=== PATIENT | female | born 1940 | race Caucasian/White ===

== ENCOUNTER 2016-05-25 06:46 | Day surgery (SDC) | payer OTHER, MEDICARE ==
[2016-05-25 07:48] VITALS: BMI 23.3
[2016-05-25] MEDS ORDERED: LIDOCAINE HCL/PF 1% SDV 5ML VIAL ONE (07:56)
[2016-05-25] MEDS ORDERED: PROPOFOL 20 ML ONE ×2 (07:56)
[2016-05-25 08:45] VITALS: TEMP 98.2
[2016-05-25 09:56] VITALS: BP 148/66; PULSE 71
--- NOTE | 2016-05-26 13:44 | PATH ---
Surgical Pathology Report Patient Name: BRIDGET HUNTER [facility]. Rec. #: [id number] /Age/Gender: 1940 (Age: 75) / F Account: [id number] Location: U-ENDOSCOPY Taken: 05/25/2016 Received: 05/25/2016 Reported: 05/26/2016 Physicians: Alvarez Vásquez M.D. Specimen(s) Received A: BX SIGMOID B: BX RECTUM Clinical History Ulcerative colitis Ulcerative proctitis Final Diagnosis A. COLON, SIGMOID, BIOPSY: COLONIC MUCOSA WITH MILD CHRONIC COLITIS WITH FOCAL CRYPT ALTERATION. NO EVIDENCE OF GRANULOMATA OR DYSPLASIA. B. RECTUM, BIOPSY: RECTAL MUCOSA WITH ACTIVE MODERATE CHRONIC PROCTITIS WITH CRYPTITIS, FOCAL MULTINUCLEATED GIANT CELL REACTION, GRANULATION TISSUE AND MODERATE CRYPT ALTERATION. NO EVIDENCE OF DYSPLASIA. Electronically Signed Heber Hooks M.D. Gross Description A. Received in formalin, labeled "biopsy sigmoid" is a kraus, irregular portion of soft tissue measuring 0.2 cm in greatest dimension. The specimen is submitted in toto in one cassette. B. Received in formalin, labeled "biopsy rectum" is a kraus, irregular portion of soft tissue measuring 0.6 cm in greatest dimension. The specimen is submitted in toto in one cassette. 05/25/201605/25/2016
== END 2016-05-25 09:57 | disposition home or self-care (01) ==
LOC: JASU-ENDO 06:46
PROVIDERS: ATTEND Internal Medicine Gastroenterology
PROC: 0DBP8ZX Excision of Rectum, Via Natural or Artificial Opening Endoscopic, Diagnostic (ICD-10-PCS; principal; 2016-05-25 08:00)
DX: K62.6 Ulcer of anus and rectum (principal); K64.8 Other hemorrhoids
CPT/HCPCS: 88305-TC

== ENCOUNTER 2017-01-28 07:27 | Day surgery (SDC) | payer OTHER, MEDICARE ==
[2017-01-28 09:36] VITALS: TEMP 97.9
--- NOTE | 2017-01-28 09:53 | HP ---
Satellite [facility] - Chief Complaint Chief Complaint: PAtient seen and examined. Still has abdominal cramping, diarrhea. Denies any cough, shortness of breath, abdominal pain, nausea, vomiting, diarrhea/urinary symptoms History Source: Patient - Past Medical History Allergies/Adverse Reactions: Allergies Allergy/AdvReac Type Severity Reaction Status Date / Time No Known Allergies Allergy Verified 08/13/11 14:58 Cardiovascular: Yes: HTN Gastrointestinal: Yes: Ulcerative Colitis, Other - Current Medications Current Medications: Home Medications Medication Instructions Recorded Nifedipine [Procardia Xl] 60 mg PO DAILY 08/13/11 Mesalamine [Lialda] 1.2 gm PO DAILY 02/28/16 Sumatriptan Succinate [Imitrex] 50 mg PO PRN 02/28/16 Aspirin/Acetaminophen/Caffeine 1 each PO PRN PRN 03/02/16 [Excedrin Migraine Caplet] Mesalamine Enema [Rowasa Enema -] 4 gm RC HS #0 enema 03/02/16 Omeprazole 20 mg PO DAILY 03/02/16 Ipratropium/Albuterol Sulfate 4 gm IH DAILY 05/25/16 [Combivent Respimat Inhal Ponce] Satellite Physical Exam - Physical Examination Vital Signs: Vital Signs Period Temp Pulse Resp BP Sys/Small Pulse Ox Last 24 Hr 97.9 F-97.9 F 78-78 16-16 127-127/81-81 General Appearance: Well Developed, Alert & Oriented x3 Lung: Clear to auscultation, Normal air movement Heart: Regular rate & rhythm, Normal S1, Normal S2 Abdomen: Soft, No tenderness, Normal bowel sounds Extremities: No edema Neurological: Intact Satellite Impression/Plan - Impression/Plan Impression: 76 y/o patient with ulcerative colitis, iron deficiency anemia. reviewed PET-CT results with patient --stable RUL lung nodule, with minimal activity. New 0.8cm lt. adrenal uptake ---will need repeat CT a/p per adrenal protocol in 6 weeks from 01/07. will continue iv iron. Rediscussed the need to f/u with Dr. Arce. Discussed dthat adrenal finding is worrsiome and they need to f/u with CT scan adrenal protocol and f/u after. aslo need to f/u with Dr. huffman
[2017-01-28] MEDS ORDERED: IRON SUCROSE INJECTION 100 MG in SODIUM CHLORIDE 100 ML IVPB ONE (10:00)
[2017-01-28 11:19] VITALS: BP 127/68; PULSE 75
== END 2017-01-28 10:15 | disposition home or self-care (01) ==
LOC: JONCCHEMO 07:27 → J7W 08:48 → JONCCHEMO 10:15
PROVIDERS: ATTEND Internal Medicine Hematology & Oncology
PROC: 3E033GC Introduction of Other Therapeutic Substance into Peripheral Vein, Percutaneous Approach (ICD-10-PCS; principal; 2017-01-28)
DX: D50.9 Iron deficiency anemia, unspecified (principal); K51.90 Ulcerative colitis, unspecified, without complications
CPT/HCPCS: 36415; 80053; 80061; 81003; 81015; 82306; 82607; 83036; 83721; 84439; 84443; 85027; 96365; 96417; J1756

== ENCOUNTER 2017-02-11 07:35 | Day surgery (SDC) | payer OTHER, MEDICARE ==
[2017-02-11] MEDS: IRON SUCROSE INJECTION 100 MG in SODIUM CHLORIDE 100 ML IVPB ONE ×2 (08:45→11:24)
[2017-02-11 08:56] VITALS: TEMP 98.2
[2017-02-11 09:26] VITALS: BP 118/72; PULSE 79
== END 2017-02-11 09:30 | disposition home or self-care (01) ==
LOC: JONCNONCHE 07:35 → J7W 08:38 → JONCNONCHE 09:30
PROVIDERS: ATTEND Internal Medicine Hematology & Oncology
PROC: 3E033GC Introduction of Other Therapeutic Substance into Peripheral Vein, Percutaneous Approach (ICD-10-PCS; principal; 2017-02-11)
DX: E61.1 Iron deficiency (principal); K90.9 Intestinal malabsorption, unspecified
CPT/HCPCS: 96365; 96417; J1756

== ENCOUNTER 2017-04-02 07:40 | Day surgery (SDC) | payer OTHER, MEDICARE ==
[2017-04-02] MEDS ORDERED: IRON SUCROSE INJECTION 100 MG in SODIUM CHLORIDE 100 ML IVPB ONE (08:30)
[2017-04-02 09:03] VITALS: TEMP 98.2
[2017-04-02 09:50] VITALS: BP 128/76; PULSE 83
== END 2017-04-02 09:40 | disposition home or self-care (01) ==
LOC: JONCNONCHE 07:40 → J7W 08:29 → JONCNONCHE 09:40
PROVIDERS: ATTEND Internal Medicine Hematology & Oncology
PROC: 3E033GC Introduction of Other Therapeutic Substance into Peripheral Vein, Percutaneous Approach (ICD-10-PCS; principal; 2017-04-02)
DX: D50.9 Iron deficiency anemia, unspecified (principal)
CPT/HCPCS: 36415; 80053; 82728; 83540; 83550; 85025; 85651; 86140; 96365; J1756

== ENCOUNTER 2017-11-02 09:47 | Observation (INO) | payer OTHER, MEDICARE ==
[2017-11-02 10:10] VITALS: BMI 20.3
--- NOTE | 2017-11-02 10:19 | PDOC ---
History of Present Illness - General Chief Complaint: Blood Transfusion Stated Complaint: BLOOD TRANSFUSION (PCP SENT) Time Seen by Provider: 11/02/17 10:19 - History of Present Illness Initial Comments: 11/02/17 10:20 Ms. Smith is a 77 yo female w/ pmh of ulcerative colitis, COPD/emphysema, headaches, and lung nodule (followed by Dr. Aldrich) who presents for evaluation of noted low hemoglobin on office labs to 5.5. Patient reports she has felt more tired for the past week but has otherwise been at her baseline. The patient denies chest pain, shortness of breath, headache and dizziness. Denies fever, chills, nausea, vomit, diarrhea and constipation. Denies dysuria, frequency, urgency and hematuria. Allergies: NKDA Past History - Past Medical History Allergies/Adverse Reactions: Allergies Allergy/AdvReac Type Severity Reaction Status Date / Time No Known Allergies Allergy Verified 11/02/17 10:06 Home Medications: Ambulatory Orders Nifedipine [Procardia Xl] 60 mg PO DAILY 08/13/11 Omeprazole 20 mg PO DAILY 03/02/16 Ipratropium/Albuterol Sulfate [Combivent Respimat 20-100 Mcg] 4 gm IH DAILY Sumatriptan Succinate [Imitrex] 100 mg PO PRN #90 tab 02/27/17 Aspirin/Acetaminophen/Caffeine [Excedrin Migraine Caplet] 1 each PO PRN Anemia: (IRON DEFICIENCY ANEMIA) Asthma: Yes (EMPHYSEMA) Cancer: Yes (UTERINE;) Cardiac Disorders: No CVA: No COPD: Yes CHF: No Dementia: No Diabetes: No GI Disorders: Yes (ULCERATIVE COLITIS;IBD) Disorders: No HTN: Yes Hypercholesterolemia: Yes Liver Disease: No Seizures: No Thyroid Disease: No - Surgical History Abdominal Surgery: Yes (PARTIAL HYSTERECTOMY) Appendectomy: No Cardiac Surgery: No Cholecystectomy: Yes Lung Surgery: No Neurologic Surgery: No Orthopedic Surgery: No - Suicide/Smoking/Psychosocial Hx Smoking History: Former smoker Have you smoked in the past 12 months: No If you are a former smoker, when did you quit?: 1992 Information on smoking cessation initiated: No Hx Alcohol Use: Yes (SOCIALLY) Drug/Substance Use Hx: No Substance Use Type: None Review of Systems - Review of Systems Comments:: 11/02/17 10:24 GENERAL/CONSTITUTIONAL: Generalized weakness. No fever or chills. HEAD, EYES, EARS, NOSE AND THROAT: No change in vision. No ear pain or discharge. No sore throat. CARDIOVASCULAR: No chest pain or shortness of breath RESPIRATORY: No cough, wheezing, or hemoptysis. GASTROINTESTINAL: No nausea, vomiting, diarrhea or constipation. GENITOURINARY: No dysuria, frequency, or change in urination. MUSCULOSKELETAL: No joint or muscle swelling or pain. No neck or back pain. SKIN: No rash NEUROLOGIC: No headache, vertigo, loss of consciousness, or change in strength/ sensation. ENDOCRINE: No increased thirst. No abnormal weight change HEMATOLOGIC/LYMPHATIC: No anemia, easy bleeding, or history of blood clots. ALLERGIC/IMMUNOLOGIC: No hives or skin allergy. *Physical Exam - Vital Signs Last Vital Signs Temp Pulse Resp BP Pulse Ox 97.9 F 78 20 141/79 98 11/02/17 09:55 11/02/17 09:55 11/02/17 09:55 11/02/17 09:55 11/02/17 09:55 - Physical Exam Comments: 11/02/17 10:24 GENERAL: Awake, alert, and fully oriented, in no acute distress HEAD: No signs of trauma, normocephalic, atraumatic EYES: PERRLA, EOMI, sclera anicteric, conjunctiva clear ENT: Auricles normal inspection, hearing grossly normal, nares patent, oropharynx clear without exudates. Moist mucosa NECK: Normal ROM, supple, no lymphadenopathy, JVD, or masses LUNGS: No distress, speaks full sentences, clear to auscultation bilaterally HEART: Regular rate and rhythm, normal S1 and S2, no murmurs, rubs or gallops, peripheral pulses normal and equal bilaterally. ABDOMEN: Soft, nontender, normoactive bowel sounds. No guarding, no rebound. No masses EXTREMITIES: Normal inspection, Normal range of motion, no edema. No clubbing or cyanosis. NEUROLOGICAL: Cranial nerves II through XII grossly intact. Normal speech, normal gait, no focal sensorimotor deficits SKIN: Warm, Dry, normal turgor, no rashes or lesions noted. ED Treatment Course - LABORATORY CBC & Chemistry Diagram: 11/02/17 10:39 11/02/17 10:39 Medical Decision Making - Medical Decision Making 11/02/17 11:29 Ms. Smith is a 77 yo female w/ pmh as described who presents for evaluation of anemia noted on outpatient labs and generalized weakness. Labs confirmed as below. Order placed for 2 units of blood for treatment. Patient currently pending admission for transfusion. 11/02/17 11:45 Discussed patient w/ Dr. Dunham for admission and alerted oncologist Dr. Duran. Patient admitted for further evaluation. *DC/Admit/Observation/Transfer Diagnosis at time of Disposition: Anemia Qualifiers: Anemia type: unspecified type Qualified Code(s): D64.9 - Anemia, unspecified - Discharge Dispostion Decision to Admit order: Yes - Referrals Referrals: Jackeline Dunham MD [Primary Care Provider] - - Patient Instructions - Post Discharge Activity
[2017-11-02 11:00] LABS: BASO % 1.4 % (0-2.0); EOS % 1.7 % (0-4.5); HEMATOCRIT 17.5 % (32.4-45.2); LYMPH % 27.6 % (8-40); MCHC 28.7 g/dl (32.0-36.0); MEAN CELL VOLUME 62.8 fl (80-96); MEAN PLT VOLUME 6.9 fl (7.5-11.1); NEUT % 61.3 % (42.8-82.8); PLATELET COUNT 307 K/MM3 (134-434); RBC 2.79 M/mm3 (3.60-5.2); RDW 20.1 % (11.6-15.6); WHITE BLOOD COUNT 2.9 K/mm3 (4.0-10.0)
[2017-11-02 11:30] LABS: ALBUMIN 3.1 g/dl (3.4-5.0); ALK PHOS 90 U/L (45-117); ANION GAP 7 (8-16); BILIRUBIN,TOTAL 0.4 mg/dL (0.2-1.0); BLOOD UREA NITROGEN 17 mg/dL (7-18); CHLORIDE 107 mmol/L (98-107); CO2 27 mmol/L (21-32); CREATININE 0.6 mg/dL (0.55-1.02); GLUCOSE,RANDOM 86 mg/dL (74-106); POTASSIUM 3.4 mmol/L (3.5-5.1); SGOT/AST 13 U/L (15-37); SGPT/ALT 16 U/L (12-78); SODIUM 141 mmol/L (136-145)
[2017-11-02] MEDS ORDERED: SUMAtriptan SUCCINATE 50 MG TABLET ONE (11:36)
[2017-11-02] MEDS ORDERED: SUMAtriptan SUCCINATE 50 MG TABLET PO SCH (11:45)
[2017-11-02] MEDS ORDERED: SUMAtriptan SUCCINATE 50 MG TABLET PO ONE (11:45)
[2017-11-02 12:18] LABS: ANISOCYTOSIS 3+; MACROCYTOSIS 0; PLATELET ESTIMATE NORMAL; TEAR DROP CELLS 1+
[2017-11-02 12:57] LABS: URINE APPEARANCE CLEAR; URINE BILIRUBIN NEGATIVE (<2.0 mg/dL); URINE COLOR YELLOW; URINE GLUCOSE (UA) NEGATIVE (NEGATIVE); URINE KETONE NEGATIVE (NEGATIVE); URINE LEUK ESTERASE TRACE (NEGATIVE); URINE NITRITE NEGATIVE (NEGATIVE); URINE UROBILINOGEN NEGATIVE mg/dL (0.2-1.0)
[2017-11-02 13:01] LABS: URINE PROTEIN 1+ (NEGATIVE)
[2017-11-02 13:03] LABS: EPI CELLS RARE /HPF (FEW); URINE HYALINE CAST 3 /lpf; URINE MUCUS RARE
--- NOTE | 2017-11-02 13:32 | PDOC ---
Attending Attestation - HPI HPI: 11/02/17 13:37 The patient is a 77 year old female with a significant past medical history of ulcerative colitis, COPD/emphysema, lung nodule, hypertension, hyperlipidemia, and headaches who presents to the emergency department for evaluation of low hemoglobin. The patient reports a 1 week history of generalized weakness. The patient was prompted to visit the emergency department for a blood transfusion secondary to Hgb level of 5.5. The patient denies chest pain, shortness of breath, headache and dizziness. Denies fever, chills, nausea, vomit, diarrhea and constipation. Denies dysuria, frequency, urgency and hematuria. Allergies: No known drug allergies. Social History: Social alcohol consumption. Former Smoker. No reported drug use. Surgical History: Partial Hysterectomy, Cholecystectomy PCP: Dr. Jackeline Dunham Oncologist: Dr. Elinor Duran - Physicial Exam PE: Vitals: Triage Vital signs reviewed General Appearance: (+)Pale, weak, no acute distress. Head: Atraumatic, normocephalic Eyes: Pupils equal reactive round, extraocular movement intact Neck: Supple Chest Wall: Nontender Cardiac: Regular rate and rhythm, no murmurs, no rubs, no gallops, Lungs: Clear to auscultation bilateral, good air movement bilaterally, Abdomen: Soft, nondistended, nontender to palpation Extremities: Full range of motion to all extremities, no cyanosis, clubbing, or edema Skin: Warm and dry, no rashes or lesions, no petechiae Psych: normal mood, normal affect - Medical Decision Making The patient is a 77 year old female with a significant past medical history of ulcerative colitis, COPD/emphysema, lung nodule, hypertension, hyperlipidemia, and headaches who presents to the emergency department for evaluation of low hemoglobin. Plan: ECG Labs UA <Luis Burch - Last Filed: 11/02/17 14:39> - Resident Resident Name: Alex Reza - ED Attending Attestation I have performed the following: I have examined & evaluated the patient, The case was reviewed & discussed with the resident, I agree w/resident's findings & plan, Exceptions are as noted - Medical Decision Making Patient with chronic anemia sent to ED for blood transfusion. Gastroenterology aware. We'll admit to medicine for further management PRBCs ordered by ER. <Carlton Ardon - Last Filed: 11/02/17 16:53> Attestations - Attestations Documentation prepared by Luis Burch, acting as medical assistant per diem for Carlton Ardon MD. <Luis Burch - Last Filed: 11/02/17 14:39>
--- NOTE | 2017-11-02 13:45 | HP ---
Admitting History and Physical - Primary Care Physician PCP: Jackeline Dunham - Admission Chief Complaint: anemia History of Present Illness: 77 yr old female with ulcerative colitis, COPD/emphysema,lung nodule- sent from dr Aldrich's office with Hb 5 She has been feeling SOB , tired for the past 1 week. Denies dark stools No abdominal pain Has been taking excedrin frequently for headaches History Source: Patient, Family Member (daughter) Limitations to Obtaining History: No Limitations - Past Medical History Cardiovascular: Yes: HTN Pulmonary: Yes: COPD, Other (lung nodule) Gastrointestinal: Yes: Ulcerative Colitis, Other - Smoking History Smoking history: Former smoker Have you smoked in the past 12 months: No If you are a former smoker, when did you quit?: 1992 - Alcohol/Substance Use Hx Alcohol Use: Yes (SOCIALLY) Home Medications - Allergies Allergies/Adverse Reactions: Allergies Allergy/AdvReac Type Severity Reaction Status Date / Time No Known Allergies Allergy Verified 11/02/17 10:06 - Home Medications Home Medications: Ambulatory Orders Nifedipine [Procardia Xl] 60 mg PO DAILY 08/13/11 Omeprazole 20 mg PO DAILY 03/02/16 Ipratropium/Albuterol Sulfate [Combivent Respimat 20-100 Mcg] 4 gm IH DAILY Sumatriptan Succinate [Imitrex] 100 mg PO PRN #90 tab 02/27/17 Aspirin/Acetaminophen/Caffeine [Excedrin Migraine Caplet] 1 each PO PRN Review of Systems - Review of Systems Constitutional: reports: Weakness. denies: Chills, Fever, Loss of Appetite Physical Examination Vital Signs: Vital Signs Temperature 97.9 F 11/02/17 09:55 Pulse Rate 78 11/02/17 09:55 Respiratory Rate 20 11/02/17 09:55 Blood Pressure 141/79 11/02/17 09:55 O2 Sat by Pulse Oximetry (%) 96 11/02/17 12:00 Constitutional: Yes: No Distress, Calm, Pallor Cardiovascular: Yes: Regular Rate and Rhythm Respiratory: Yes: CTA Bilaterally Gastrointestinal: Yes: Normal Bowel Sounds, Soft. No: Tenderness Edema: No Neurological: Yes: Alert, Oriented Labs: CBC, BMP 11/02/17 10:39 11/02/17 10:39 Imaging - Results EKG: Image Reviewed (NSR) Problem List - Problems (1) Anemia Code(s): D64.9 - ANEMIA, UNSPECIFIED Qualifiers: Anemia type: iron deficiency Iron deficiency anemia type: chronic blood loss Qualified Code(s): D50.0 - Iron deficiency anemia secondary to blood loss (chronic) (2) Ulcerative colitis Code(s): K51.90 - ULCERATIVE COLITIS, UNSPECIFIED, WITHOUT COMPLICATIONS (3) Weakness Code(s): R53.1 - WEAKNESS Assessment/Plan PLAN transfuse PRBC- will need Lasix in between GI and Hematology eval headaches due to severe anemia- explained to the pt and daughter Pt is anxious to leave She wants to get PRBC and go home GI - Protonix
[2017-11-02] MEDS ORDERED: FUROSEMIDE 40 MG/4 ML INJECTABLE VIAL IVPUSH ONE (13:57)
[2017-11-02] MEDS: PANTOPRAZOLE SODIUM 40 MG VIAL IVPUSH SCH (18:32)
--- NOTE | 2017-11-02 18:59 | CON.GI ---
Consult Consult Specialty:: Gastroenterology Referred by:: Jackeline Dunham MD Reason for Consultation:: Anemia - History of Present Illness Chief Complaint: Fatigue. History of Present Illness: 77F is admitted after being found to have a Hb [address] Duran. Lisa denies any hematochezia, melena or hematemesis. Her bowel movements have been unchanged. For over a year she has been having urgency with diarrhea and was cared for by Dr Vásquez. 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 A colonoscopy scheduled for 2013 was canceled. Her last colonoscopy on 03/02/16 was incomplete due to a sigmoid stricture. Colitis was found in the rectum and sigmoid and rectal polyps were removed which proved to be granulation tissue. EGD on revealed a small gastric ulcer and gastritis. He repeated a sigmoidoscopy on 05/25/16 and reported normal sigmoid mucosa and persistent proctitis but no comment on the previously noted stricture. She has not had a solid bowel movement in over a year. She claims that her weight is steady. Dr. Vásquez alludes to Lisa having CLL in the last colonoscopy report which precluded a trial of a biologic agent. He has treated her with pulses of steroids. A CT in 03/12 reveals an ahaustral thickened left colon with fat stranding extending to the rectum but no obstruction. A 2.8cm right hepatic lobe cyst was reported as normal. Lisa has intermittent lower abdominal cramps with fecal urgency but tells me that has been her pattern for over a year. She did have C diff colitis in the past and has a right colon lipoma. I advised a colonoscopy when I found blood in her stool during her consultation on 09/30/17 but she did not schedule it. 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: Yes: Migraine Cardio/Vascular: Yes: HTN Pulmonary: Yes: COPD Gastrointestinal: Yes: Gastritis, Peptic Ulcer Disease (small gastric antrum ulcer 03/12), Ulcerative Colitis (since 2011), Other (sigmoid stricture, h/o C diff colitis, ascending colon lipoma) Hepatobiliary: Yes: Other (hepatic cyst) Reproductive: Yes: Other (TAHBSO for cervical cancer) Heme/Onc: Yes: Anemia (chronic iron deficiency anemia), Cancer (CLL) Musculoskeletal: Yes: Chronic low back pain (lumbar disc disease), Osteoarthritis - Past Surgical History Past Surgical History: Yes: Cholecystectomy (open), Colonoscopy, Hysterectomy ( TAHBSO for cervical cancer), Oopherectomy (for cysts), Tonsillectomy, Upper Endoscopy - Alcohol/Substance Use Hx Alcohol Use: Yes (SOCIALLY) History of Substance Use: reports: None - Smoking History Smoking history: Former smoker Have you smoked in the past 12 months: No If you are a former smoker, when did you quit?: 1992 - Social History Usual Living Arrangement: With Child ADL: Independent 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 Place of : [facility] History of Recent Travel: No Home Medications - Allergies Allergies/Adverse Reactions: Allergies Allergy/AdvReac Type Severity Reaction Status Date / Time No Known Allergies Allergy Verified 11/02/17 10:06 - Home Medications Home Medications: Ambulatory Orders Nifedipine [Procardia Xl] 60 mg PO DAILY 08/13/11 Omeprazole 20 mg PO DAILY 03/02/16 Ipratropium/Albuterol Sulfate [Combivent Respimat 20-100 Mcg] 4 gm IH DAILY Sumatriptan Succinate [Imitrex] 100 mg PO PRN #90 tab 02/27/17 Aspirin/Acetaminophen/Caffeine [Excedrin Migraine Caplet] 1 each PO PRN Family Disease History - Family Disease History Family Disease History: Heart Disease: Mother ( 87 of [place]), CA: Brother ( prostate cancer), Other: Father ( 90 CVA) Review of Systems - Review of Systems Constitutional: reports: Weakness Eyes: reports: No Symptoms HENT: reports: No Symptoms Neck: reports: No Symptoms Cardiovascular: reports: No Symptoms Respiratory: reports: Exercise Intolerance, SOB on Exertion Gastrointestinal: reports: Abdominal Pain, Diarrhea Genitourinary: reports: No Symptoms Musculoskeletal: reports: Back Pain, Muscle Weakness Neurological: reports: No Symptoms Physical Exam-GI Vital Signs: Vital Signs Temperature 98.2 F 11/02/17 13:57 Pulse Rate 88 11/02/17 13:57 Respiratory Rate 16 11/02/17 17:00 Blood Pressure 157/82 11/02/17 13:57 O2 Sat by Pulse Oximetry (%) 100 11/02/17 17:00 CBC,CMP WBC 2.9 K/mm3 (4.0-10.0) L 11/02/17 10:39 RBC 2.79 M/mm3 (3.60-5.2) L 11/02/17 10:39 Hgb 5.0 GM/dL (10.7-15.3) L* 11/02/17 10:39 Hct 17.5 % (32.4-45.2) L D 11/02/17 10:39 MCV 62.8 fl (80-96) L 11/02/17 10:39 MCH 18.0 pg (25.7-33.7) L D 11/02/17 10:39 MCHC 28.7 g/dl (32.0-36.0) L 11/02/17 10:39 RDW 20.1 % (11.6-15.6) H 11/02/17 10:39 Plt Count 307 K/MM3 (134-434) D 11/02/17 10:39 MPV 6.9 fl (7.5-11.1) L 11/02/17 10:39 Absolute Neuts (auto) 1.8 # 11/02/17 10:39 Neutrophils % 61.3 % (42.8-82.8) 11/02/17 10:39 Lymphocytes % 27.6 % (8-40) D 11/02/17 10:39 Monocytes % 8.0 % (3.8-10.2) 11/02/17 10:39 Eosinophils % 1.7 % (0-4.5) 11/02/17 10:39 Basophils % 1.4 % (0-2.0) 11/02/17 10:39 Nucleated RBC % 1 % (0-0) H 11/02/17 10:39 Hypochromia 3+ 11/02/17 10:39 Platelet Estimate Normal 11/02/17 10:39 Polychromasia 3+ 11/02/17 10:39 Poikilocytosis 2+ 11/02/17 10:39 Anisocytosis 3+ 11/02/17 10:39 Microcytosis 3+ 11/02/17 10:39 Macrocytosis 0 11/02/17 10:39 Tear Drop Cells 1+ 11/02/17 10:39 Fragmented RBCs 1+ 11/02/17 10:39 Schistocytes 1+ 11/02/17 10:39 Sodium 141 mmol/L (136-145) 11/02/17 10:39 Potassium 3.4 mmol/L (3.5-5.1) L 11/02/17 10:39 Chloride 107 mmol/L (98-107) 11/02/17 10:39 Carbon Dioxide 27 mmol/L (21-32) 11/02/17 10:39 Anion Gap 7 (8-16) L 11/02/17 10:39 BUN 17 mg/dL (7-18) 11/02/17 10:39 Creatinine 0.6 mg/dL (0.55-1.02) 11/02/17 10:39 Creat Clearance w eGFR > 60 (>60) 11/02/17 10:39 Random Glucose 86 mg/dL (74-106) 11/02/17 10:39 Calcium 8.0 mg/dL (8.5-10.1) L 11/02/17 10:39 Total Bilirubin 0.4 mg/dL (0.2-1.0) 11/02/17 10:39 AST 13 U/L (15-37) L 11/02/17 10:39 ALT 16 U/L (12-78) 11/02/17 10:39 Alkaline Phosphatase 90 U/L (45-117) 11/02/17 10:39 Total Protein 7.0 g/dl (6.4-8.2) 11/02/17 10:39 Albumin 3.1 g/dl (3.4-5.0) L 11/02/17 10:39 Current Medications Generic Name Dose Route Start Last Admin Trade Name Elidia PRN Reason Stop Dose Admin Pantoprazole Sodium 40 mg 11/02/17 14:00 11/02/17 18:32 Protonix Iv IVPUSH 40 mg DAILY ALEXANDRA Administration Sumatriptan Succinate 100 mg 11/02/17 11:45 11/02/17 11:38 Imitrex - PO 100 mg ONCE ALEXANDRA Administration Constitutional: Yes: Calm, Pallor, Thin Eyes: Yes: Conjunctiva Clear HENT: Yes: Atraumatic Neck: Yes: Supple Cardiovascular: Yes: Regular Rate and Rhythm Respiratory: Yes: CTA Bilaterally Gastrointestinal Inspection: Yes: Scars (oblique RUQ and Pfannensteil incisions) ...Auscultate: Yes: Normoactive Bowel Sounds ...Palpate: Yes: Soft, Other (nontender) ...Percussion: Yes: Tympanitic ...Rectal Exam: Yes: Deferred (as not private enough in ER) Edema: No Neurological: Yes: Alert, Oriented Labs: CBC, BMP 11/02/17 10:39 11/02/17 10:39 Problem List - Problems (1) Ulcerative colitis Assessment/Plan: I am concerned that Lisa's sigmoid stricture represents a cancer in the setting of ulcerative colitis and underlies her anemia and occult bleeding. It may alternatively reflect a partially obstructing stricture which is causing paradoxical diarrhea. I have discussed these issues with her and the likely need for surgery. I have proposed that she undergo a colonoscopy to assess this stricture and given her ulcer history and EGD as well. I have informed her of the potential risks of perforation and hemorrhage. She is reluctant to consent until she can discuss it with her daughter Yuan. I have also advised her to have a CT scan to which she is agreeable. Mesalamine and a PPI will be continued in the interim. Code(s): K51.90 - ULCERATIVE COLITIS, UNSPECIFIED, WITHOUT COMPLICATIONS (2) Stricture of intestine or colon Code(s): K56.699 - OTHER INTESTNL OBST UNSP TO PARTIAL VERSUS COMPLETE OBST (3) Anemia Assessment/Plan: Agree with need to transfuse. Will need iron infusion as well. Code(s): D64.9 - ANEMIA, UNSPECIFIED Qualifiers: Anemia type: iron deficiency Iron deficiency anemia type: chronic blood loss Qualified Code(s): D50.0 - Iron deficiency anemia secondary to blood loss (chronic) (4) Diarrhea Assessment/Plan: due to active colitis or paradoxical and due to the stricture Code(s): R19.7 - DIARRHEA, UNSPECIFIED Qualifiers: Diarrhea type: unspecified type Qualified Code(s): R19.7 - Diarrhea, unspecified
[2017-11-02] MEDS: MESALAMINE 800 MG TABLET.DR PO SCH (21:38)
[2017-11-02 22:00] LABS: HEMATOCRIT 22.9 % (32.4-45.2); MCHC 29.7 g/dl (32.0-36.0); MEAN CELL VOLUME 67.2 fl (80-96); MEAN PLT VOLUME 8.1 fl (7.5-11.1); PLATELET COUNT 373 K/MM3 (134-434); RBC 3.41 M/mm3 (3.60-5.2); RDW 24.8 % (11.6-15.6); WHITE BLOOD COUNT 3.8 K/mm3 (4.0-10.0)
[2017-11-02 22:11] LABS: MCH 19.9 pg (25.7-33.7)
[2017-11-02 22:14] LABS: HEMOGLOBIN 6.8 GM/dL (10.7-15.3)
[2017-11-03] MEDS ORDERED: SUMAtriptan SUCCINATE 50 MG TABLET PO ONE (02:45)
[2017-11-03] MEDS: MESALAMINE 800 MG TABLET.DR PO SCH (06:41)
--- NOTE | 2017-11-03 08:23 | PN ---
Progress Note (short form) - Note Progress Note: Consult dictated Problems: 1- CHRONIC FE++ DEFICIENCY- PRESEENTED WITH HB-5.0 RECIEVED 3 UNITS PACKED CELLS TO DATE 2- COLITIS- FOR COLONOSCOPY; CONCERN RE: STRICTURE 3- RUL STABLE PULMONARY NODULE (PET NEGATIVE) BUT INCREASE LLL GROUND GLASS APPEARANCE ON CT IN 04/11 PLAN; IRON INFUSION-ORDERED FOLLOW UP WITH GI RE: UPPER AND LOWER ENDOSCOPY TRANSFUSE TO QTL32-37% FOLLOW UP WITH PULMONARY
[2017-11-03 08:26] LABS: BASO % 1.3 % (0-2.0); EOS % 2.4 % (0-4.5); HEMATOCRIT 30.3 % (32.4-45.2); HEMOGLOBIN 9.4 GM/dL (10.7-15.3); LYMPH % 18.6 % (8-40); MCH 21.8 pg (25.7-33.7); MCHC 31.1 g/dl (32.0-36.0); MEAN CELL VOLUME 70.2 fl (80-96); MEAN PLT VOLUME 8.5 fl (7.5-11.1); MONO % 11.8 % (3.8-10.2); NEUT % 65.9 % (42.8-82.8); PLATELET COUNT 313 K/MM3 (134-434); RBC 4.32 M/mm3 (3.60-5.2); RDW 25.3 % (11.6-15.6); WHITE BLOOD COUNT 4.3 K/mm3 (4.0-10.0)
[2017-11-03 08:58] LABS: ALBUMIN 3.2 g/dl (3.4-5.0); ANION GAP 8 (8-16); BLOOD UREA NITROGEN 13 mg/dL (7-18); CALCIUM 8.6 mg/dL (8.5-10.1); CHLORIDE 105 mmol/L (98-107); CO2 27 mmol/L (21-32); CREATININE 0.5 mg/dL (0.55-1.02); GLUCOSE,RANDOM 92 mg/dL (74-106); LDH 206 U/L (84-246); POTASSIUM 3.7 mmol/L (3.5-5.1); SGOT/AST 16 U/L (15-37); SGPT/ALT 18 U/L (12-78); SODIUM 140 mmol/L (136-145); TOT PROT 7.4 g/dl (6.4-8.2)
[2017-11-03 08:59] LABS: ALK PHOS 93 U/L (45-117)
--- NOTE | 2017-11-03 09:00 | CONS ---
DATE OF CONSULTATION: 11/03/2017 HISTORY OF PRESENT ILLNESS: This is 77-year-old female who presented with a hemoglobin of 5. The patient has a history of colitis, followed by GI. She has had a sigmoid stricture as well. She has had colonoscopies in the past with incomplete evaluation because of the stricture. She has been treated with steroids in the past for the colitis. She has intermittent abdominal cramps and fecal urgency. The patient has been receiving iron therapy as an outpatient. The patient currently with a low white count, which previously was not present. PAST MEDICAL HISTORY: Includes migraines, hypertension, COPD, gastritis, peptic ulcer disease with a gastric ulcer, ulcerative colitis, sigmoid stricture and ascending colon lipoma. There is a past history of C. difficile colitis. She has a history of hepatic cysts. There is a history of uterine cancer. There is a history of chronic iron deficiency, on iron therapy. There is a history of lumbar disk disease. PAST SURGICAL HISTORY: Includes JOSE-BSO for cervical cancer, cholecystectomy, tonsillectomy. SOCIAL HISTORY: She is a former smoker and social drinker. ALLERGIES: No known allergies. MEDICATIONS: Include Procardia 60 mg daily, Prilosec 20 mg daily, Combivent, Imitrex, and Excedrin (aspirin, acetaminophen and caffeine). FAMILY HISTORY: Positive for mother with heart disease. REVIEW OF SYSTEMS: The patient denies headaches, diplopia, epistaxis, dysphagia. She has shortness of breath, minimal cough. No chest pain, no reflux. Denies nausea, vomiting, melena, hematochezia. Denies dysuria, hematuria. She has low back pain. Denies lower extremity edema. PHYSICAL EXAMINATION: General: The patient is lying in bed in no acute distress. Vital Signs: BP 154/80, pulse 104, respiratory rate 20, afebrile. HEENT: Eyes: GER[place]IA, EOM intact. The patient has upper The tongue is papillated. Neck: There is no cervical or supraclavicular lymphadenopathy. Lungs: Decreased breath sounds. Cardiac: Regular rhythm. Breasts: Somewhat atrophic, without dominant masses. Abdomen: Soft. No masses, no organomegaly. Normal bowel sounds. Extremities: No significant edema. LABORATORY DATA: WBC on admission 2900 (currently 3800), hemoglobin 5 (currently 6.8 after transfusion), MCV 62, platelets There are 61 polys, 28 lymphs, 8 monos, 2 eos. There are normal blasts described. Chemistry: Sodium 141, potassium 3.4, chloride 107, CO2 of 27, BUN 17, creatinine 0.6, calcium 8, bilirubin 0.4, AST 13, ALT 16, alkaline phosphatase 90, protein 7, albumin 3.1. IMAGING: CT from March 2017 on review reveals a stable right upper lobe lesion which was PET negative, a ground-glass appearance which is perhaps dense in the left lower lobe. ASSESSMENT AND PLAN: The patient is scheduled for iron infusions, which has been ongoing as an outpatient. She will receive iron infusion while in the hospital. She will have an outpatient colonoscopy and upper endoscopy. She will have followup with Pulmonary as well. OSMANI DELEON M.D. SUZETTE/[id number]
[2017-11-03] MEDS: PANTOPRAZOLE SODIUM 40 MG VIAL IVPUSH SCH (09:48)
[2017-11-03] MEDS ORDERED: IRON SUCROSE INJECTION 200 MG in SODIUM CHLORIDE 100 ML IVPB ONE (10:00)
--- NOTE | 2017-11-03 10:58 | DS ---
Physical Examination Vital Signs: Vital Signs Temperature 98.9 F 11/03/17 06:33 Pulse Rate 98 H 11/03/17 06:33 Respiratory Rate 20 11/03/17 06:33 Blood Pressure 154/80 11/03/17 06:33 O2 Sat by Pulse Oximetry (%) 99 11/03/17 05:00 Constitutional: Yes: No Distress, Calm Cardiovascular: Yes: Regular Rate and Rhythm Respiratory: Yes: CTA Bilaterally Gastrointestinal: Yes: Normal Bowel Sounds, Soft. No: Tenderness Edema: No Labs: CBC, BMP 11/03/17 06:30 11/03/17 06:30 Discharge Summary Reason For Visit: ANEMIA Current Active Problems Anemia (Acute) Stricture of intestine or colon (Acute) Ulcerative colitis (Acute) Hospital Course: Pt admitted for sever anemia Pt received 3 units PRBC and lasix Iron infusion done today Seen by GI and Hematology Advised to get CT abd/pelvis done -- but pt wants to get it done Wednesday where she will get CT chest done Contacted DR Flor-- she should get EGD and colonoscopy-- she has it scheduled in November Stable for me home She will be seeing Dr Aldrich this Wednesday - will get labs done Condition: Good - Instructions Referrals: Jackeline Dunham MD [Primary Care Provider] - Shyanne Flor MD [Staff Physician] - Elinor Duran MD [Staff Physician] - Disposition: HOME - Home Medications Comprehensive Discharge Medication List: Ambulatory Orders Nifedipine [Procardia Xl] 60 mg PO DAILY 08/13/11 Omeprazole 20 mg PO DAILY 03/02/16 Ipratropium/Albuterol Sulfate [Combivent Respimat 20-100 Mcg] 4 gm IH DAILY Sumatriptan Succinate [Imitrex] 100 mg PO PRN #90 tab 02/27/17 Aspirin/Acetaminophen/Caffeine [Excedrin Migraine Caplet] 1 each PO PRN
[2017-11-03 11:22] VITALS: BP 148/80; PULSE 88; TEMP 98.3
--- NOTE | 2017-11-03 11:41 | EKG ---
Test Reason : Blood Pressure : / mmHG Vent. Rate : 084 BPM Atrial Rate : 084 BPM P-R Int : 126 ms QRS Dur : 086 ms QT Int : 424 ms P-R-T Axes : 072 033 043 degrees QTc Int : 501 ms NORMAL SINUS RHYTHM POSSIBLE LEFT ATRIAL ENLARGEMENT PROLONGED QT ABNORMAL ECG WHEN COMPARED WITH ECG OF 25-FEB-2017 15:02, NO SIGNIFICANT CHANGE WAS FOUND Confirmed by DILMA MARTINEZ, RACHLE ([id number]) on 11/03/2017 11:40:58 AM Referred By: Confirmed By:RACHEL PERERA MD
[2017-11-04 06:14] LABS: SERUM IRON SATURATION 8 % (15-55); TOTAL IRON BINDING CAPACITY 405 ug/dL (250-450); UIBC 372 ug/dL (118-369)
[2017-11-04 08:16] LABS: CARCINOEMBRYONIC ANTIGEN 4.6 ng/mL (0.0-4.7)
[2017-11-04] MEDS ORDERED: PEG3350/SOD SULF,BICARB,CL/KCL 4,000 ML SOLN.RECON PO ONE (09:00)
[2017-11-08 05:03] LABS: PROTEINASE-3 ANTIBODY <3.5
== END 2017-11-03 13:18 | disposition home or self-care (01) ==
LOC: JER 09:47 → JERBED 11:33 → J8W 19:00
PROVIDERS: ADMIT Internal Medicine; ATTEND Internal Medicine
PROC: 30233N1 Transfusion of Nonautologous Red Blood Cells into Peripheral Vein, Percutaneous Approach (ICD-10-PCS; principal; 2017-11-02)
PROC: 3E033GC Introduction of Other Therapeutic Substance into Peripheral Vein, Percutaneous Approach (ICD-10-PCS; 2017-11-02)
DX: D50.0 Iron deficiency anemia secondary to blood loss (chronic) (principal); K51.90 Ulcerative colitis, unspecified, without complications; R53.1 Weakness; J43.9 Emphysema, unspecified; R91.1 Solitary pulmonary nodule; I10 Essential (primary) hypertension; E78.5 Hyperlipidemia, unspecified; K56.699 Other intestinal obstruction unspecified as to partial versus complete obstruction; K58.9 Irritable bowel syndrome, unspecified; R19.7 Diarrhea, unspecified; Z85.42 Personal history of malignant neoplasm of other parts of uterus; Z90.710 Acquired absence of both cervix and uterus; Z87.891 Personal history of nicotine dependence; Z86.19 Personal history of other infectious and parasitic diseases
CPT/HCPCS: 36415; 36430; 80053; 81003; 81015; 82378; 82728; 83010; 83520; 83540; 83550; 83615; 85025; 85027; 85044; 86140; 86256; 86671; 86850; 86900; 86901; 86922; 87086; 93005; 93010; 96365; 96375; 99285-25; G0378; J1756; P9038; P9058

== ENCOUNTER 2017-11-26 07:25 | Day surgery (SDC) | payer OTHER, MEDICARE ==
[2017-11-26] MEDS ORDERED: IRON SUCROSE INJECTION 200 MG in SODIUM CHLORIDE 100 ML IVPB ONE (08:30)
[2017-11-26 17:08] VITALS: TEMP 97.9
[2017-11-26 17:09] VITALS: BP 125/66; PULSE 82
== END 2017-11-26 17:00 | disposition home or self-care (01) ==
LOC: JONCNONCHE 07:25 → J7W 15:45 → JONCNONCHE 17:00
PROVIDERS: ATTEND Internal Medicine Hematology & Oncology
PROC: 3E033GC Introduction of Other Therapeutic Substance into Peripheral Vein, Percutaneous Approach (ICD-10-PCS; principal; 2017-11-26)
DX: D50.9 Iron deficiency anemia, unspecified (principal)
CPT/HCPCS: 96365; J1756

== ENCOUNTER 2017-12-15 07:27 | Day surgery (SDC) | payer OTHER, MEDICARE ==
[~2017-12-15 07:27] MED LIST: IRON SUCROSE INJECTION 200 MG in SODIUM CHLORIDE 100 ML IVPB ONE
[2017-12-15 09:25] VITALS: TEMP 97.5
[2017-12-15 09:29] VITALS: BP 153/81; PULSE 66
[2017-12-15] MEDS ORDERED: IRON SUCROSE INJECTION 200 MG in SODIUM CHLORIDE 100 ML IVPB ONE (10:00)
== END 2017-12-15 09:30 | disposition home or self-care (01) ==
LOC: JONCCHEMO 07:27 → JONCNONCHE 07:27 → J7W 08:33 → JONCNONCHE 09:30
PROVIDERS: ATTEND Internal Medicine Hematology & Oncology
PROC: 3E033GC Introduction of Other Therapeutic Substance into Peripheral Vein, Percutaneous Approach (ICD-10-PCS; principal; 2017-12-15)
DX: D50.9 Iron deficiency anemia, unspecified (principal)
CPT/HCPCS: 96365; J1756

== ENCOUNTER 2018-01-14 07:33 | Day surgery (SDC) | payer OTHER, MEDICARE ==
[2018-01-14] MEDS ORDERED: IRON SUCROSE INJECTION 200 MG in SODIUM CHLORIDE 100 ML IVPB ONE (13:00)
[2018-01-14 19:18] VITALS: BP 170/70; PULSE 72; TEMP 97.7
== END 2018-01-14 16:52 | disposition home or self-care (01) ==
LOC: JONCNONCHE 07:33 → J7W 15:52 → JONCNONCHE 16:52
PROVIDERS: ATTEND Internal Medicine Hematology & Oncology
PROC: 3E033GC Introduction of Other Therapeutic Substance into Peripheral Vein, Percutaneous Approach (ICD-10-PCS; principal; 2018-01-14)
DX: D50.9 Iron deficiency anemia, unspecified (principal)
CPT/HCPCS: 96365; J1756

== ENCOUNTER 2018-01-21 07:39 | Day surgery (SDC) | payer OTHER, MEDICARE ==
[2018-01-21] MEDS ORDERED: IRON SUCROSE INJECTION 200 MG in SODIUM CHLORIDE 100 ML IVPB ONE (12:00)
[2018-01-21 17:14] VITALS: PULSE 84; TEMP 97.8
[2018-01-21 17:17] VITALS: BP 143/72
== END 2018-01-21 12:30 | disposition home or self-care (01) ==
LOC: JONCNONCHE 07:39 → JONCCHEMO 07:39 → J7W 11:02 → JONCNONCHE 12:30
PROVIDERS: ATTEND Internal Medicine Hematology & Oncology
PROC: 3E033GC Introduction of Other Therapeutic Substance into Peripheral Vein, Percutaneous Approach (ICD-10-PCS; principal; 2018-01-21)
DX: D50.9 Iron deficiency anemia, unspecified (principal)
CPT/HCPCS: 96365; J1756

== ENCOUNTER 2018-02-04 07:46 | Day surgery (SDC) | payer OTHER, MEDICARE ==
[2018-02-04] MEDS ORDERED: IRON SUCROSE INJECTION 200 MG in SODIUM CHLORIDE 100 ML IVPB ONE (10:00)
[2018-02-04 11:11] VITALS: BP 131/64; PULSE 86
[2018-02-04 11:17] VITALS: TEMP 97.7
== END 2018-02-04 10:20 | disposition home or self-care (01) ==
LOC: JONCNONCHE 07:46 → J7W 09:18 → JONCNONCHE 10:20
PROVIDERS: ATTEND Internal Medicine Hematology & Oncology
PROC: 3E033GC Introduction of Other Therapeutic Substance into Peripheral Vein, Percutaneous Approach (ICD-10-PCS; principal; 2018-02-04)
DX: D50.9 Iron deficiency anemia, unspecified (principal)
CPT/HCPCS: 96365; J1756

== ENCOUNTER 2018-02-11 09:03 | Day surgery (SDC) | payer OTHER, MEDICARE ==
[2018-02-11 10:37] LABS: BASO % 0.7 % (0-2.0); EOS % 0.9 % (0-4.5); HEMATOCRIT 25.4 % (32.4-45.2); HEMOGLOBIN 7.1 GM/dL (10.7-15.3); LYMPH % 23.1 % (8-40); MCH 20.5 pg (25.7-33.7); MEAN CELL VOLUME 73.1 fl (80-96); MEAN PLT VOLUME 7.3 fl (7.5-11.1); MONO % 7.1 % (3.8-10.2); NEUT % 68.2 % (42.8-82.8); PLATELET COUNT 402 K/MM3 (134-434); RBC 3.47 M/mm3 (3.60-5.2)
[2018-02-11 14:52] LABS: ANISOCYTOSIS 3+; MACROCYTOSIS 0; OVALOCYTE 2+; PLATELET ESTIMATE NORMAL; TEAR DROP CELLS 1+
[2018-02-11 17:00] VITALS: BP 159/81; PULSE 101; TEMP 98.3
--- NOTE | 2018-02-11 17:59 | HP ---
[facility] - Chief Complaint Chief Complaint: PAtient seen and examined. Herre for elective blood transfusion. 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 Cardiovascular: Yes: HTN Pulmonary: Yes: COPD, Other Gastrointestinal: Yes: Ulcerative Colitis, Other Hepatobiliary: Yes: Other Heme/Onc: Yes: Anemia, Cancer Musculoskeletal: Yes: Chronic low back pain, Osteoarthritis - Current Medications Current Medications: Home Medications Medication Instructions Recorded Nifedipine [Procardia Xl] 60 mg PO DAILY 08/13/11 Cholecalciferol (Vitamin D3) 1,000 unit PO DAILY 12/09/17 [Vitamin D3] Iron Sucrose Complex [Venofer] 100 mg IV WEEKLY 12/09/17 Omeprazole 20 mg PO DAILY 12/09/17 Sumatriptan Succinate [Imitrex] 100 mg PO PRN 12/09/17 Mesalamine [Lialda] 1.2 gm PO DAILY #180 tablet. 12/10/17 Prednisone 10 mg PO DAILY #120 tablet 12/10/17 predniSONE [Deltasone -] 40 mg PO DAILY #30 tablet 12/10/17 Satellite Physical Exam - Physical Examination Vital Signs: Vital Signs Period Temp Pulse Resp BP Sys/Small Pulse Ox Last 24 Hr 97.6 F-98.3 F 98-101 17-20 115-159/50-81 General Appearance: Alert & Oriented x3 Lung: Clear to auscultation Heart: Regular rate & rhythm, Normal S1, Normal S2 Abdomen: Soft, No tenderness Extremities: No edema Neurological: Intact Satellite Impression/Plan - Impression/Plan Impression: 77 y/o patient with COPD, RLU lung nodule/mass, Monoclonal B lymphocytosis, ulcerative colitis, iron deficiency anemia. For blood transfusion today for Hgb 7
== END 2018-02-11 19:51 | disposition home or self-care (01) ==
LOC: JONCBLOOD 09:03 → J8W 09:03 → JONCBLOOD 19:51
PROVIDERS: ATTEND Internal Medicine Hematology & Oncology
PROC: 30233N1 Transfusion of Nonautologous Red Blood Cells into Peripheral Vein, Percutaneous Approach (ICD-10-PCS; principal; 2018-02-11)
DX: D50.9 Iron deficiency anemia, unspecified (principal)
CPT/HCPCS: 36415; 36430; 85025; 86850; 86900; 86901; 86922; P9038; P9058

== ENCOUNTER 2018-02-16 07:52 | Day surgery (SDC) | payer OTHER, MEDICARE ==
[2018-02-16] MEDS ORDERED: IRON SUCROSE INJECTION 200 MG in SODIUM CHLORIDE 100 ML IVPB ONE (10:00)
[2018-02-16 17:06] VITALS: BP 156/82; PULSE 86
[2018-02-16 17:07] VITALS: TEMP 97.6
== END 2018-02-16 17:08 | disposition home or self-care (01) ==
LOC: JONCNONCHE 07:52 → J7W 16:05 → JONCNONCHE 17:08
PROVIDERS: ATTEND Internal Medicine Hematology & Oncology
PROC: 3E033GC Introduction of Other Therapeutic Substance into Peripheral Vein, Percutaneous Approach (ICD-10-PCS; principal; 2018-02-16)
DX: D50.9 Iron deficiency anemia, unspecified (principal)
CPT/HCPCS: 96365; J1756

== ENCOUNTER 2018-02-23 07:27 | Day surgery (SDC) | payer OTHER, MEDICARE ==
[2018-02-23] MEDS ORDERED: IRON SUCROSE INJECTION 200 MG in SODIUM CHLORIDE 100 ML IVPB ONE (08:00)
[2018-02-23 09:58] VITALS: TEMP 97.5
[2018-02-23 10:46] VITALS: BP 148/74; PULSE 80
== END 2018-02-23 10:46 | disposition home or self-care (01) ==
LOC: JONCCHEMO 07:27 → J7W 10:15 → JONCCHEMO 10:46
PROVIDERS: ATTEND Internal Medicine Hematology & Oncology
PROC: 3E033GC Introduction of Other Therapeutic Substance into Peripheral Vein, Percutaneous Approach (ICD-10-PCS; principal; 2018-02-23)
DX: D50.9 Iron deficiency anemia, unspecified (principal)
CPT/HCPCS: 96365; J1756

== ENCOUNTER 2018-03-02 07:23 | Day surgery (SDC) | payer OTHER, MEDICARE ==
[2018-03-02] MEDS: IRON SUCROSE INJECTION 200 MG in SODIUM CHLORIDE 100 ML IVPB ONE ×2 (09:57→14:11)
[2018-03-02 14:34] VITALS: TEMP 97.8
[2018-03-02 14:36] VITALS: BP 161/63; PULSE 74
== END 2018-03-02 10:45 | disposition home or self-care (01) ==
LOC: JONCCHEMO 07:23 → J7W 09:55 → JONCCHEMO 10:45
PROVIDERS: ATTEND Internal Medicine Hematology & Oncology
PROC: 3E033GC Introduction of Other Therapeutic Substance into Peripheral Vein, Percutaneous Approach (ICD-10-PCS; principal; 2018-03-02)
DX: D50.9 Iron deficiency anemia, unspecified (principal)
CPT/HCPCS: 96365; J1756

== ENCOUNTER 2018-03-09 07:18 | Day surgery (SDC) | payer OTHER, MEDICARE ==
[2018-03-09] MEDS ORDERED: IRON SUCROSE INJECTION 200 MG in SODIUM CHLORIDE 100 ML IVPB ONE (08:00)
[2018-03-09 10:21] LABS: BASO % 0.8 % (0-2.0); EOS % 0.1 % (0-4.5); HEMATOCRIT 30.8 % (32.4-45.2); HEMOGLOBIN 9.3 GM/dL (10.7-15.3); MCH 23.1 pg (25.7-33.7); MCHC 30.1 g/dl (32.0-36.0); MEAN CELL VOLUME 76.8 fl (80-96); MEAN PLT VOLUME 7.3 fl (7.5-11.1); NEUT % 93.1 % (42.8-82.8); PLATELET COUNT 426 K/MM3 (134-434); RBC 4.01 M/mm3 (3.60-5.2); RDW 27.7 % (11.6-15.6); WHITE BLOOD COUNT 10.4 K/mm3 (4.0-10.0)
[2018-03-09 10:43] LABS: ALBUMIN 3.7 g/dl (3.4-5.0); BILIRUBIN,DIRECT 0.2 mg/dL (0.0-0.2); BILIRUBIN,TOTAL 0.6 mg/dL (0.2-1); TOT PROT 6.6 g/dl (6.4-8.2)
[2018-03-09 10:46] LABS: ALBUMIN 3.7 g/dl (3.4-5.0); ALK PHOS 59 U/L (45-117); ANION GAP 8 MMOL/L (8-16); BILIRUBIN,TOTAL 0.6 mg/dL (0.2-1); BLOOD UREA NITROGEN 27 mg/dL (7-18); CALCIUM 8.5 mg/dL (8.5-10.1); CHLORIDE 108 mmol/L (98-107); CO2 26 mmol/L (21-32); CREATININE 0.6 mg/dL (0.55-1.3); GLUCOSE,RANDOM 110 mg/dL (74-106); POTASSIUM 4.1 mmol/L (3.5-5.1); SGOT/AST 11 U/L (15-37); SGPT/ALT 19 U/L (13-61); SODIUM 141 mmol/L (136-145); TOT PROT 6.8 g/dl (6.4-8.2)
[2018-03-09 13:42] LABS: ANISOCYTOSIS 1+; MACROCYTOSIS 0; PLATELET ESTIMATE NORMAL
[2018-03-09 15:00] VITALS: BP 150/78; PULSE 20; TEMP 97.7
== END 2018-03-09 10:35 | disposition home or self-care (01) ==
LOC: JONCCHEMO 07:18 → J7W 10:08 → JONCCHEMO 10:35
PROVIDERS: ATTEND Internal Medicine Hematology & Oncology
PROC: 3E033GC Introduction of Other Therapeutic Substance into Peripheral Vein, Percutaneous Approach (ICD-10-PCS; principal; 2018-03-09)
DX: D50.9 Iron deficiency anemia, unspecified (principal)
CPT/HCPCS: 36415; 80053; 80076; 82607; 82728; 85025; 85651; 86140; 96365; J1756

== ENCOUNTER 2018-04-12 05:41 | Day surgery (SDC) | payer OTHER, MEDICARE ==
[2018-04-12] MEDS ORDERED: IRON SUCROSE INJECTION 200 MG in SODIUM CHLORIDE 100 ML IVPB ONE (10:00)
[2018-04-12 14:53] VITALS: TEMP 98.1
[2018-04-12 14:54] VITALS: BP 126/47; PULSE 49
== END 2018-04-12 11:10 | disposition home or self-care (01) ==
LOC: JONCNONCHE 05:41 → J7W 09:58 → JONCNONCHE 11:10
PROVIDERS: ATTEND Internal Medicine Hematology & Oncology
PROC: 3E033GC Introduction of Other Therapeutic Substance into Peripheral Vein, Percutaneous Approach (ICD-10-PCS; principal; 2018-04-12)
DX: E61.1 Iron deficiency (principal); K90.9 Intestinal malabsorption, unspecified
CPT/HCPCS: 96365; J1756

== ENCOUNTER 2018-05-30 10:01 | Day surgery (SDC) | payer OTHER, MEDICARE | END 2018-05-30 22:15 | disposition home or self-care (01) | LOC: JONCBLOOD 22:15 → JONCNONCHE 10:01 → J7W 10:16 ==

== ENCOUNTER 2018-06-08 07:16 | Day surgery (SDC) | payer OTHER, MEDICARE ==
[2018-06-08] MEDS ORDERED: IRON SUCROSE INJECTION 200 MG in SODIUM CHLORIDE 100 ML IVPB ONE (10:00)
[2018-06-08 14:38] VITALS: TEMP 98.3
[2018-06-08 14:41] VITALS: BP 124/67; PULSE 89
== END 2018-06-08 10:45 | disposition home or self-care (01) ==
LOC: JONCCHEMO 07:16 → JONCNONCHE 07:16 → J7W 09:32 → JONCNONCHE 10:45
PROVIDERS: ATTEND Internal Medicine Hematology & Oncology
DX: D50.9 Iron deficiency anemia, unspecified (principal)
CPT/HCPCS: 96365; J1756

== ENCOUNTER → 2018-06-15 | Day surgery (SDC) | payer OTHER, MEDICARE | LOC: JONCNONCHE 09:09 ==

== ENCOUNTER 2018-06-22 07:10 | Day surgery (SDC) | payer OTHER, MEDICARE ==
[2018-06-22] MEDS ORDERED: IRON SUCROSE INJECTION 200 MG in SODIUM CHLORIDE 100 ML IVPB ONE (09:00)
[2018-06-22 12:49] VITALS: BP 157/77; PULSE 77; TEMP 98
== END 2018-06-22 10:10 | disposition home or self-care (01) ==
LOC: JONCNONCHE 07:10 → J7W 09:23 → JONCNONCHE 10:10
PROVIDERS: ATTEND Internal Medicine Hematology & Oncology
PROC: 3E033GC Introduction of Other Therapeutic Substance into Peripheral Vein, Percutaneous Approach (ICD-10-PCS; principal; 2018-06-22)
DX: D50.9 Iron deficiency anemia, unspecified (principal)
CPT/HCPCS: 96365; J1756

== ENCOUNTER 2018-06-29 09:44 | Day surgery (SDC) | payer OTHER, MEDICARE ==
[2018-06-29] MEDS ORDERED: IRON SUCROSE INJECTION 200 MG in SODIUM CHLORIDE 100 ML IVPB ONE (11:00)
[2018-06-29 15:59] VITALS: BP 137/63; PULSE 78; TEMP 97.6
== END 2018-06-29 12:00 | disposition home or self-care (01) ==
LOC: JONCNONCHE 09:44 → J7W 09:51 → JONCNONCHE 12:00
PROVIDERS: ATTEND Internal Medicine Hematology & Oncology
PROC: 3E033GC Introduction of Other Therapeutic Substance into Peripheral Vein, Percutaneous Approach (ICD-10-PCS; principal; 2018-06-29)
DX: D50.9 Iron deficiency anemia, unspecified (principal)
CPT/HCPCS: 96365; J1756

== ENCOUNTER 2018-08-11 07:28 | Day surgery (SDC) | payer OTHER, MEDICARE ==
[2018-08-11 09:35] LABS: BASO % 1.1 % (0-2.0); EOS % 0.9 % (0-4.5); LYMPH % 18.3 % (8-40); MCHC 28.2 g/dl (32.0-36.0); MEAN CELL VOLUME 62.5 fl (80-96); MEAN PLT VOLUME 8.6 fl (7.5-11.1); MONO % 3.4 % (3.8-10.2); NEUT % 76.3 % (42.8-82.8); PLATELET COUNT 346 K/MM3 (134-434); RBC 2.73 M/mm3 (3.60-5.2); RDW 25.7 % (11.6-15.6)
[2018-08-11 09:40] LABS: MCH 17.6 pg (25.7-33.7)
[2018-08-11 09:50] LABS: HEMOGLOBIN 4.8 GM/dL (10.7-15.3)
[2018-08-11 10:04] LABS: ALBUMIN 3.5 g/dl (3.4-5.0); ALK PHOS 53 U/L (45-117); ANION GAP 3 MMOL/L (8-16); BILIRUBIN,TOTAL 0.3 mg/dL (0.2-1); BLOOD UREA NITROGEN 23 mg/dL (7-18); CALCIUM 8.7 mg/dL (8.5-10.1); CHLORIDE 114 mmol/L (98-107); CO2 28 mmol/L (21-32); CREATININE 0.6 mg/dL (0.55-1.3); GLUCOSE,RANDOM 111 mg/dL (74-106); POTASSIUM 4.4 mmol/L (3.5-5.1); SGOT/AST 6 U/L (15-37); SGPT/ALT 14 U/L (13-61); SODIUM 144 mmol/L (136-145); TOT PROT 5.9 g/dl (6.4-8.2)
[2018-08-11 10:33] LABS: ERYTHROCYTE SEDIMENTATION RATE 69 mm/hr (0-30)
[2018-08-11 11:57] LABS: ANISOCYTOSIS 3+; OVALOCYTE 1+; PLATELET ESTIMATE NORMAL; TEAR DROP CELLS 1+
[2018-08-11 13:08] VITALS: BP 117/70; PULSE 85; TEMP 98
[2018-08-11] MEDS ORDERED: SUMAtriptan SUCCINATE 25 MG TABLET PO ONE ×2 (13:24→14:00)
[2018-08-11] MEDS ORDERED: FUROSEMIDE 40 MG/4 ML INJECTABLE VIAL IVPUSH ONE (20:00)
--- NOTE | 2018-08-11 22:22 | HP ---
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 Cardiovascular: Yes: HTN Pulmonary: Yes: COPD, Other Gastrointestinal: Yes: Ulcerative Colitis, Other Hepatobiliary: Yes: Other Heme/Onc: Yes: Anemia, Cancer Musculoskeletal: Yes: Chronic low back pain, Osteoarthritis - Current Medications Current Medications: Home Medications Medication Instructions Recorded Nifedipine [Procardia Xl] 60 mg PO DAILY 08/13/11 Cholecalciferol (Vitamin D3) 1,000 unit PO DAILY 12/09/17 [Vitamin D3] Iron Sucrose Complex [Venofer] 100 mg IV WEEKLY 12/09/17 Omeprazole 20 mg PO DAILY 12/09/17 Sumatriptan Succinate [Imitrex] 100 mg PO PRN 12/09/17 Mesalamine [Lialda] 1.2 gm PO DAILY #180 tablet. 12/10/17 Prednisone 10 mg PO DAILY #120 tablet 12/10/17 predniSONE [Deltasone -] 40 mg PO DAILY #30 tablet 12/10/17 Satellite Physical Exam - Physical Examination Vital Signs: Vital Signs Period Temp Pulse Resp BP Sys/Small Pulse Ox Last 24 Hr 97.8 F-98 F 76-85 18-20 117-130/70-70
== END 2018-08-11 21:02 | disposition home or self-care (01) ==
LOC: JONCBLOOD 07:28 → J7W 08:35 → JONCBLOOD 21:02
PROVIDERS: ATTEND Internal Medicine Hematology & Oncology
PROC: 30233N1 Transfusion of Nonautologous Red Blood Cells into Peripheral Vein, Percutaneous Approach (ICD-10-PCS; principal; 2018-08-11)
DX: D64.9 Anemia, unspecified (principal); I10 Essential (primary) hypertension; J44.9 Chronic obstructive pulmonary disease, unspecified; K51.90 Ulcerative colitis, unspecified, without complications; M19.90 Unspecified osteoarthritis, unspecified site
CPT/HCPCS: 36415; 36430; 36511; 80053; 85025; 85651; 86140; 86850; 86900; 86901; 86922; P9038; P9058

== ENCOUNTER 2018-08-15 15:10 | Day surgery (SDC) | payer OTHER, MEDICARE ==
[2018-08-15] MEDS ORDERED: methylPREDNISolone NA SUCC 125 MG/2 ML VIAL IVPUSH ONE (16:30)
[2018-08-15] MEDS ORDERED: FERRIC CARBOXYMALTOSE 750 MG in SODIUM CHLORIDE 250 ML IVPB ONE (16:30)
[2018-08-15 17:10] VITALS: TEMP 97.7
[2018-08-15 17:57] VITALS: BP 157/86; PULSE 87
== END 2018-08-15 17:57 | disposition home or self-care (01) ==
LOC: JONCNONCHE 15:10 → J7W 15:26 → JONCNONCHE 17:57
PROVIDERS: ATTEND Internal Medicine Hematology & Oncology
PROC: 3E033GC Introduction of Other Therapeutic Substance into Peripheral Vein, Percutaneous Approach (ICD-10-PCS; principal; 2018-08-15)
DX: D50.9 Iron deficiency anemia, unspecified (principal)
CPT/HCPCS: 36415; 82607; 82728; 83540; 83550; 85025; 86850; 86900; 86901; 96365; J1439

== ENCOUNTER 2018-08-22 10:07 | Day surgery (SDC) | payer OTHER, MEDICARE ==
[2018-08-22] MEDS ORDERED: FERRIC CARBOXYMALTOSE 750 MG in SODIUM CHLORIDE 250 ML IVPB ONE (11:00)
[2018-08-22] MEDS ORDERED: methylPREDNISolone NA SUCC 125 MG/2 ML VIAL IVPB ONE (12:30)
[2018-08-22 15:43] VITALS: TEMP 98.5
[2018-08-22 15:45] VITALS: BP 151/77; PULSE 72
== END 2018-08-22 13:30 | disposition home or self-care (01) ==
LOC: JONCNONCHE 10:07 → J7W 10:41 → JONCNONCHE 13:30
PROVIDERS: ATTEND Internal Medicine Hematology & Oncology
PROC: 3E033GC Introduction of Other Therapeutic Substance into Peripheral Vein, Percutaneous Approach (ICD-10-PCS; principal; 2018-08-22)
DX: D50.9 Iron deficiency anemia, unspecified (principal)
CPT/HCPCS: 96365; J1439

== ENCOUNTER 2018-12-21 08:26 | Day surgery (SDC) | payer OTHER, MEDICARE ==
[2018-12-21 09:03] LABS: HEMATOCRIT 18.9 % (32.4-45.2); MCHC 26.9 g/dl (32.0-36.0); MEAN CELL VOLUME 57.9 fl (80-96); MEAN PLT VOLUME 8.4 fl (7.5-11.1); PLATELET COUNT 413 K/MM3 (134-434); RBC 3.27 M/mm3 (3.60-5.2); RDW 24.3 % (11.6-15.6); WHITE BLOOD COUNT 3.1 K/mm3 (4.0-10.0)
[2018-12-21 09:10] LABS: HEMOGLOBIN 5.1 GM/dL (10.7-15.3); MCH 15.6 pg (25.7-33.7)
[2018-12-21 19:03] VITALS: BP 131/67; PULSE 90; TEMP 98.5
[2018-12-21 20:00] LABS: HEMOGLOBIN 7.2 GM/dL (10.7-15.3); MCHC 28.7 g/dl (32.0-36.0); MEAN CELL VOLUME 65.8 fl (80-96); MEAN PLT VOLUME 8.9 fl (7.5-11.1); PLATELET COUNT 370 K/MM3 (134-434); RDW 32.6 % (11.6-15.6)
[2018-12-21 20:03] LABS: MCH 18.9 pg (25.7-33.7)
== END 2018-12-21 20:03 | disposition home or self-care (01) ==
LOC: JONCBLOOD 08:26 → J7W 08:28 → JONCBLOOD 20:03
PROVIDERS: ATTEND Internal Medicine Hematology & Oncology
PROC: 30233N1 Transfusion of Nonautologous Red Blood Cells into Peripheral Vein, Percutaneous Approach (ICD-10-PCS; principal; 2018-12-21)
DX: D64.9 Anemia, unspecified (principal)
CPT/HCPCS: 36415; 36430; 36511; 85027; 86850; 86900; 86901; 86922; P9038; P9058

== ENCOUNTER 2018-12-28 08:30 | Day surgery (SDC) | payer OTHER, MEDICARE ==
[2018-12-28] MEDS ORDERED: DEXAMETHASONE SODIUM PHOSPHATE 8 MG in SODIUM CHLORIDE 50 ML IVPB ONE (10:00)
[2018-12-28] MEDS ORDERED: FERRIC CARBOXYMALTOSE 750 MG in SODIUM CHLORIDE 250 ML IVPB ONE (10:30)
[2018-12-28 15:27] VITALS: BP 157/82; PULSE 86; TEMP 97.4
== END 2018-12-28 12:00 | disposition home or self-care (01) ==
LOC: JONCNONCHE 08:30 → J7W 09:39 → JONCNONCHE 12:00
PROVIDERS: ATTEND Internal Medicine Hematology & Oncology
PROC: 3E033GC Introduction of Other Therapeutic Substance into Peripheral Vein, Percutaneous Approach (ICD-10-PCS; principal; 2018-12-28)
DX: D50.9 Iron deficiency anemia, unspecified (principal)
CPT/HCPCS: 96365; J1439

== ENCOUNTER 2019-01-04 05:43 | Day surgery (SDC) | payer OTHER, MEDICARE ==
[2019-01-04] MEDS ORDERED: DEXAMETHASONE SODIUM PHOSPHATE 8 MG in SODIUM CHLORIDE 50 ML IVPB ONE (10:00)
[2019-01-04] MEDS ORDERED: FERRIC CARBOXYMALTOSE 750 MG in SODIUM CHLORIDE 250 ML IVPB ONE (10:30)
[2019-01-04 17:33] VITALS: PULSE 88; TEMP 98
[2019-01-04 17:34] VITALS: BP 148/82
== END 2019-01-04 12:35 | disposition home or self-care (01) ==
LOC: JONCCHEMO 05:43 → J7W 09:38 → JONCCHEMO 12:35
PROVIDERS: ATTEND Internal Medicine Hematology & Oncology
PROC: 3E033GC Introduction of Other Therapeutic Substance into Peripheral Vein, Percutaneous Approach (ICD-10-PCS; principal; 2019-01-04)
DX: D50.9 Iron deficiency anemia, unspecified (principal)
CPT/HCPCS: 96365; J1439

== ENCOUNTER 2019-04-12 10:04 | Day surgery (SDC) | payer OTHER, MEDICARE ==
[2019-04-12 11:54] LABS: HEMATOCRIT 23.5 % (32.4-45.2); MCHC 28.4 g/dl (32.0-36.0); MEAN CELL VOLUME 61.2 fl (80-96); MEAN PLT VOLUME 8.8 fl (7.5-11.1); PLATELET COUNT 587 K/MM3 (134-434); RBC 3.83 M/mm3 (3.60-5.2); RDW 24.6 % (11.6-15.6); WHITE BLOOD COUNT 7.9 K/mm3 (4.0-10.0)
[2019-04-12 12:02] LABS: MCH 17.4 pg (25.7-33.7)
[2019-04-12 12:03] LABS: HEMOGLOBIN 6.7 GM/dL (10.7-15.3)
[2019-04-12 12:53] LABS: ALBUMIN 3.6 g/dl (3.4-5.0); BILIRUBIN,TOTAL 0.7 mg/dL (0.2-1); BLOOD UREA NITROGEN 23.7 mg/dL (7-18); CALCIUM 8.6 mg/dL (8.5-10.1); CREATININE 0.8 mg/dL (0.55-1.3); POTASSIUM 3.7 mmol/L (3.5-5.1); TOT PROT 6.3 g/dl (6.4-8.2)
[2019-04-12 12:56] LABS: MACROCYTOSIS 0
[2019-04-12 13:50] LABS: ANISOCYTOSIS 1+; PLATELET ESTIMATE INCREASED
[2019-04-12 18:32] VITALS: BP 145/61; PULSE 95; TEMP 98.4
== END 2019-04-12 17:30 | disposition home or self-care (01) ==
LOC: JONCBLOOD 10:04 → J7W 10:05 → JONCBLOOD 17:30
PROVIDERS: ATTEND Internal Medicine Hematology & Oncology
PROC: 30233N1 Transfusion of Nonautologous Red Blood Cells into Peripheral Vein, Percutaneous Approach (ICD-10-PCS; principal; 2019-04-12)
DX: D50.9 Iron deficiency anemia, unspecified (principal)
CPT/HCPCS: 36415; 36430; 80053; 83735; 85025; 86850; 86900; 86901; 86922; P9058

== ENCOUNTER 2019-05-22 07:15 | Day surgery (SDC) | payer OTHER, MEDICARE ==
[2019-05-22 10:23] LABS: BASO % 1.4 % (0-2.0); EOS % 1.5 % (0-4.5); HEMATOCRIT 22.3 % (32.4-45.2); LYMPH % 29.4 % (8-40); MCHC 27.6 g/dl (32.0-36.0); MEAN CELL VOLUME 59.6 fl (80-96); MEAN PLT VOLUME 8.7 fl (7.5-11.1); MONO % 6.4 % (3.8-10.2); NEUT % 61.3 % (42.8-82.8); PLATELET COUNT 435 K/MM3 (134-434); RBC 3.75 M/mm3 (3.60-5.2); RDW 23.5 % (11.6-15.6); WHITE BLOOD COUNT 6.1 K/mm3 (4.0-10.0)
[2019-05-22 10:51] LABS: MCH 16.4 pg (25.7-33.7)
[2019-05-22 10:52] LABS: HEMOGLOBIN 6.2 GM/dL (10.7-15.3)
[2019-05-22] MEDS ORDERED: FERRIC CARBOXYMALTOSE 750 MG in SODIUM CHLORIDE 250 ML IVPB ONE (11:30)
--- NOTE | 2019-05-22 14:28 | PN ---
Progress Note (short form) - Note Progress Note: Discussed with patient and daughter -- life threatening complications of severe anemia. Recommended that she get blood transfusion today. They declined. They understand the potential for devastating complications but are adamant about leaving home without getting transfused today They would like to come back on 05/23 for blood transfusion Dosed injectafer today
[2019-05-22 15:42] VITALS: TEMP 97.9
[2019-05-22 15:43] VITALS: BP 129/67; PULSE 79
== END 2019-05-22 12:25 | disposition home or self-care (01) ==
LOC: JONCNONCHE 07:15 → J7W 08:45 → JONCNONCHE 12:25
PROVIDERS: ATTEND Internal Medicine Hematology & Oncology
PROC: 3E033GC Introduction of Other Therapeutic Substance into Peripheral Vein, Percutaneous Approach (ICD-10-PCS; principal; 2019-05-22)
DX: D64.9 Anemia, unspecified (principal)
CPT/HCPCS: 36415; 36430; 36511; 85025; 86850; 86900; 86901; 86922; 96365; J1439; P9038; P9058

== ENCOUNTER 2019-05-23 09:00 | Day surgery (SDC) | payer OTHER, MEDICARE ==
[2019-05-23 15:40] VITALS: BP 124/48; PULSE 79; TEMP 97.3
== END 2019-05-23 13:15 | disposition home or self-care (01) ==
LOC: JONCBLOOD 09:00 → J7W 09:01 → JONCBLOOD 13:15
PROVIDERS: ATTEND Internal Medicine Hematology & Oncology
PROC: 30233N1 Transfusion of Nonautologous Red Blood Cells into Peripheral Vein, Percutaneous Approach (ICD-10-PCS; principal; 2019-05-23)
DX: D64.9 Anemia, unspecified (principal)

== ENCOUNTER 2019-05-29 06:28 | Day surgery (SDC) | payer OTHER, MEDICARE ==
[2019-05-29] MEDS ORDERED: FERRIC CARBOXYMALTOSE 750 MG in SODIUM CHLORIDE 250 ML IVPB ONE (09:30)
[2019-05-29 14:32] VITALS: BP 148/60; PULSE 89; TEMP 97.7
== END 2019-05-29 11:30 | disposition home or self-care (01) ==
LOC: JONCNONCHE 06:28 → J7W 08:49 → JONCNONCHE 11:30
PROVIDERS: ATTEND Internal Medicine Hematology & Oncology
PROC: 3E033GC Introduction of Other Therapeutic Substance into Peripheral Vein, Percutaneous Approach (ICD-10-PCS; principal; 2019-05-29)
DX: D50.9 Iron deficiency anemia, unspecified (principal)
CPT/HCPCS: 96365; J1439

== ENCOUNTER 2020-04-03 06:13 | Day surgery (SDC) | payer OTHER, MEDICARE ==
[2020-04-03] MEDS ORDERED: FERRIC CARBOXYMALTOSE 750 MG in SODIUM CHLORIDE 250 ML IVPB ONE (10:00)
[2020-04-03 13:41] VITALS: TEMP 97.8
[2020-04-03 13:43] VITALS: BP 146/67; PULSE 96
== END 2020-04-03 10:45 | disposition home or self-care (01) ==
LOC: JONCNONCHE 06:13
PROVIDERS: ATTEND Internal Medicine Hematology & Oncology
PROC: 3E033GC Introduction of Other Therapeutic Substance into Peripheral Vein, Percutaneous Approach (ICD-10-PCS; principal; 2020-04-03)
DX: D50.9 Iron deficiency anemia, unspecified (principal)
CPT/HCPCS: 87045; 87046; 96365; J1439

== ENCOUNTER 2020-04-25 08:14 | Day surgery (SDC) | payer OTHER, MEDICARE ==
[2020-04-25] MEDS ORDERED: FERRIC CARBOXYMALTOSE 750 MG in SODIUM CHLORIDE 250 ML IVPB ONE (10:00)
[2020-04-25 11:35] VITALS: TEMP 97.5
[2020-04-25 11:46] VITALS: BP 156/66; PULSE 74
== END 2020-04-25 10:50 | disposition home or self-care (01) ==
LOC: JONCNONCHE 08:14
PROVIDERS: ATTEND Internal Medicine Hematology & Oncology
PROC: 3E033GC Introduction of Other Therapeutic Substance into Peripheral Vein, Percutaneous Approach (ICD-10-PCS; principal; 2020-04-25)
DX: D50.9 Iron deficiency anemia, unspecified (principal)
CPT/HCPCS: 96365; J1439

== ENCOUNTER 2020-10-02 06:54 | Day surgery (SDC) | payer OTHER, MEDICARE ==
[2020-10-02 10:39] LABS: BASO % 1.2 % (0-2.0); EOS % 2.6 % (0-4.5); HEMATOCRIT 37.3 % (32.4-45.2); HEMOGLOBIN 12.1 GM/dL (10.7-15.3); LYMPH % 18.4 % (8-40); MCH 27.8 pg (25.7-33.7); MCHC 32.5 g/dl (32.0-36.0); MEAN CELL VOLUME 85.4 fl (80-96); MEAN PLT VOLUME 7.9 fl (7.5-11.1); MONO % 9.1 % (3.8-10.2); NEUT % 68.7 % (42.8-82.8); PLATELET COUNT 372 K/MM3 (134-434); RBC 4.36 M/mm3 (3.60-5.2); RDW 15.3 % (11.6-15.6); WHITE BLOOD COUNT 4.6 K/mm3 (4.0-10.0)
[2020-10-02] MEDS ORDERED: FERRIC CARBOXYMALTOSE 750 MG in SODIUM CHLORIDE 250 ML IVPB ONE (10:45)
[2020-10-02 10:58] LABS: ALBUMIN 3.4 g/dl (3.4-5.0); CALCIUM 9.3 mg/dL (8.5-10.1)
[2020-10-02 10:59] LABS: BLOOD UREA NITROGEN 16.3 mg/dL (7-18)
[2020-10-02 11:01] LABS: CREATININE 0.4 mg/dL (0.55-1.3)
[2020-10-02 11:02] LABS: BILIRUBIN,TOTAL 0.6 mg/dL (0.2-1); TOT PROT 7.1 g/dl (6.4-8.2)
[2020-10-02 17:45] VITALS: BP 169/85; PULSE 71; TEMP 97.8
== END 2020-10-02 12:25 | disposition home or self-care (01) ==
LOC: JONCNONCHE 06:54
PROVIDERS: ATTEND Internal Medicine Hematology & Oncology
PROC: 3E033GC Introduction of Other Therapeutic Substance into Peripheral Vein, Percutaneous Approach (ICD-10-PCS; principal; 2020-10-02)
DX: D50.9 Iron deficiency anemia, unspecified (principal)
CPT/HCPCS: 36415; 80053; 82728; 83540; 83550; 85025; 96365; J1439

== ENCOUNTER 2020-10-09 07:50 | Day surgery (SDC) | payer OTHER, MEDICARE ==
[2020-10-09] MEDS ORDERED: FERRIC CARBOXYMALTOSE 750 MG in SODIUM CHLORIDE 250 ML IVPB ONE (10:30)
[2020-10-09 16:44] VITALS: BP 167/75; PULSE 80; TEMP 97.7
== END 2020-10-09 11:40 | disposition home or self-care (01) ==
LOC: JONCNONCHE 07:50
PROVIDERS: ATTEND Internal Medicine Hematology & Oncology
PROC: 3E033GC Introduction of Other Therapeutic Substance into Peripheral Vein, Percutaneous Approach (ICD-10-PCS; principal; 2020-10-09)
DX: D50.9 Iron deficiency anemia, unspecified (principal)
CPT/HCPCS: 96365; J1439

== ENCOUNTER 2021-05-10 04:01 | Inpatient (IN) | payer OTHER, MEDICARE ==
[2021-05-10] MEDS ORDERED: DEXAMETHASONE SOD PHOSPHATE 4 MG/1 ML VIAL IVPUSH ONE (04:10)
[2021-05-10 04:28] VITALS: BMI 20.3
[2021-05-10] MEDS ORDERED: DEXAMETHASONE SOD PHOSPHATE 10 MG/1 ML VIAL ONE (04:35)
[2021-05-10 04:43] LABS: HEMATOCRIT 40.5 % (32.4-45.2); HEMOGLOBIN 12.9 GM/dL (10.7-15.3); MCH 27.1 pg (25.7-33.7); MCHC 31.9 g/dl (32.0-36.0); MEAN CELL VOLUME 84.9 fl (80-96); MEAN PLT VOLUME 6.8 fl (7.5-11.1); PLATELET COUNT 361 10^3/uL (134-434); RBC 4.77 M/mm3 (3.60-5.2); RDW 18.2 % (11.6-15.6); WHITE BLOOD COUNT 3.8 K/mm3 (4.0-10.0)
[2021-05-10] MEDS ORDERED: ACETAMINOPHEN 1000 MG/100 ML BAG IVPB ONE (04:43)
[2021-05-10] MEDS ORDERED: SODIUM CHLORIDE 0.9% 500 ML INFUS.BAG IV ONE (04:43)
[2021-05-10] MEDS ORDERED: ACETAMINOPHEN INJECTION 100 ML IVPB ONE (04:44)
[2021-05-10 05:08] LABS: EPI CELLS 9 /uL (0-25.1); HYALINE CASTS 1 /uL (0-3.1); PH,URINE 5.5 (5.0-8.0); URINE APPEARANCE CLOUDY; URINE BACTERIA >9,000 /uL (0-1359); URINE BILIRUBIN NEGATIVE (NEGATIVE); URINE COLOR YELLOW; URINE GLUCOSE (UA) NEGATIVE (NEGATIVE); URINE KETONE TRACE (NEGATIVE); URINE LEUK ESTERASE 2+ (NEGATIVE); URINE NITRITE NEGATIVE (NEGATIVE); URINE PROTEIN 2+ (NEGATIVE); URINE RBC 30 /uL (0-23.9); URINE UROBILINOGEN 0.2 mg/dL (0.2-1.0); URINE WBC 1047 /uL (0-25.8)
[2021-05-10 05:42] LABS: ARTERIAL BLD GAS O2 SATURATION 98.3 % (95-98); ARTERIAL BLOOD GAS BASE EXCESS -8.2 mmol/L (-2-2); ARTERIAL BLOOD GAS PO2 128.2 mmHg (80-100); ARTERIAL BLOOD GAS pH 7.308 (7.350-7.450)
[2021-05-10] MEDS ORDERED: CEFTRIAXONE 1 GM in DEXTROSE 5%-WATER - 100 ML IVPB ONE (05:52)
[2021-05-10 05:55] LABS: CHLORIDE 109 mmol/L (98-107); SODIUM 137 mmol/L (136-145)
[2021-05-10 05:57] LABS: ANION GAP 9 MMOL/L (8-16); CALCIUM 8.9 mg/dL (8.5-10.1); CO2 19 mmol/L (21-32); GLUCOSE,RANDOM 103 mg/dL (74-106)
[2021-05-10 05:58] LABS: ALBUMIN 2.8 g/dl (3.4-5.0)
[2021-05-10] MEDS ORDERED: CEFTRIAXONE 1 GM/50 ML BAG ONE (05:59)
[2021-05-10 06:00] LABS: BILIRUBIN,DIRECT 0.1 mg/dL (0.0-0.2); CREATININE 1.5 mg/dL (0.55-1.3); SGPT/ALT 13 U/L (13-61)
[2021-05-10 06:01] LABS: SGOT/AST 13 U/L (15-37)
[2021-05-10 06:02] LABS: BILIRUBIN,TOTAL 0.2 mg/dL (0.2-1); TOT PROT 6.7 g/dl (6.4-8.2)
[2021-05-10 06:03] LABS: ALK PHOS 86 U/L (45-117)
[2021-05-10 06:07] LABS: INR 1.03 (0.83-1.09); LDH 154 U/L (84-246); PROTHROMBIN TIME (PATIENT) 11.9 SEC (9.7-13.0)
[2021-05-10 06:09] LABS: ACTIVATED PTT 36.8 SECONDS (25.2-36.5)
[2021-05-10] MEDS ORDERED: LACTATED RINGERS SOLUTION 1000 ML INFUS.BAG IV ONE (06:27)
[2021-05-10 10:49] LABS: ANISOCYTOSIS 2+; MACROCYTOSIS 0; OVALOCYTE 1+; PLATELET ESTIMATE NORMAL; TEAR DROP CELLS 1+; TOXIC GRANULATION 2+
[2021-05-10] MEDS ORDERED: PIPERACILLIN/TAZOB 2.25 GM 2.25 GM in DEXTROSE 5%-WATER - 50 ML IVPB SCH ×2 (11:45→18:00)
[2021-05-10] MEDS ORDERED: PIPERACILLIN/TAZOB 2.25 GM 2.25 GM/50 ML BAG IVPB ONE (14:11)
[2021-05-10] MEDS ORDERED: REMDESIVIR 200 MG in SODIUM CHLORIDE 250 ML IVPB ONE ×2 (15:30→16:00)
[2021-05-10] MEDS ORDERED: ACETAMINOPHEN 325 MG TABLET (FP) PO PRN (18:23)
[2021-05-10] MEDS ORDERED: DEXTROSE 5%-WATER - 50 ML IVPB ONE (22:22)
[2021-05-10] MEDS ORDERED: PIPERACILLIN/TAZOBACTAM 2.25 GM VIAL IVPB ONE (22:23)
[2021-05-10] MEDS: PIPERACILLIN/TAZOB 2.25 GM 2.25 GM in DEXTROSE 5%-WATER - 50 ML IVPB SCH (22:26)
[2021-05-10] MEDS: HEPARIN NA (PORCINE) 5,000 UNITS/ML 1ML VIAL SQ SCH (22:26)
[2021-05-11] MEDS ORDERED: DEXTROSE 5%-WATER - 50 ML IVPB ONE ×4 (04:24→22:05)
[2021-05-11] MEDS ORDERED: PIPERACILLIN/TAZOBACTAM 2.25 GM VIAL IVPB ONE ×4 (04:24→22:05)
[2021-05-11] MEDS: PIPERACILLIN/TAZOB 2.25 GM 2.25 GM in DEXTROSE 5%-WATER - 50 ML IVPB SCH ×4 (04:29→22:10)
[2021-05-11] MEDS: PANTOPRAZOLE 20 MG TABLET PO SCH (10:12)
[2021-05-11] MEDS: DEXAMETHASONE SOD PHOSPHATE 10 MG/1 ML VIAL IVPUSH SCH (10:12)
[2021-05-11] MEDS: HEPARIN NA (PORCINE) 5,000 UNITS/ML 1ML VIAL SQ SCH ×2 (10:12→22:10)
[2021-05-11 11:32] LABS: BASO % 0.1 % (0-2.0); HEMOGLOBIN 12.5 GM/dL (10.7-15.3); LYMPH % 6.5 % (8-40); MCH 26.8 pg (25.7-33.7); MCHC 32.1 g/dl (32.0-36.0); MEAN CELL VOLUME 83.4 fl (80-96); MONO % 8.2 % (3.8-10.2); NEUT % 85.2 % (42.8-82.8); PLATELET COUNT 456 10^3/uL (134-434); RBC 4.68 M/mm3 (3.60-5.2); RDW 18.4 % (11.6-15.6); WHITE BLOOD COUNT 7.9 K/mm3 (4.0-10.0)
[2021-05-11 12:13] LABS: CALCIUM 8.8 mg/dL (8.5-10.1)
[2021-05-11 12:14] LABS: ALBUMIN 2.5 g/dl (3.4-5.0); BLOOD UREA NITROGEN 48.2 mg/dL (7-18)
[2021-05-11 12:16] LABS: CREATININE 0.7 mg/dL (0.55-1.3)
[2021-05-11 12:18] LABS: BILIRUBIN,TOTAL 0.2 mg/dL (0.2-1); TOT PROT 6.4 g/dl (6.4-8.2)
[2021-05-11 14:58] LABS: ALLENS TEST POSITIVE; ARTERIAL BLD GAS O2 SATURATION 95.6 % (95-98); ARTERIAL BLOOD GAS BASE EXCESS -5.9 mmol/L (-2-2); ARTERIAL BLOOD GAS pH 7.331 (7.350-7.450)
[2021-05-11 14:59] LABS: VENT MODE 40 L
[2021-05-11] MEDS: REMDESIVIR 100 MG in SODIUM CHLORIDE 250 ML IVPB SCH (16:07)
[2021-05-12] MEDS: PIPERACILLIN/TAZOB 2.25 GM 2.25 GM in DEXTROSE 5%-WATER - 50 ML IVPB SCH ×2 (03:13→10:04)
[2021-05-12] MEDS ORDERED: DEXTROSE 5%-WATER - 50 ML IVPB ONE ×2 (09:34→13:42)
[2021-05-12] MEDS ORDERED: PIPERACILLIN/TAZOBACTAM 2.25 GM VIAL IVPB ONE (09:34)
[2021-05-12] MEDS: PANTOPRAZOLE 20 MG TABLET PO SCH (10:04)
[2021-05-12] MEDS: HEPARIN NA (PORCINE) 5,000 UNITS/ML 1ML VIAL SQ SCH ×2 (10:04→22:09)
[2021-05-12] MEDS: DEXAMETHASONE SOD PHOSPHATE 10 MG/1 ML VIAL IVPUSH SCH (10:04)
[2021-05-12] MEDS ORDERED: ALPRAZolam 0.25 MG TABLET PO PRN (12:46)
[2021-05-12] MEDS ORDERED: cefTRIAXone SODIUM 1 GM VIAL ONE (13:42)
[2021-05-12] MEDS: CEFTRIAXONE 1 GM in DEXTROSE 5%-WATER - 50 ML IVPB SCH (13:58)
[2021-05-12] MEDS: REMDESIVIR 100 MG in SODIUM CHLORIDE 250 ML IVPB SCH (15:44)
[2021-05-13] MEDS ORDERED: DEXTROSE 5%-WATER - 50 ML IVPB ONE (09:41)
[2021-05-13] MEDS ORDERED: cefTRIAXone SODIUM 1 GM VIAL ONE (09:41)
[2021-05-13] MEDS: HEPARIN NA (PORCINE) 5,000 UNITS/ML 1ML VIAL SQ SCH ×2 (09:54→22:25)
[2021-05-13] MEDS: PANTOPRAZOLE 20 MG TABLET PO SCH (09:54)
[2021-05-13] MEDS: DEXAMETHASONE SOD PHOSPHATE 10 MG/1 ML VIAL IVPUSH SCH (09:54)
[2021-05-13] MEDS: CEFTRIAXONE 1 GM in DEXTROSE 5%-WATER - 50 ML IVPB SCH (09:54)
[2021-05-13] MEDS: REMDESIVIR 100 MG in SODIUM CHLORIDE 250 ML IVPB SCH (15:24)
[2021-05-14] MEDS ORDERED: cefTRIAXone SODIUM 1 GM VIAL ONE (09:00)
[2021-05-14] MEDS ORDERED: DEXTROSE 5%-WATER - 50 ML IVPB ONE (09:00)
[2021-05-14] MEDS: DEXAMETHASONE SOD PHOSPHATE 10 MG/1 ML VIAL IVPUSH SCH (09:10)
[2021-05-14] MEDS: HEPARIN NA (PORCINE) 5,000 UNITS/ML 1ML VIAL SQ SCH (09:10)
[2021-05-14] MEDS: PANTOPRAZOLE 20 MG TABLET PO SCH (09:10)
[2021-05-14] MEDS: CEFTRIAXONE 1 GM in DEXTROSE 5%-WATER - 50 ML IVPB SCH (09:10)
[2021-05-14 11:54] LABS: HEMATOCRIT 41.1 % (32.4-45.2); HEMOGLOBIN 12.8 GM/dL (10.7-15.3); MCH 26.2 pg (25.7-33.7); MCHC 31.2 g/dl (32.0-36.0); MEAN CELL VOLUME 84.1 fl (80-96); MEAN PLT VOLUME 7.5 fl (7.5-11.1); PLATELET COUNT 520 10^3/uL (134-434); RBC 4.88 M/mm3 (3.60-5.2); RDW 18.6 % (11.6-15.6); WHITE BLOOD COUNT 14.5 K/mm3 (4.0-10.0)
[2021-05-14 12:22] LABS: CALCIUM 8.9 mg/dL (8.5-10.1)
[2021-05-14 12:23] LABS: ALBUMIN 2.6 g/dl (3.4-5.0); BLOOD UREA NITROGEN 34.4 mg/dL (7-18)
[2021-05-14 12:26] LABS: CREATININE 0.5 mg/dL (0.55-1.3)
[2021-05-14 12:28] LABS: BILIRUBIN,TOTAL 0.3 mg/dL (0.2-1); TOT PROT 6.7 g/dl (6.4-8.2)
[2021-05-14 12:51] LABS: ERYTHROCYTE SEDIMENTATION RATE 8 mm/hr (0-30)
[2021-05-14 13:23] LABS: ANISOCYTOSIS 0; HELMET CELLS 0; HOWELL-JOLLY BODIES 0; MACROCYTOSIS 0; OVALOCYTE 0; PLATELET ESTIMATE INCREASED; ROULEAU 0; SICKELED CELLS 0; TARGET CELLS 0; TEAR DROP CELLS 0; TOXIC GRANULATION 0
[2021-05-14 13:26] VITALS: TEMP 97
[2021-05-14 14:06] VITALS: PULSE 103
[2021-05-14 14:46] VITALS: BP 143/87
== END 2021-05-14 16:51 | disposition home or self-care (01) | DRG 177 ==
LOC: JER 04:01 → JERBED 05:42 → J6WEST-2 21:09
PROVIDERS: ADMIT Internal Medicine; ATTEND Internal Medicine
PROC: XW033E5 Introduction of Remdesivir Anti-infective into Peripheral Vein, Percutaneous Approach, New Technology Group 5 (ICD-10-PCS; principal; 2021-05-10)
DX: U07.1 COVID-19 (principal); J96.01 Acute respiratory failure with hypoxia; J12.82 Pneumonia due to coronavirus disease 2019; K51.90 Ulcerative colitis, unspecified, without complications; N39.0 Urinary tract infection, site not specified; N17.9 Acute kidney failure, unspecified; R64 Cachexia; I10 Essential (primary) hypertension; J44.9 Chronic obstructive pulmonary disease, unspecified; F03.90 Unspecified dementia, unspecified severity, without behavioral disturbance, psychotic disturbance, mood disturbance, and anxiety; D50.9 Iron deficiency anemia, unspecified; B96.20 Unspecified Escherichia coli [E. coli] as the cause of diseases classified elsewhere; Z68.20 Body mass index [BMI] 20.0-20.9, adult; E86.0 Dehydration
CPT/HCPCS: 36415; 36600; 71045-TC-FY; 80053; 81003; 82248; 82550; 82728; 82803; 83605; 83615; 84484; 85025; 85610; 85651; 85730; 86140; 87040; 87086; 87186; 87804; 93005; 93010; 94761; 97116-GP; 97162-GP; 99285-25; C9399; C9803; J0131; J1100; J1644; U0003; U0005

== ENCOUNTER 2021-06-23 00:37 | Inpatient (IN) | payer OTHER, MEDICARE ==
[2021-06-23] MEDS ORDERED: LORazepam 2 MG TABLET PO ONE (01:09)
[2021-06-23] MEDS ORDERED: LORazepam 1 MG TABLET ONE (01:11)
[2021-06-23 01:14] LABS: HEMATOCRIT 38.7 % (32.4-45.2); HEMOGLOBIN 12.1 GM/dL (10.7-15.3); MCH 28.3 pg (25.7-33.7); MCHC 31.4 g/dl (32.0-36.0); MEAN CELL VOLUME 90.1 fl (80-96); MEAN PLT VOLUME 7.2 fl (7.5-11.1); PLATELET COUNT 476 10^3/uL (134-434); RDW 21.7 % (11.6-15.6); WHITE BLOOD COUNT 8.2 K/mm3 (4.0-10.0)
[2021-06-23] MEDS ORDERED: methylPREDNISolone NA SUCC 125 MG/2 ML VIAL IVPUSH ONE (01:18)
[2021-06-23] MEDS ORDERED: methylPREDNISolone NA SUCC 125 MG/2 ML VIAL ONE ×2 (01:22→05:27)
[2021-06-23 01:32] LABS: CHLORIDE 105 mmol/L (98-107); SODIUM 139 mmol/L (136-145)
[2021-06-23 01:34] LABS: CALCIUM 8.5 mg/dL (8.5-10.1)
[2021-06-23 01:35] LABS: ALBUMIN 3.4 g/dl (3.4-5.0); ANION GAP 4 MMOL/L (8-16); BLOOD UREA NITROGEN 20.6 mg/dL (7-18); CO2 30 mmol/L (21-32); GLUCOSE,RANDOM 311 mg/dL (74-106)
[2021-06-23 01:37] LABS: CREATININE 0.7 mg/dL (0.55-1.3)
[2021-06-23 01:38] LABS: SGOT/AST 176 U/L (15-37)
[2021-06-23 01:39] LABS: SGPT/ALT 99 U/L (13-61); TOT PROT 7.1 g/dl (6.4-8.2)
[2021-06-23 01:40] LABS: ALK PHOS 168 U/L (45-117); BILIRUBIN,TOTAL 0.3 mg/dL (0.2-1)
[2021-06-23 01:41] LABS: INR 1.03 (0.83-1.09); PROTHROMBIN TIME (PATIENT) 11.8 SEC (9.7-13.0)
[2021-06-23 01:44] LABS: ACTIVATED PTT 31.4 SECONDS (25.2-36.5)
[2021-06-23] MEDS ORDERED: VANCOMYCIN 1 GM PREMIX - 1 GM/200 ML BAG IVPB ONE (02:27)
[2021-06-23] MEDS ORDERED: PIPERACILLIN/TAZOB 4.5 GM 4.5 GM in DEXTROSE 5%-WATER 100 ML IVPB ONE (02:27)
[2021-06-23 02:50] LABS: ARTERIAL BLD GAS O2 SATURATION 93.7 % (95-98); ARTERIAL BLOOD GAS BASE EXCESS -6.1 mmol/L (-2-2); ARTERIAL BLOOD GAS PO2 89.4 mmHg (80-100)
[2021-06-23 02:54] LABS: ALLENS TEST POSITIVE
[2021-06-23 02:55] LABS: VENT MODE S/T; VENT RATE 16
[2021-06-23 02:56] LABS: ARTERIAL BLOOD GAS pH 7.138 (7.350-7.450)
[2021-06-23] MEDS ORDERED: PIPERACILLIN/TAZOB 4.5 GM 4.5 GM/100 ML BAG IVPB ONE (03:01)
[2021-06-23 03:08] LABS: ANISOCYTOSIS 3+; MACROCYTOSIS 1+; ROULEAU 2+
[2021-06-23] MEDS ORDERED: DEXTROSE 5% IVPB ONE (03:49)
[2021-06-23] MEDS ORDERED: VANCOMYCIN IVPB ONE (03:49)
[2021-06-23] MEDS ORDERED: WATER IVPB ONE (03:49)
[2021-06-23] MEDS ORDERED: LORazepam 0.5 MG TABLET ONE (04:18)
[2021-06-23] MEDS ORDERED: LORazepam 1 MG TABLET PO ONE (04:31)
[2021-06-23] MEDS ORDERED: LORazepam 0.5 MG TABLET PO STA (05:24)
[2021-06-23] MEDS ORDERED: IPRATROPIUM BR 0.02% 0.5 MG/2.5 ML VIAL.NEB. NEB ONE ×2 (05:32→09:33)
[2021-06-23] MEDS ORDERED: ALBUTEROL SO4 0.083% IH SOL 2.5 MG/3 ML VIAL.NEB. NEB ONE ×2 (05:32→09:33)
[2021-06-23] MEDS: ALBUTEROL SO4 2.5/IPRATROPIUM 0.5 INH SOL 3 ML VIAL.NEB. NEB SCH ×2 (05:48→06:37)
[2021-06-23] MEDS: methylPREDNISolone NA SUCC 40 MG/1 ML VIAL IVPB SCH ×3 (05:48→18:54)
[2021-06-23 06:06] LABS: BILIRUBIN,DIRECT 0.2 mg/dL (0.0-0.2)
[2021-06-23] MEDS ORDERED: ALBUTEROL SO4 0.083% IH SOL 2.5 MG/3 ML VIAL.NEB. NEB SCH (08:00)
[2021-06-23] MEDS: IPRATROPIUM BR 0.02% 0.5 MG/2.5 ML VIAL.NEB. NEB SCH ×4 (08:25→20:10)
[2021-06-23] MEDS ORDERED: LORazepam 2 MG/ML SDV VIAL IM ONE (09:37)
[2021-06-23] MEDS ORDERED: LEVALBUTEROL HCL 0.31 MG/3 ML VIAL.NEB IH PRN ×2 (09:38→23:03)
[2021-06-23] MEDS ORDERED: ENOXAPARIN NA (PORCINE) 40 MG/0.4 ML DISP.SYRIN SQ ONE (09:44)
[2021-06-23] MEDS ORDERED: methylPREDNISolone NA SUCC 40 MG/1 ML VIAL ONE (09:44)
[2021-06-23] MEDS ORDERED: PIPERACILLIN/TAZOB 3.375 GM 3.375 GM/50 ML BAG IVPB ONE (09:45)
[2021-06-23] MEDS ORDERED: VANCOMYCIN 1 GM in D5W (PRE-DOCKED) 1,000 MG/250 ML IVPB SCH (10:00)
[2021-06-23] MEDS ORDERED: ENOXAPARIN NA (PORCINE) 30 MG/0.3 ML DISP.SYRIN SQ SCH (10:00)
[2021-06-23] MEDS ORDERED: ENOXAPARIN NA (PORCINE) 40 MG/0.4 ML DISP.SYRIN SQ SCH (10:00)
[2021-06-23] MEDS ORDERED: PIPERACILLIN/TAZOB 3.375 GM 3.375 GM in DEXTROSE 5%-WATER - 50 ML IVPB SCH (10:00)
[2021-06-23] MEDS ORDERED: NIFEdipine E.R 60 MG TABLET PO SCH (10:00)
[2021-06-23 10:25] LABS: ARTERIAL BLD GAS O2 SATURATION 92.6 % (95-98); ARTERIAL BLOOD GAS BASE EXCESS -5.5 mmol/L (-2-2); ARTERIAL BLOOD GAS PO2 75.5 mmHg (80-100); ARTERIAL BLOOD GAS pH 7.241 (7.350-7.450)
[2021-06-23 10:26] LABS: ALLENS TEST POSITIVE; VENT MODE IPAP12
[2021-06-23] MEDS ORDERED: FUROSEMIDE 40 MG/4 ML INJECTABLE VIAL IVPUSH ONE (15:57)
[2021-06-23] MEDS ORDERED: RAPID SEQUENCE INTUBATION KIT NR ONE (16:11)
[2021-06-23 18:19] LABS: ARTERIAL BLD GAS O2 SATURATION 92.6 % (95-98); ARTERIAL BLOOD GAS PO2 79.1 mmHg (80-100)
[2021-06-23 18:21] LABS: ALLENS TEST POSITIVE
[2021-06-23 18:23] LABS: VENT MODE S/T; VENT RATE 22
[2021-06-23] MEDS: DEXMEDETOMIDINE IN 0.9 % NACL 400 MCG/100 ML VIAL IVPB SCH (18:47)
[2021-06-23] MEDS ORDERED: PIPERACILLIN/TAZOBACTAM 3.375 GM VIAL IVPB ONE (18:52)
[2021-06-23] MEDS ORDERED: DEXTROSE 5%-WATER - 50 ML IVPB ONE (18:52)
[2021-06-23] MEDS: PIPERACILLIN/TAZOB 3.375 GM 3.375 GM in DEXTROSE 5%-WATER - 50 ML IVPB SCH (18:54)
[2021-06-23] MEDS: CHLORHEXIDINE GLUCONATE 4% CLEANSER FOR DECOLONIZATION TP SCH (21:20)
[2021-06-23] MEDS: MUPIROCIN 2% TOPICAL OINTMENT FOR DECOLONIZATION NS SCH (21:20)
[2021-06-24] MEDS ORDERED: PIPERACILLIN/TAZOBACTAM 3.375 GM VIAL IVPB ONE ×3 (01:59→17:09)
[2021-06-24] MEDS ORDERED: DEXTROSE 5%-WATER - 50 ML IVPB ONE ×3 (01:59→17:09)
[2021-06-24] MEDS: PIPERACILLIN/TAZOB 3.375 GM 3.375 GM in DEXTROSE 5%-WATER - 50 ML IVPB SCH ×3 (02:24→17:20)
[2021-06-24] MEDS: methylPREDNISolone NA SUCC 40 MG/1 ML VIAL IVPB SCH ×3 (02:24→17:21)
[2021-06-24] MEDS ORDERED: VANCOMYCIN 1,000 MG in DEXTROSE 5%-WATER - 250 ML IVPB ONE (04:00)
[2021-06-24] MEDS: DEXMEDETOMIDINE IN 0.9 % NACL 400 MCG/100 ML VIAL IVPB SCH ×2 (05:11→18:30)
[2021-06-24 06:30] LABS: ARTERIAL BLD GAS O2 SATURATION 86.5 % (95-98); ARTERIAL BLOOD GAS BASE EXCESS -3.9 mmol/L (-2-2); ARTERIAL BLOOD GAS PO2 55.5 mmHg (80-100)
[2021-06-24 06:39] LABS: VENT MODE S/T; VENT RATE 22
[2021-06-24 07:21] LABS: HEMATOCRIT 37.6 % (32.4-45.2); HEMOGLOBIN 12.1 GM/dL (10.7-15.3); MCH 28.6 pg (25.7-33.7); MCHC 32.3 g/dl (32.0-36.0); MEAN CELL VOLUME 88.7 fl (80-96); MEAN PLT VOLUME 7.8 fl (7.5-11.1); PLATELET COUNT 293 10^3/uL (134-434); RBC 4.24 M/mm3 (3.60-5.2); RDW 20.4 % (11.6-15.6); WHITE BLOOD COUNT 5.1 K/mm3 (4.0-10.0)
[2021-06-24 07:43] LABS: ALBUMIN 2.9 g/dl (3.4-5.0); BLOOD UREA NITROGEN 29.8 mg/dL (7-18); CALCIUM 8.8 mg/dL (8.5-10.1); MAGNESIUM 2.1 mg/dL (1.8-2.4)
[2021-06-24 07:46] LABS: CREATININE 0.7 mg/dL (0.55-1.3); PHOSPHOROUS 3.9 mg/dL (2.5-4.9)
[2021-06-24 07:48] LABS: BILIRUBIN,TOTAL 0.4 mg/dL (0.2-1)
[2021-06-24] MEDS ORDERED: IPRATROPIUM BR 0.02% 0.5 MG/2.5 ML VIAL.NEB. NEB SCH (08:00)
[2021-06-24] MEDS: MUPIROCIN 2% TOPICAL OINTMENT FOR DECOLONIZATION NS SCH ×2 (09:30→22:13)
[2021-06-24] MEDS ORDERED: LEVALBUTEROL HCL 0.31 MG/3 ML VIAL.NEB IH PRN ×3 (09:47→09:52)
[2021-06-24] MEDS: ENOXAPARIN NA (PORCINE) 40 MG/0.4 ML DISP.SYRIN SQ SCH (10:07)
[2021-06-24 10:11] LABS: ANISOCYTOSIS 3+; MACROCYTOSIS 0
[2021-06-24] MEDS: NIFEdipine E.R 60 MG TABLET PO SCH (10:16)
[2021-06-24] MEDS: PANTOPRAZOLE SODIUM 40 MG VIAL IVPUSH SCH (10:17)
[2021-06-24 10:24] LABS: PLATELET ESTIMATE ADEQUATE
[2021-06-24 10:30] LABS: NEUT % 4.6 % (42.8-82.8)
[2021-06-24] MEDS ORDERED: ALPRAZolam 0.25 MG TABLET PO PRN (11:06)
[2021-06-24] MEDS: ALBUTEROL SO4 2.5/IPRATROPIUM 0.5 INH SOL 3 ML VIAL.NEB. NEB SCH ×3 (11:50→19:42)
[2021-06-24 16:09] VITALS: BMI 21.7
[2021-06-24] MEDS: CHLORHEXIDINE GLUCONATE 4% CLEANSER FOR DECOLONIZATION TP SCH (22:13)
[2021-06-25] MEDS ORDERED: PIPERACILLIN/TAZOBACTAM 3.375 GM VIAL IVPB ONE ×4 (01:07→16:59)
[2021-06-25] MEDS ORDERED: DEXTROSE 5%-WATER - 50 ML IVPB ONE ×4 (01:08→16:59)
[2021-06-25] MEDS: PIPERACILLIN/TAZOB 3.375 GM 3.375 GM in DEXTROSE 5%-WATER - 50 ML IVPB SCH ×3 (01:13→17:07)
[2021-06-25] MEDS: methylPREDNISolone NA SUCC 40 MG/1 ML VIAL IVPB SCH ×3 (01:15→17:07)
[2021-06-25 07:31] LABS: BASO % 0.2 % (0-2.0); HEMATOCRIT 35.7 % (32.4-45.2); HEMOGLOBIN 11.8 GM/dL (10.7-15.3); LYMPH % 4.1 % (8-40); MCH 28.7 pg (25.7-33.7); MEAN CELL VOLUME 87.1 fl (80-96); MEAN PLT VOLUME 7.5 fl (7.5-11.1); MONO % 7.4 % (3.8-10.2); NEUT % 88.3 % (42.8-82.8); PLATELET COUNT 349 10^3/uL (134-434); RDW 21.1 % (11.6-15.6); WHITE BLOOD COUNT 9.8 K/mm3 (4.0-10.0)
[2021-06-25] MEDS: ALBUTEROL SO4 2.5/IPRATROPIUM 0.5 INH SOL 3 ML VIAL.NEB. NEB SCH ×4 (07:35→19:30)
[2021-06-25 07:58] LABS: BLOOD UREA NITROGEN 34.1 mg/dL (7-18); CALCIUM 8.6 mg/dL (8.5-10.1)
[2021-06-25 08:01] LABS: CREATININE 0.7 mg/dL (0.55-1.3)
[2021-06-25 08:03] LABS: BILIRUBIN,TOTAL 0.5 mg/dL (0.2-1); TOT PROT 5.8 g/dl (6.4-8.2)
[2021-06-25] MEDS: ENOXAPARIN NA (PORCINE) 40 MG/0.4 ML DISP.SYRIN SQ SCH (10:44)
[2021-06-25] MEDS: PANTOPRAZOLE SODIUM 40 MG VIAL IVPUSH SCH (10:44)
[2021-06-25] MEDS: NIFEdipine E.R 60 MG TABLET PO SCH (10:45)
[2021-06-25] MEDS: MUPIROCIN 2% TOPICAL OINTMENT FOR DECOLONIZATION NS SCH ×2 (10:45→21:17)
[2021-06-25] MEDS ORDERED: ALPRAZolam 0.25 MG TABLET PO PRN (20:26)
[2021-06-25] MEDS: CHLORHEXIDINE GLUCONATE 4% CLEANSER FOR DECOLONIZATION TP SCH (21:17)
[2021-06-25] MEDS: DEXMEDETOMIDINE IN 0.9 % NACL 400 MCG/100 ML VIAL IVPB SCH (21:17)
[2021-06-26] MEDS ORDERED: PIPERACILLIN/TAZOBACTAM 3.375 GM VIAL IVPB ONE ×4 (01:36→22:02)
[2021-06-26] MEDS ORDERED: DEXTROSE 5%-WATER - 50 ML IVPB ONE ×4 (01:36→22:02)
[2021-06-26] MEDS: methylPREDNISolone NA SUCC 40 MG/1 ML VIAL IVPB SCH ×3 (01:37→18:33)
[2021-06-26] MEDS: PIPERACILLIN/TAZOB 3.375 GM 3.375 GM in DEXTROSE 5%-WATER - 50 ML IVPB SCH ×3 (01:37→18:33)
[2021-06-26] MEDS: ALBUTEROL SO4 2.5/IPRATROPIUM 0.5 INH SOL 3 ML VIAL.NEB. NEB SCH ×4 (08:00→20:31)
[2021-06-26] MEDS: ENOXAPARIN NA (PORCINE) 40 MG/0.4 ML DISP.SYRIN SQ SCH (09:57)
[2021-06-26] MEDS: NIFEdipine E.R 60 MG TABLET PO SCH (09:57)
[2021-06-26] MEDS: PANTOPRAZOLE SODIUM 40 MG VIAL IVPUSH SCH (09:57)
[2021-06-26] MEDS: MUPIROCIN 2% TOPICAL OINTMENT FOR DECOLONIZATION NS SCH ×2 (09:57→21:00)
[2021-06-26] MEDS ORDERED: LOPERAMIDE HCL 2 MG CAPSULE PO ONE (10:45)
[2021-06-26] MEDS: LACTOBACILLUS ACIDOPHILUS 1 TABLET PO SCH (12:59)
[2021-06-26] MEDS: ALPRAZolam 0.25 MG TABLET PO PRN ×2 (12:59→22:18)
[2021-06-26] MEDS: DEXMEDETOMIDINE IN 0.9 % NACL 400 MCG/100 ML VIAL IVPB SCH (20:59)
[2021-06-26] MEDS: CHLORHEXIDINE GLUCONATE 4% CLEANSER FOR DECOLONIZATION TP SCH (21:00)
[2021-06-27] MEDS: PIPERACILLIN/TAZOB 3.375 GM 3.375 GM in DEXTROSE 5%-WATER - 50 ML IVPB SCH ×2 (01:30→10:39)
[2021-06-27] MEDS: methylPREDNISolone NA SUCC 40 MG/1 ML VIAL IVPB SCH ×3 (01:30→18:06)
[2021-06-27 07:32] LABS: CALCIUM 8.8 mg/dL (8.5-10.1)
[2021-06-27 07:33] LABS: ALBUMIN 3.1 g/dl (3.4-5.0); BLOOD UREA NITROGEN 30.1 mg/dL (7-18)
[2021-06-27 07:36] LABS: CREATININE 0.7 mg/dL (0.55-1.3)
[2021-06-27 07:37] LABS: TOT PROT 6.3 g/dl (6.4-8.2)
[2021-06-27 07:38] LABS: BILIRUBIN,TOTAL 0.6 mg/dL (0.2-1)
[2021-06-27 07:58] LABS: HEMATOCRIT 43.5 % (32.4-45.2); HEMOGLOBIN 13.7 GM/dL (10.7-15.3); MCH 27.6 pg (25.7-33.7); MCHC 31.4 g/dl (32.0-36.0); MEAN CELL VOLUME 87.7 fl (80-96); MEAN PLT VOLUME 8.1 fl (7.5-11.1); PLATELET COUNT 400 10^3/uL (134-434); RBC 4.96 M/mm3 (3.60-5.2); RDW 20.3 % (11.6-15.6); WHITE BLOOD COUNT 9.4 K/mm3 (4.0-10.0)
[2021-06-27] MEDS: ALBUTEROL SO4 2.5/IPRATROPIUM 0.5 INH SOL 3 ML VIAL.NEB. NEB SCH ×4 (08:10→19:55)
[2021-06-27 09:20] LABS: ANISOCYTOSIS 0; MACROCYTOSIS 0
[2021-06-27] MEDS ORDERED: PIPERACILLIN/TAZOBACTAM 3.375 GM VIAL IVPB ONE (10:28)
[2021-06-27] MEDS ORDERED: DEXTROSE 5%-WATER - 50 ML IVPB ONE (10:29)
[2021-06-27] MEDS: ENOXAPARIN NA (PORCINE) 40 MG/0.4 ML DISP.SYRIN SQ SCH (10:38)
[2021-06-27] MEDS: LACTOBACILLUS ACIDOPHILUS 1 TABLET PO SCH (10:39)
[2021-06-27] MEDS: NIFEdipine E.R 60 MG TABLET PO SCH (10:39)
[2021-06-27] MEDS: PANTOPRAZOLE SODIUM 40 MG VIAL IVPUSH SCH (10:39)
[2021-06-27] MEDS: ALPRAZolam 0.25 MG TABLET PO PRN ×2 (10:39→22:56)
[2021-06-27] MEDS: MUPIROCIN 2% TOPICAL OINTMENT FOR DECOLONIZATION NS SCH ×2 (10:40→22:51)
[2021-06-27] MEDS ORDERED: MELATONIN 5 MG TABLETS PO PRN (12:33)
[2021-06-27] MEDS: NYSTATIN POWDER 100,000 UNITS/GM - 15 GM TOPICAL POWDER TP SCH ×2 (13:15→22:52)
[2021-06-27] MEDS: ASPIRIN 81 MG CHEWABLE TABLETS PO SCH (18:14)
[2021-06-27] MEDS: DEXMEDETOMIDINE IN 0.9 % NACL 400 MCG/100 ML VIAL IVPB SCH (19:15)
[2021-06-27] MEDS: CHLORHEXIDINE GLUCONATE 4% CLEANSER FOR DECOLONIZATION TP SCH (22:52)
[2021-06-28] MEDS: methylPREDNISolone NA SUCC 40 MG/1 ML VIAL IVPB SCH ×2 (02:24→09:31)
[2021-06-28 06:52] LABS: BASO % 0.3 % (0-2.0); HEMATOCRIT 40.6 % (32.4-45.2); HEMOGLOBIN 13.1 GM/dL (10.7-15.3); LYMPH % 5.2 % (8-40); MCH 28.3 pg (25.7-33.7); MCHC 32.4 g/dl (32.0-36.0); MEAN CELL VOLUME 87.4 fl (80-96); MEAN PLT VOLUME 7.6 fl (7.5-11.1); MONO % 7.2 % (3.8-10.2); NEUT % 87.3 % (42.8-82.8); PLATELET COUNT 332 10^3/uL (134-434); RBC 4.64 M/mm3 (3.60-5.2); RDW 19.9 % (11.6-15.6); WHITE BLOOD COUNT 10.1 K/mm3 (4.0-10.0)
[2021-06-28 07:12] LABS: ALBUMIN 2.9 g/dl (3.4-5.0); BLOOD UREA NITROGEN 33.4 mg/dL (7-18)
[2021-06-28 07:15] LABS: CREATININE 0.6 mg/dL (0.55-1.3)
[2021-06-28 07:17] LABS: BILIRUBIN,TOTAL 0.5 mg/dL (0.2-1); TOT PROT 5.8 g/dl (6.4-8.2)
[2021-06-28] MEDS: ALBUTEROL SO4 2.5/IPRATROPIUM 0.5 INH SOL 3 ML VIAL.NEB. NEB SCH ×4 (09:00→20:36)
[2021-06-28] MEDS: ASPIRIN 81 MG CHEWABLE TABLETS PO SCH (09:30)
[2021-06-28] MEDS: MUPIROCIN 2% TOPICAL OINTMENT FOR DECOLONIZATION NS SCH (09:30)
[2021-06-28] MEDS: LACTOBACILLUS ACIDOPHILUS 1 TABLET PO SCH (09:30)
[2021-06-28] MEDS: PANTOPRAZOLE SODIUM 40 MG VIAL IVPUSH SCH (09:31)
[2021-06-28] MEDS: NYSTATIN POWDER 100,000 UNITS/GM - 15 GM TOPICAL POWDER TP SCH ×2 (09:31→22:27)
[2021-06-28] MEDS: ENOXAPARIN NA (PORCINE) 40 MG/0.4 ML DISP.SYRIN SQ SCH (09:31)
[2021-06-28] MEDS ORDERED: LOSARTAN POTASSIUM 25 MG TABLET PO SCH (10:00)
[2021-06-28] MEDS ORDERED: LEVALBUTEROL HCL 0.31 MG/3 ML VIAL.NEB IH PRN (14:27)
[2021-06-28] MEDS ORDERED: ALPRAZolam 0.25 MG TABLET PO PRN (14:27)
[2021-06-28] MEDS ORDERED: MELATONIN 5 MG TABLETS PO PRN (14:27)
[2021-06-28] MEDS: methylPREDNISolone NA SUCC 40 MG/1 ML VIAL IVPUSH SCH (17:54)
[2021-06-28] MEDS ORDERED: methylPREDNISolone NA SUCC 40 MG/1 ML VIAL IVPB SCH (18:00)
[2021-06-28] MEDS ORDERED: CHLORHEXIDINE GLUCONATE 4% CLEANSER FOR DECOLONIZATION TP SCH (22:00)
[2021-06-28] MEDS ORDERED: MUPIROCIN 2% TOPICAL OINTMENT FOR DECOLONIZATION NS SCH (22:00)
[2021-06-29] MEDS: methylPREDNISolone NA SUCC 40 MG/1 ML VIAL IVPUSH SCH ×2 (03:51→10:52)
[2021-06-29] MEDS: ALBUTEROL SO4 2.5/IPRATROPIUM 0.5 INH SOL 3 ML VIAL.NEB. NEB SCH ×2 (08:00→12:45)
[2021-06-29] MEDS ORDERED: PANTOPRAZOLE SODIUM 40 MG VIAL IVPUSH SCH (10:00)
[2021-06-29] MEDS: NYSTATIN POWDER 100,000 UNITS/GM - 15 GM TOPICAL POWDER TP SCH (10:00)
[2021-06-29] MEDS ORDERED: ASPIRIN 81 MG CHEWABLE TABLETS PO SCH (10:00)
[2021-06-29] MEDS ORDERED: LOSARTAN POTASSIUM 25 MG TABLET PO SCH (10:00)
[2021-06-29] MEDS ORDERED: LACTOBACILLUS ACIDOPHILUS 1 TABLET PO SCH (10:00)
[2021-06-29] MEDS ORDERED: ENOXAPARIN NA (PORCINE) 40 MG/0.4 ML DISP.SYRIN SQ SCH (10:00)
[2021-06-29] MEDS ORDERED: predniSONE 20 MG TABLET (UD) PO SCH (10:30)
[2021-06-29] MEDS ORDERED: PANTOPRAZOLE 40 MG TABLET PO SCH (10:30)
[2021-06-29 11:40] VITALS: BP 125/72; PULSE 101; TEMP 97.7
== END 2021-06-29 13:51 | disposition home or self-care (01) | DRG 189 ==
LOC: JER 00:37 → JERBED 03:42 → JICU 15:37 → J5S 06-28 13:54
PROVIDERS: ADMIT Internal Medicine; ATTEND Internal Medicine
DX: J96.01 Acute respiratory failure with hypoxia (principal); J18.9 Pneumonia, unspecified organism; G92.9 Unspecified toxic encephalopathy; I24.8 Other forms of acute ischemic heart disease; N39.0 Urinary tract infection, site not specified; J44.1 Chronic obstructive pulmonary disease with (acute) exacerbation; K51.90 Ulcerative colitis, unspecified, without complications; I50.22 Chronic systolic (congestive) heart failure; R00.0 Tachycardia, unspecified; J96.02 Acute respiratory failure with hypercapnia; M06.9 Rheumatoid arthritis, unspecified; D50.9 Iron deficiency anemia, unspecified; F41.9 Anxiety disorder, unspecified; R74.01 Elevation of levels of liver transaminase levels; F03.90 Unspecified dementia, unspecified severity, without behavioral disturbance, psychotic disturbance, mood disturbance, and anxiety; R91.1 Solitary pulmonary nodule; D72.820 Lymphocytosis (symptomatic); G43.909 Migraine, unspecified, not intractable, without status migrainosus; M54.50 Low back pain, unspecified; R79.89 Other specified abnormal findings of blood chemistry; R21 Rash and other nonspecific skin eruption; G47.00 Insomnia, unspecified; I11.0 Hypertensive heart disease with heart failure; I35.1 Nonrheumatic aortic (valve) insufficiency
CPT/HCPCS: 36415; 36600; 71045-TC-FY; 76705-TC; 80053; 80076; 82550; 82803; 83605; 83735; 84100; 84443; 84484; 85025; 85610; 85730; 86705; 86708; 86850; 86900; 86901; 87324; 87449; 87517; 87522; 93005; 93010; 93306-TC; 94640; 94660; 94761; 97116-GP; 97162-GP; 99285-25; C9803; U0003; U0005

== ENCOUNTER 2021-07-30 03:23 | Inpatient (IN) | payer OTHER, MEDICARE ==
[2021-07-30] MEDS ORDERED: MAGNESIUM SULFATE IN WATER 2 GM/50 ML IVPB IVPB ONE (03:36)
[2021-07-30] MEDS ORDERED: ALBUTEROL SO4 2.5/IPRATROPIUM 0.5 INH SOL 3 ML VIAL.NEB. NEB ONE (03:36)
[2021-07-30] MEDS ORDERED: FUROSEMIDE 40 MG/4 ML INJECTABLE VIAL IVPUSH ONE (04:27)
[2021-07-30 04:45] LABS: ARTERIAL BLD GAS O2 SATURATION 86.3 % (95-98); ARTERIAL BLOOD GAS BASE EXCESS -7.7 mmol/L (-2-2); ARTERIAL BLOOD GAS PO2 74.5 mmHg (80-100)
[2021-07-30 04:47] LABS: ALLENS TEST POSITIVE
[2021-07-30 04:50] LABS: ARTERIAL BLOOD GAS pH 7.038 (7.350-7.450)
[2021-07-30 05:03] LABS: INR 1.04 (0.83-1.09)
[2021-07-30 05:05] LABS: ACTIVATED PTT 31.2 SECONDS (25.2-36.5)
[2021-07-30 05:18] LABS: CALCIUM 9.2 mg/dL (8.5-10.1)
[2021-07-30 05:19] LABS: ALBUMIN 3.2 g/dl (3.4-5.0); BLOOD UREA NITROGEN 21.6 mg/dL (7-18); MAGNESIUM 2.1 mg/dL (1.8-2.4)
[2021-07-30 05:22] LABS: CREATININE 0.8 mg/dL (0.55-1.3); PHOSPHOROUS 6.8 mg/dL (2.5-4.9)
[2021-07-30 05:24] LABS: BILIRUBIN,TOTAL 0.3 mg/dL (0.2-1); TOT PROT 6.4 g/dl (6.4-8.2)
[2021-07-30 05:27] LABS: N-TERMINAL BNP 10327.2 pg/ml (5-450)
[2021-07-30] MEDS ORDERED: MAGNESIUM SULF 50% (8.12 MEQ/2 ML-1 GM VIAL) IVPB ONE (05:45)
[2021-07-30] MEDS ORDERED: FUROSEMIDE 40 MG/4 ML INJECTABLE VIAL ONE (05:45)
[2021-07-30] MEDS ORDERED: PIPERACILLIN/TAZOB 4.5 GM 4.5 GM in DEXTROSE 5%-WATER 100 ML IVPB ONE (06:01)
[2021-07-30] MEDS ORDERED: VANCOMYCIN 1 GM in D5W (PRE-DOCKED) 1,000 MG/250 ML IVPB ONE (06:01)
[2021-07-30] MEDS: ALBUTEROL SO4 2.5/IPRATROPIUM 0.5 INH SOL 3 ML VIAL.NEB. NEB SCH ×7 (06:04→23:18)
[2021-07-30] MEDS ORDERED: PIPERACILLIN/TAZOB 4.5 GM 4.5 GM/100 ML BAG IVPB ONE (06:14)
[2021-07-30 06:27] LABS: EPI CELLS 2 /uL (0-25.1); HYALINE CASTS 1 /uL (0-3.1); URINE APPEARANCE CLOUDY; URINE BACTERIA 1547 /uL (0-1359); URINE BILIRUBIN NEGATIVE (NEGATIVE); URINE COLOR YELLOW; URINE GLUCOSE (UA) TRACE (NEGATIVE); URINE KETONE NEGATIVE (NEGATIVE); URINE LEUK ESTERASE 2+ (NEGATIVE); URINE NITRITE NEGATIVE (NEGATIVE); URINE PROTEIN 2+ (NEGATIVE); URINE RBC 17 /uL (0-23.9); URINE UROBILINOGEN 0.2 mg/dL (0.2-1.0); URINE WBC 1253 /uL (0-25.8)
[2021-07-30 06:30] LABS: BASO % 1.4 % (0-2.0); EOS % 2.6 % (0-4.5); HEMOGLOBIN 11.7 GM/dL (10.7-15.3); LYMPH % 22.1 % (8-40); MCH 28.1 pg (25.7-33.7); MCHC 31.6 g/dl (32.0-36.0); MEAN CELL VOLUME 88.9 fl (80-96); MONO % 7.1 % (3.8-10.2); NEUT % 66.8 % (42.8-82.8); PLATELET COUNT 660 10^3/uL (134-434); RBC 4.16 M/mm3 (3.60-5.2); RDW 20.2 % (11.6-15.6); WHITE BLOOD COUNT 10.9 K/mm3 (4.0-10.0)
[2021-07-30] MEDS ORDERED: VANCOMYCIN 1 GRAM (PRE-DOCKED) 1,000 MG/250 ML BAG IVPB ONE (06:44)
[2021-07-30] MEDS ORDERED: ASPIRIN 81 MG CHEWABLE TABLETS PO ONE (06:52)
[2021-07-30 06:54] LABS: ARTERIAL BLD GAS O2 SATURATION 89.9 % (95-98); ARTERIAL BLOOD GAS BASE EXCESS -3.8 mmol/L (-2-2); ARTERIAL BLOOD GAS PO2 65.2 mmHg (80-100); ARTERIAL BLOOD GAS pH 7.275 (7.350-7.450)
[2021-07-30 06:57] LABS: ALLENS TEST POSITIVE; VENT RATE 20
[2021-07-30] MEDS ORDERED: HEPARIN NA (PORCINE) 5,000 UNITS/ML 1ML VIAL IVPUSH PRN ×5 (08:05→08:38)
[2021-07-30] MEDS ORDERED: HEPARIN - 25,000 UNIT in SODIUM CHLORIDE 495 ML IV SCH (08:15)
[2021-07-30] MEDS ORDERED: HEPARIN INFUSION - 25,000 UNITS/500 ML INFUS.BAG IVPB ONE (08:21)
[2021-07-30] MEDS ORDERED: HEPARIN NA (PORCINE) 5,000 UNITS/ML 1ML VIAL ONE (08:33)
[2021-07-30] MEDS ORDERED: HEPARIN INFUSION - 25,000 UNITS/500 ML INFUS.BAG IVPB SCH (08:45)
[2021-07-30] MEDS ORDERED: ALBUTEROL SO4 0.083% IH SOL 2.5 MG/3 ML VIAL.NEB. NEB PRN (10:58)
[2021-07-30] MEDS ORDERED: ALPRAZolam 0.25 MG TABLET PO PRN (11:43)
[2021-07-30] MEDS: INSULIN SLIDING SCALE (NOVOLOG) 1 VIAL SQ SCH ×3 (11:50→22:04)
[2021-07-30] MEDS ORDERED: ACETAMINOPHEN 325 MG TABLET (FP) PO PRN (12:07)
[2021-07-30] MEDS: HEPARIN NA (PORCINE) 5,000 UNITS/ML 1ML VIAL SQ SCH ×2 (13:30→21:53)
[2021-07-30] MEDS: FUROSEMIDE 40 MG/4 ML INJECTABLE VIAL IVPUSH SCH (13:30)
[2021-07-30] MEDS ORDERED: VANCOMYCIN 1,000 MG in DEXTROSE 5%-WATER - 250 ML IVPB SCH (13:45)
[2021-07-30] MEDS ORDERED: VANCOMYCIN 1 GM in D5W (PRE-DOCKED) 1,000 MG/250 ML IVPB SCH (14:00)
[2021-07-30] MEDS ORDERED: ACETAMINOPHEN/CAFFEINE/BUTALBITAL 1 TAB PO ONE (14:45)
[2021-07-30] MEDS ORDERED: DEXTROSE 5%-WATER 100 ML IVPB ONE ×3 (14:57→21:49)
[2021-07-30] MEDS ORDERED: PIPERACILLIN/TAZOBACTAM 4.5 GM VIAL IVPB ONE ×2 (14:57→21:49)
[2021-07-30] MEDS ORDERED: PIPERACILLIN/TAZOB 4.5 GM 4.5 GM in DEXTROSE 5%-WATER 100 ML IVPB SCH (15:00)
[2021-07-30] MEDS: methylPREDNISolone NA SUCC 40 MG/1 ML VIAL IVPUSH SCH (17:06)
[2021-07-30] MEDS: MELATONIN 5 MG TABLETS PO PRN (20:09)
[2021-07-30] MEDS ORDERED: DOXYCYCLINE HYCLATE 100 MG VIAL ONE (21:49)
[2021-07-30] MEDS: DOXYCYCLINE INJECTION 100 MG in DEXTROSE 5%-WATER 100 ML IVPB SCH (21:51)
[2021-07-30] MEDS ORDERED: BUDESONIDE/FORMETEROL FUMARATE 160/4.5 mcg INHALER IH SCH (22:00)
[2021-07-30] MEDS: BUDESONIDE/FORMETEROL FUMARATE 160/4.5 mcg INHALER IH SCH (22:09)
[2021-07-30] MEDS: PIPERACILLIN/TAZOB 4.5 GM 4.5 GM in DEXTROSE 5%-WATER 100 ML IVPB SCH (23:23)
[2021-07-31] MEDS: methylPREDNISolone NA SUCC 40 MG/1 ML VIAL IVPUSH SCH ×4 (02:10→21:18)
[2021-07-31] MEDS ORDERED: DEXTROSE 5%-WATER 100 ML IVPB ONE ×3 (04:47→21:15)
[2021-07-31] MEDS ORDERED: PIPERACILLIN/TAZOBACTAM 4.5 GM VIAL IVPB ONE ×2 (04:47→21:14)
[2021-07-31] MEDS: HEPARIN NA (PORCINE) 5,000 UNITS/ML 1ML VIAL SQ SCH ×3 (05:13→21:18)
[2021-07-31] MEDS: FUROSEMIDE 40 MG/4 ML INJECTABLE VIAL IVPUSH SCH ×2 (05:13→14:46)
[2021-07-31] MEDS ORDERED: VANCOMYCIN 1 GM in D5W (PRE-DOCKED) 1,000 MG/250 ML IVPB SCH (06:00)
[2021-07-31] MEDS: PIPERACILLIN/TAZOB 4.5 GM 4.5 GM in DEXTROSE 5%-WATER 100 ML IVPB SCH ×3 (06:20→22:03)
[2021-07-31] MEDS: INSULIN SLIDING SCALE (NOVOLOG) 1 VIAL SQ SCH ×4 (06:59→21:40)
[2021-07-31] MEDS ORDERED: DOXYCYCLINE INJECTION 100 MG in DEXTROSE 5%-WATER 100 ML IVPB SCH (10:00)
[2021-07-31] MEDS ORDERED: DOXYCYCLINE HYCLATE 100 MG VIAL ONE (10:23)
[2021-07-31] MEDS: ASPIRIN 81 MG CHEWABLE TABLETS PO SCH (10:25)
[2021-07-31] MEDS: BUDESONIDE/FORMETEROL FUMARATE 160/4.5 mcg INHALER IH SCH ×2 (10:25→21:18)
[2021-07-31] MEDS: PANTOPRAZOLE SODIUM 40 MG VIAL IVPUSH SCH (10:25)
[2021-07-31] MEDS: DOXYCYCLINE INJECTION 100 MG in DEXTROSE 5%-WATER 100 ML IVPB SCH (10:25)
[2021-07-31 12:04] LABS: HEMATOCRIT 36.2 % (32.4-45.2); HEMOGLOBIN 11.3 GM/dL (10.7-15.3); MCH 26.7 pg (25.7-33.7); MCHC 31.4 g/dl (32.0-36.0); MEAN CELL VOLUME 85.1 fl (80-96); MEAN PLT VOLUME 7.7 fl (7.5-11.1); PLATELET COUNT 539 10^3/uL (134-434); RBC 4.25 M/mm3 (3.60-5.2); RDW 19.9 % (11.6-15.6); WHITE BLOOD COUNT 11.7 K/mm3 (4.0-10.0)
[2021-07-31 12:31] LABS: ALBUMIN 3.3 g/dl (3.4-5.0); BLOOD UREA NITROGEN 24.9 mg/dL (7-18); MAGNESIUM 2.1 mg/dL (1.8-2.4)
[2021-07-31 12:34] LABS: CREATININE 0.9 mg/dL (0.55-1.3)
[2021-07-31 12:36] LABS: BILIRUBIN,TOTAL 0.6 mg/dL (0.2-1); TOT PROT 6.5 g/dl (6.4-8.2)
[2021-07-31 12:47] LABS: ANISOCYTOSIS 1+; MACROCYTOSIS 0
[2021-07-31] MEDS: ALPRAZolam 0.25 MG TABLET PO PRN ×2 (14:46→22:26)
[2021-07-31] MEDS: MELATONIN 5 MG TABLETS PO PRN (20:16)
[2021-08-01] MEDS ORDERED: DEXTROSE 5%-WATER 100 ML IVPB ONE ×4 (04:25→23:26)
[2021-08-01] MEDS ORDERED: PIPERACILLIN/TAZOBACTAM 4.5 GM VIAL IVPB ONE ×4 (04:25→23:26)
[2021-08-01] MEDS: FUROSEMIDE 40 MG/4 ML INJECTABLE VIAL IVPUSH SCH (05:29)
[2021-08-01] MEDS: HEPARIN NA (PORCINE) 5,000 UNITS/ML 1ML VIAL SQ SCH ×3 (05:29→22:15)
[2021-08-01] MEDS: VANCOMYCIN/WATER FOR INJ (PEG) 1,000 MG/200 ML BAG IVPB SCH (05:37)
[2021-08-01] MEDS: PIPERACILLIN/TAZOB 4.5 GM 4.5 GM in DEXTROSE 5%-WATER 100 ML IVPB SCH ×2 (06:40→14:20)
[2021-08-01] MEDS: INSULIN SLIDING SCALE (NOVOLOG) 1 VIAL SQ SCH ×4 (06:42→22:15)
[2021-08-01] MEDS: BUDESONIDE/FORMETEROL FUMARATE 160/4.5 mcg INHALER IH SCH ×2 (09:25→22:15)
[2021-08-01] MEDS: ASPIRIN 81 MG CHEWABLE TABLETS PO SCH (09:25)
[2021-08-01] MEDS: methylPREDNISolone NA SUCC 40 MG/1 ML VIAL IVPUSH SCH ×2 (09:25→22:15)
[2021-08-01] MEDS: PANTOPRAZOLE SODIUM 40 MG VIAL IVPUSH SCH (09:25)
[2021-08-01] MEDS: LISINOPRIL 5 MG TABLET PO SCH (11:07)
[2021-08-01] MEDS: ALPRAZolam 0.25 MG TABLET PO PRN (12:46)
[2021-08-01] MEDS: FUROSEMIDE 40 MG TABLET (FP) PO SCH (14:20)
[2021-08-01 15:50] VITALS: BMI 21.7
[2021-08-02] MEDS: NYSTATIN POWDER 100,000 UNITS/GM - 15 GM TOPICAL POWDER TP SCH ×2 (00:33→10:04)
[2021-08-02] MEDS: PIPERACILLIN/TAZOB 4.5 GM 4.5 GM in DEXTROSE 5%-WATER 100 ML IVPB SCH (00:34)
[2021-08-02] MEDS ORDERED: ALBUTEROL SO4 0.083% IH SOL 2.5 MG/3 ML VIAL.NEB. NEB PRN (03:47)
[2021-08-02] MEDS ORDERED: MELATONIN 5 MG TABLETS PO PRN (03:47)
[2021-08-02] MEDS ORDERED: ACETAMINOPHEN 325 MG TABLET (FP) PO PRN (03:47)
[2021-08-02] MEDS: VANCOMYCIN/WATER FOR INJ (PEG) 1,000 MG/200 ML BAG IVPB SCH (06:49)
[2021-08-02] MEDS: INSULIN SLIDING SCALE (NOVOLOG) 1 VIAL SQ SCH ×3 (06:49→16:57)
[2021-08-02] MEDS: FUROSEMIDE 40 MG TABLET (FP) PO SCH ×2 (06:49→14:00)
[2021-08-02] MEDS: HEPARIN NA (PORCINE) 5,000 UNITS/ML 1ML VIAL SQ SCH ×2 (06:49→14:00)
[2021-08-02] MEDS ORDERED: PIPERACILLIN/TAZOBACTAM 4.5 GM VIAL IVPB ONE (09:41)
[2021-08-02] MEDS ORDERED: DEXTROSE 5%-WATER 100 ML IVPB ONE (09:43)
[2021-08-02] MEDS: methylPREDNISolone NA SUCC 40 MG/1 ML VIAL IVPUSH SCH (09:54)
[2021-08-02] MEDS: LISINOPRIL 5 MG TABLET PO SCH ×2 (09:55→10:28)
[2021-08-02] MEDS ORDERED: PIPERACILLIN/TAZOB 4.5 GM 4.5 GM in DEXTROSE 5%-WATER 100 ML IVPB SCH (10:00)
[2021-08-02] MEDS ORDERED: ASPIRIN 81 MG CHEWABLE TABLETS PO SCH (10:00)
[2021-08-02] MEDS ORDERED: MULTIVIT-MINERALS ORAL LIQUID PO SCH (10:00)
[2021-08-02] MEDS ORDERED: BUDESONIDE/FORMETEROL FUMARATE 160/4.5 mcg INHALER IH SCH (10:00)
[2021-08-02] MEDS ORDERED: metoPROLOL SUCCINATE 25 MG TAB.SR.24H (FP) PO SCH (10:00)
[2021-08-02] MEDS ORDERED: PANTOPRAZOLE SODIUM 40 MG VIAL IVPUSH SCH (10:00)
[2021-08-02 15:48] VITALS: BP 96/50; PULSE 91; TEMP 97.8
== END 2021-08-02 18:01 | disposition home or self-care (01) | DRG 189 ==
LOC: JER 03:23 → JERBED 07:11 → JICU 10:15 → J4W 08-01 22:10
PROVIDERS: ADMIT Internal Medicine; ATTEND Internal Medicine
DX: J96.01 Acute respiratory failure with hypoxia (principal); I50.23 Acute on chronic systolic (congestive) heart failure; J69.0 Pneumonitis due to inhalation of food and vomit; J44.1 Chronic obstructive pulmonary disease with (acute) exacerbation; N39.0 Urinary tract infection, site not specified; K51.90 Ulcerative colitis, unspecified, without complications; E87.2 Acidosis; I24.8 Other forms of acute ischemic heart disease; J96.02 Acute respiratory failure with hypercapnia; R91.1 Solitary pulmonary nodule; M06.9 Rheumatoid arthritis, unspecified; D50.9 Iron deficiency anemia, unspecified
CPT/HCPCS: 36415; 36600; 71045-TC-FY; 74230-TC-FY; 80053; 81003; 82272; 82803; 82962; 83605; 83735; 83880; 84100; 84484; 85025; 85610; 85730; 87040; 87070; 87081; 87086; 87186; 87205; 87804; 87899; 92611-GN; 93005; 93010; 94640; 94660; 97116-GP; 97161-GP; 99291; 99292; C9803-CS; J1644; U0003; U0005

== ENCOUNTER 2021-10-02 08:35 | Day surgery (SDC) | payer OTHER, MEDICARE ==
[2021-10-02] MEDS ORDERED: FERRIC CARBOXYMALTOSE 750 MG in SODIUM CHLORIDE 250 ML IVPB ONE (10:00)
[2021-10-02 18:19] VITALS: TEMP 98.1
[2021-10-02 18:22] VITALS: BP 111/57; PULSE 79
== END 2021-10-02 13:00 | disposition home or self-care (01) ==
LOC: JONCNONCHE 08:35
PROVIDERS: ATTEND Internal Medicine Hematology & Oncology
PROC: 3E033GC Introduction of Other Therapeutic Substance into Peripheral Vein, Percutaneous Approach (ICD-10-PCS; principal; 2021-10-02)
DX: D50.9 Iron deficiency anemia, unspecified (principal)
CPT/HCPCS: 96365; J1439

== ENCOUNTER 2021-10-10 10:16 | Day surgery (SDC) | payer OTHER, MEDICARE ==
[2021-10-10 10:45] VITALS: TEMP 97.9
[2021-10-10] MEDS ORDERED: FERRIC CARBOXYMALTOSE 750 MG in SODIUM CHLORIDE 250 ML IVPB ONE (12:00)
[2021-10-10 14:13] VITALS: BP 144/70; PULSE 76
== END 2021-10-10 12:45 | disposition home or self-care (01) ==
LOC: JONCNONCHE 10:16
PROVIDERS: ATTEND Internal Medicine Hematology & Oncology
PROC: 3E033GC Introduction of Other Therapeutic Substance into Peripheral Vein, Percutaneous Approach (ICD-10-PCS; principal; 2021-10-10)
DX: E61.1 Iron deficiency (principal)
CPT/HCPCS: 96365; J1439

== ENCOUNTER 2021-12-24 17:19 | Inpatient (IN) | payer OTHER, MEDICARE ==
[2021-12-24] MEDS ORDERED: MIDAZOLAM HCL 2 MG/2 ML SINGLE DOSE VIAL IVPUSH ONE ×2 (17:44→19:07)
[2021-12-24] MEDS ORDERED: MIDAZOLAM IN 0.9 % SOD.CHLORID 100 MG/100 ML PLAST..BAG IVPB SCH (17:45)
[2021-12-24 18:07] LABS: VENOUS BASE EXCESS -20.5 mmol/L (-2-2); VENOUS O2 SATURATION 64.2 % (70-80)
[2021-12-24 18:09] LABS: BASO % 0.5 % (0-2.0); EOS % 1.2 % (0-4.5); HEMATOCRIT 13.3 % (32.4-45.2); MCH 30.3 pg (25.7-33.7); MCHC 31.4 g/dl (32.0-36.0); MEAN CELL VOLUME 96.6 fl (80-96); MEAN PLT VOLUME 7.8 fl (7.5-11.1); MONO % 8.8 % (3.8-10.2); NEUT % 71.5 % (42.8-82.8); PLATELET COUNT 104 10^3/uL (134-434); RBC 1.37 M/mm3 (3.60-5.2); RDW 17.2 % (11.6-15.6)
[2021-12-24] MEDS ORDERED: ALBUTEROL SO4 2.5/IPRATROPIUM 0.5 INH SOL 3 ML VIAL.NEB. NEB ONE ×2 (18:10→18:11)
[2021-12-24] MEDS ORDERED: ACETAMINOPHEN 1000 MG/100 ML BAG IVPB ONE (18:11)
[2021-12-24] MEDS ORDERED: ACETAMINOPHEN INJECTION 100 ML IVPB ONE (18:11)
[2021-12-24 18:13] LABS: HEMOGLOBIN 4.2 GM/dL (10.7-15.3)
[2021-12-24 18:18] LABS: VENOUS PH 7.085 (7.310-7.410)
[2021-12-24 18:27] LABS: CHLORIDE 115 mmol/L (98-107); SODIUM 145 mmol/L (136-145)
[2021-12-24 18:29] LABS: ALBUMIN 2.4 g/dl (3.4-5.0); ANION GAP 10 MMOL/L (8-16); BLOOD UREA NITROGEN 15.1 mg/dL (7-18); CO2 19 mmol/L (21-32); GLUCOSE,RANDOM 259 mg/dL (74-106)
[2021-12-24 18:32] LABS: CREATININE 0.6 mg/dL (0.55-1.3)
[2021-12-24 18:33] LABS: SGOT/AST 122 U/L (15-37); SGPT/ALT 65 U/L (13-61)
[2021-12-24] MEDS ORDERED: VANCOMYCIN 1 GM in D5W (PRE-DOCKED) 1,000 MG/250 ML IVPB ONE (18:33)
[2021-12-24 18:34] LABS: BILIRUBIN,TOTAL 0.2 mg/dL (0.2-1)
[2021-12-24 18:35] LABS: ALK PHOS 167 U/L (45-117); N-TERMINAL BNP 4247.7 pg/ml (5-450)
[2021-12-24 18:39] VITALS: BMI 20.7
[2021-12-24 18:46] LABS: CALCIUM 6.4 mg/dL (8.5-10.1)
[2021-12-24] MEDS ORDERED: POTASSIUM CHLORIDE ORAL LIQUID 20 MEQ/15 ML PO ONE (18:46)
[2021-12-24] MEDS ORDERED: CALCIUM CHLORIDE 10% 1 GM/10 ML *VIAL IVPB ONE (18:55)
[2021-12-24 19:00] LABS: ARTERIAL BLD GAS O2 SATURATION 98.8 % (95-98); ARTERIAL BLOOD GAS BASE EXCESS -5.8 mmol/L (-2-2); ARTERIAL BLOOD GAS PO2 182.6 mmHg (80-100)
[2021-12-24 19:01] LABS: VENT RATE 12
[2021-12-24 19:02] LABS: ARTERIAL BLOOD GAS pH 7.163 (7.350-7.450)
[2021-12-24] MEDS ORDERED: PIPERACILLIN/TAZOB 4.5 GM 4.5 GM in DEXTROSE 5%-WATER 100 ML IVPB ONE (19:05)
[2021-12-24] MEDS ORDERED: POTASSIUM CHLORIDE ORAL LIQUID 20 MEQ/15 ML ONE (19:18)
[2021-12-24] MEDS ORDERED: VANCOMYCIN/WATER FOR INJ (PEG) 1,000 MG/200 ML BAG IVPB ONE (19:19)
[2021-12-24 19:34] LABS: EPI CELLS 10 /uL (0-25.1); HYALINE CASTS 4 /uL (0-3.1); PH,URINE 5.5 (5.0-8.0); URINE APPEARANCE CLOUDY; URINE BACTERIA >9,000 /uL (0-1359); URINE BILIRUBIN NEGATIVE (NEGATIVE); URINE COLOR YELLOW; URINE GLUCOSE (UA) 1+ (NEGATIVE); URINE KETONE NEGATIVE (NEGATIVE); URINE LEUK ESTERASE 1+ (NEGATIVE); URINE NITRITE POSITIVE (NEGATIVE); URINE PROTEIN 3+ (NEGATIVE); URINE RBC 56 /uL (0-23.9); URINE UROBILINOGEN 0.2 mg/dL (0.2-1.0); URINE WBC 776 /uL (0-25.8)
[2021-12-24] MEDS ORDERED: FENTANYL IVPB 500 MCG/100 ML BAG IVPB SCH (21:15)
[2021-12-24] MEDS ORDERED: ACETAMINOPHEN 1000 MG/100 ML BAG IVPB PRN (21:17)
[2021-12-24 21:55] LABS: ARTERIAL BLD GAS O2 SATURATION 88.9 % (95-98); ARTERIAL BLOOD GAS BASE EXCESS -3.6 mmol/L (-2-2); ARTERIAL BLOOD GAS PO2 62.5 mmHg (80-100); ARTERIAL BLOOD GAS pH 7.281 (7.350-7.450)
[2021-12-24 21:57] LABS: ALLENS TEST POSITIVE; VENT MODE A/C; VENT RATE 22
[2021-12-24] MEDS ORDERED: FENTANYL NS IVPB 500 MCG/100 ML BAG IVPB SCH (22:15)
[2021-12-25 00:55] LABS: CHLORIDE 132 mmol/L (98-107); SODIUM 150 mmol/L (136-145)
[2021-12-25 00:58] LABS: ALBUMIN 0.9 g/dl (3.4-5.0); BLOOD UREA NITROGEN 8.8 mg/dL (7-18); CO2 11 mmol/L (21-32); GLUCOSE,RANDOM 149 mg/dL (74-106)
[2021-12-25 01:01] LABS: CREATININE < 0.2 mg/dL (0.55-1.3); SGOT/AST 53 U/L (15-37); SGPT/ALT 27 U/L (13-61)
[2021-12-25 01:03] LABS: BILIRUBIN,TOTAL 0.4 mg/dL (0.2-1)
[2021-12-25 01:05] LABS: ALK PHOS 66 U/L (45-117)
[2021-12-25 01:16] LABS: ANION GAP 7 MMOL/L (8-16)
[2021-12-25 01:18] LABS: CALCIUM < 5.0 mg/dL (8.5-10.1)
[2021-12-25] MEDS ORDERED: CALCIUM GLUCONATE 10% - 1,000 MG/10 ML VIAL IVPUSH ONE (01:29)
[2021-12-25] MEDS: CHLORHEXIDINE GLUCONATE 4% CLEANSER FOR DECOLONIZATION TP SCH ×2 (01:41→22:15)
[2021-12-25] MEDS: KCL 10 MEQ IVPB 10 MEQ/100 ML INFUS.BAG IVPB SCH ×6 (01:41→08:15)
[2021-12-25] MEDS: MUPIROCIN 2% TOPICAL OINTMENT FOR DECOLONIZATION NS SCH ×3 (01:41→22:15)
[2021-12-25 02:28] LABS: MAGNESIUM 0.6 mg/dL (1.8-2.4)
[2021-12-25] MEDS ORDERED: NAPH,MB-DB/K PH,MBDB POWDER PACKET PO ONE (02:40)
[2021-12-25] MEDS ORDERED: MAGNESIUM 2GM/50ML STERILE WATER IVPB IVPB ONE ×2 (02:45→04:30)
[2021-12-25] MEDS ORDERED: POTASSIUM CHLORIDE ORAL LIQUID 20 MEQ/15 ML PO ONE ×2 (04:30→07:30)
[2021-12-25] MEDS ORDERED: MAGNESIUM SULF 50% (8.12 MEQ/2 ML-1 GM VIAL) IVPB ONE (05:30)
[2021-12-25 06:35] LABS: ALLENS TEST POSITIVE; ARTERIAL BLD GAS O2 SATURATION 95.6 % (95-98); ARTERIAL BLOOD GAS BASE EXCESS -3.8 mmol/L (-2-2); ARTERIAL BLOOD GAS PO2 86.4 mmHg (80-100); ARTERIAL BLOOD GAS pH 7.301 (7.350-7.450)
[2021-12-25 06:36] LABS: VENT MODE A/C; VENT RATE 22
[2021-12-25 08:12] LABS: CHLORIDE 106 mmol/L (98-107); SODIUM 139 mmol/L (136-145)
[2021-12-25 08:14] LABS: BLOOD UREA NITROGEN 19.2 mg/dL (7-18); CO2 25 mmol/L (21-32); GLUCOSE,RANDOM 110 mg/dL (74-106); MAGNESIUM 3.2 mg/dL (1.8-2.4)
[2021-12-25 08:18] LABS: CREATININE 0.6 mg/dL (0.55-1.3); PHOSPHOROUS 4.7 mg/dL (2.5-4.9); SGOT/AST 71 U/L (15-37); SGPT/ALT 86 U/L (13-61)
[2021-12-25 08:23] LABS: ALBUMIN 3.4 g/dl (3.4-5.0); ALK PHOS 210 U/L (45-117); ANION GAP 8 MMOL/L (8-16)
[2021-12-25] MEDS ORDERED: VANCOMYCIN 1 GM in D5W (PRE-DOCKED) 1,000 MG/250 ML IVPB ONE (09:10)
[2021-12-25] MEDS ORDERED: PIPERACILLIN/TAZOB 4.5 GM 4.5 GM in DEXTROSE 5%-WATER 100 ML IVPB ONE (09:12)
[2021-12-25] MEDS: methylPREDNISolone NA SUCC 40 MG/1 ML VIAL IVPUSH SCH ×2 (10:44→18:25)
[2021-12-25] MEDS: PANTOPRAZOLE SODIUM 40 MG VIAL IVPUSH SCH (10:45)
[2021-12-25] MEDS: SODIUM CHLORIDE 1,000 ML IV SCH (10:45)
[2021-12-25] MEDS: ALBUTEROL SO4 2.5/IPRATROPIUM 0.5 INH SOL 3 ML VIAL.NEB. NEB SCH ×4 (11:00→20:16)
[2021-12-25 11:56] LABS: HEMATOCRIT 54.5 % (32.4-45.2); HEMOGLOBIN 18.2 GM/dL (10.7-15.3); MCH 30.2 pg (25.7-33.7); MCHC 33.4 g/dl (32.0-36.0); MEAN CELL VOLUME 90.6 fl (80-96); PLATELET COUNT 210 10^3/uL (134-434); RBC 6.02 M/mm3 (3.60-5.2); RDW 16.9 % (11.6-15.6); WHITE BLOOD COUNT 7.8 K/mm3 (4.0-10.0)
[2021-12-25 12:01] LABS: BASO % 0.3 % (0-2.0); EOS % 0.1 % (0-4.5); HEMATOCRIT 50.5 % (32.4-45.2); HEMOGLOBIN 16.6 GM/dL (10.7-15.3); MCH 29.5 pg (25.7-33.7); MCHC 32.8 g/dl (32.0-36.0); MEAN PLT VOLUME 8.4 fl (7.5-11.1); MONO % 12.9 % (3.8-10.2); NEUT % 78.7 % (42.8-82.8); PLATELET COUNT 228 10^3/uL (134-434); RBC 5.61 M/mm3 (3.60-5.2); RDW 16.2 % (11.6-15.6); WHITE BLOOD COUNT 6.7 K/mm3 (4.0-10.0)
[2021-12-25 12:15] LABS: CHLORIDE 109 mmol/L (98-107); SODIUM 135 mmol/L (136-145)
[2021-12-25 12:16] LABS: CALCIUM 8.5 mg/dL (8.5-10.1)
[2021-12-25 12:17] LABS: BLOOD UREA NITROGEN 19.4 mg/dL (7-18); CO2 23 mmol/L (21-32); GLUCOSE,RANDOM 110 mg/dL (74-106); MAGNESIUM 3.7 mg/dL (1.8-2.4)
[2021-12-25 12:20] LABS: CREATININE 0.6 mg/dL (0.55-1.3); PHOSPHOROUS 4.1 mg/dL (2.5-4.9)
[2021-12-25] MEDS ORDERED: ACETAMINOPHEN 1000 MG/100 ML BAG IVPB ONE (12:20)
[2021-12-25 12:24] LABS: ANION GAP 4 MMOL/L (8-16)
[2021-12-25] MEDS ORDERED: VANCOMYCIN 1 GM/200 ML PREMIX BAG IVPB ONE (14:00)
[2021-12-25 15:07] LABS: CALCIUM 8.4 mg/dL (8.5-10.1); MAGNESIUM 3.5 mg/dL (1.8-2.4)
[2021-12-25 15:08] LABS: BLOOD UREA NITROGEN 21.7 mg/dL (7-18)
[2021-12-25 15:10] LABS: PHOSPHOROUS 4.4 mg/dL (2.5-4.9)
[2021-12-25 15:11] LABS: CREATININE 0.7 mg/dL (0.55-1.3)
[2021-12-25] MEDS: DEXMEDETOMIDINE IN 0.9 % NACL 400 MCG/100 ML VIAL IVPB SCH (15:50)
[2021-12-25] MEDS: PIPERACILLIN/TAZOB 3.375 GM 3.375 GM in DEXTROSE 5%-WATER - 50 ML IVPB SCH (18:25)
[2021-12-25 20:52] LABS: ANISOCYTOSIS 2+; MACROCYTOSIS 0
[2021-12-25] MEDS: FENTANYL NS IVPB 500 MCG/100 ML BAG IVPB SCH (23:19)
[2021-12-26] MEDS: PIPERACILLIN/TAZOB 3.375 GM 3.375 GM in DEXTROSE 5%-WATER - 50 ML IVPB SCH ×3 (01:09→17:29)
[2021-12-26] MEDS: methylPREDNISolone NA SUCC 40 MG/1 ML VIAL IVPUSH SCH ×3 (01:09→17:29)
[2021-12-26] MEDS: FENTANYL NS IVPB 500 MCG/100 ML BAG IVPB SCH (05:17)
[2021-12-26 07:50] LABS: HEMATOCRIT 49.6 % (32.4-45.2); HEMOGLOBIN 16.3 GM/dL (10.7-15.3); MCH 29.7 pg (25.7-33.7); MCHC 32.9 g/dl (32.0-36.0); MEAN PLT VOLUME 8.9 fl (7.5-11.1); PLATELET COUNT 169 10^3/uL (134-434); RBC 5.51 M/mm3 (3.60-5.2)
[2021-12-26] MEDS: ALBUTEROL SO4 2.5/IPRATROPIUM 0.5 INH SOL 3 ML VIAL.NEB. NEB SCH ×4 (08:15→20:39)
[2021-12-26 08:25] LABS: CALCIUM 8.6 mg/dL (8.5-10.1)
[2021-12-26 08:26] LABS: ALBUMIN 2.8 g/dl (3.4-5.0); BLOOD UREA NITROGEN 24.4 mg/dL (7-18); MAGNESIUM 2.7 mg/dL (1.8-2.4)
[2021-12-26 08:27] LABS: PHOSPHOROUS 3.4 mg/dL (2.5-4.9); TOT PROT 6.3 g/dl (6.4-8.2)
[2021-12-26 08:28] LABS: BILIRUBIN,TOTAL 0.5 mg/dL (0.2-1)
[2021-12-26 08:29] LABS: CREATININE 0.6 mg/dL (0.55-1.3)
[2021-12-26] MEDS: ENOXAPARIN NA (PORCINE) 40 MG/0.4 ML DISP.SYRIN SQ SCH (09:26)
[2021-12-26] MEDS: PANTOPRAZOLE SODIUM 40 MG VIAL IVPUSH SCH (09:26)
[2021-12-26] MEDS: MUPIROCIN 2% TOPICAL OINTMENT FOR DECOLONIZATION NS SCH ×2 (09:29→22:02)
[2021-12-26] MEDS: SODIUM CHLORIDE 1,000 ML IV SCH ×2 (13:25→17:56)
[2021-12-26] MEDS: DEXMEDETOMIDINE IN 0.9 % NACL 400 MCG/100 ML VIAL IVPB SCH (13:26)
[2021-12-26] MEDS: CHLORHEXIDINE GLUCONATE 4% CLEANSER FOR DECOLONIZATION TP SCH (22:02)
[2021-12-26] MEDS ORDERED: QUEtiapine FUMARATE 25 MG TABLET PO ONE (23:49)
[2021-12-27] MEDS: methylPREDNISolone NA SUCC 40 MG/1 ML VIAL IVPUSH SCH ×3 (01:10→18:07)
[2021-12-27] MEDS: PIPERACILLIN/TAZOB 3.375 GM 3.375 GM in DEXTROSE 5%-WATER - 50 ML IVPB SCH ×2 (01:10→10:27)
[2021-12-27 07:29] LABS: HEMOGLOBIN 14.1 GM/dL (10.7-15.3); MCH 29.4 pg (25.7-33.7); MCHC 32.7 g/dl (32.0-36.0); MEAN CELL VOLUME 89.9 fl (80-96); MEAN PLT VOLUME 8.4 fl (7.5-11.1); PLATELET COUNT 146 10^3/uL (134-434); RBC 4.78 M/mm3 (3.60-5.2); RDW 16.8 % (11.6-15.6); WHITE BLOOD COUNT 11.4 K/mm3 (4.0-10.0)
[2021-12-27 07:44] LABS: ALBUMIN 2.5 g/dl (3.4-5.0); CALCIUM 8.8 mg/dL (8.5-10.1); MAGNESIUM 2.2 mg/dL (1.8-2.4)
[2021-12-27 07:45] LABS: BLOOD UREA NITROGEN 26.3 mg/dL (7-18)
[2021-12-27 07:47] LABS: CREATININE 0.5 mg/dL (0.55-1.3); PHOSPHOROUS 1.9 mg/dL (2.5-4.9)
[2021-12-27 07:49] LABS: BILIRUBIN,TOTAL 0.5 mg/dL (0.2-1); TOT PROT 5.3 g/dl (6.4-8.2)
[2021-12-27] MEDS: ALBUTEROL SO4 2.5/IPRATROPIUM 0.5 INH SOL 3 ML VIAL.NEB. NEB SCH ×4 (08:29→20:33)
[2021-12-27] MEDS: SODIUM CHLORIDE 1,000 ML IV SCH (10:27)
[2021-12-27] MEDS: ENOXAPARIN NA (PORCINE) 40 MG/0.4 ML DISP.SYRIN SQ SCH (10:27)
[2021-12-27] MEDS: PANTOPRAZOLE SODIUM 40 MG VIAL IVPUSH SCH (10:27)
[2021-12-27] MEDS: MUPIROCIN 2% TOPICAL OINTMENT FOR DECOLONIZATION NS SCH ×2 (10:30→21:16)
[2021-12-27] MEDS: ERTAPENEM SODIUM 1 GM in SODIUM CHLORIDE 50 ML IVPB SCH (10:58)
[2021-12-27] MEDS ORDERED: DEXMEDETOMIDINE IN 0.9 % NACL 400 MCG/100 ML VIAL IVPB SCH (20:45)
[2021-12-27] MEDS: CHLORHEXIDINE GLUCONATE 4% CLEANSER FOR DECOLONIZATION TP SCH (21:16)
[2021-12-28] MEDS: methylPREDNISolone NA SUCC 40 MG/1 ML VIAL IVPUSH SCH ×3 (01:24→18:31)
[2021-12-28 07:30] LABS: HEMATOCRIT 46.4 % (32.4-45.2); HEMOGLOBIN 15.3 GM/dL (10.7-15.3); MCH 29.8 pg (25.7-33.7); MCHC 32.9 g/dl (32.0-36.0); MEAN CELL VOLUME 90.7 fl (80-96); MEAN PLT VOLUME 8.4 fl (7.5-11.1); PLATELET COUNT 149 10^3/uL (134-434); RBC 5.12 M/mm3 (3.60-5.2); RDW 16.8 % (11.6-15.6); WHITE BLOOD COUNT 8.5 K/mm3 (4.0-10.0)
[2021-12-28 07:51] LABS: CALCIUM 9.1 mg/dL (8.5-10.1)
[2021-12-28 07:52] LABS: ALBUMIN 2.6 g/dl (3.4-5.0); BLOOD UREA NITROGEN 30.7 mg/dL (7-18); MAGNESIUM 2.3 mg/dL (1.8-2.4)
[2021-12-28 07:55] LABS: CREATININE 0.6 mg/dL (0.55-1.3); PHOSPHOROUS 2.8 mg/dL (2.5-4.9)
[2021-12-28 07:56] LABS: BILIRUBIN,TOTAL 0.4 mg/dL (0.2-1); TOT PROT 5.9 g/dl (6.4-8.2)
[2021-12-28] MEDS: ALBUTEROL SO4 2.5/IPRATROPIUM 0.5 INH SOL 3 ML VIAL.NEB. NEB SCH ×4 (08:00→20:10)
[2021-12-28] MEDS: ALPRAZolam 0.25 MG TABLET PO PRN (09:51)
[2021-12-28] MEDS: QUEtiapine FUMARATE 25 MG TABLET PO SCH (09:52)
[2021-12-28] MEDS: PANTOPRAZOLE SODIUM 40 MG VIAL IVPUSH SCH (09:52)
[2021-12-28] MEDS: ENOXAPARIN NA (PORCINE) 40 MG/0.4 ML DISP.SYRIN SQ SCH (09:59)
[2021-12-28] MEDS: ERTAPENEM SODIUM 1 GM in SODIUM CHLORIDE 50 ML IVPB SCH (09:59)
[2021-12-28] MEDS: MUPIROCIN 2% TOPICAL OINTMENT FOR DECOLONIZATION NS SCH ×2 (10:00→21:38)
[2021-12-28] MEDS ORDERED: FUROSEMIDE 40 MG/4 ML INJECTABLE VIAL IVPUSH ONE ×2 (19:48→20:13)
[2021-12-28] MEDS ORDERED: FUROSEMIDE 40 MG/4 ML INJECTABLE VIAL ONE (20:10)
[2021-12-28] MEDS ORDERED: METOPROLOL TARTRATE 5 MG/5 ML VIAL ONE (20:10)
[2021-12-28] MEDS: DEXMEDETOMIDINE IN 0.9 % NACL 400 MCG/100 ML VIAL IVPB SCH (21:08)
[2021-12-28] MEDS: CHLORHEXIDINE GLUCONATE 4% CLEANSER FOR DECOLONIZATION TP SCH (21:38)
[2021-12-29] MEDS: methylPREDNISolone NA SUCC 40 MG/1 ML VIAL IVPUSH SCH ×3 (01:04→17:12)
[2021-12-29] MEDS: ALPRAZolam 0.25 MG TABLET PO PRN (07:24)
[2021-12-29 07:50] LABS: HEMATOCRIT 46.5 % (32.4-45.2); HEMOGLOBIN 15.4 GM/dL (10.7-15.3); MCH 29.9 pg (25.7-33.7); MCHC 33.1 g/dl (32.0-36.0); MEAN CELL VOLUME 90.5 fl (80-96); MEAN PLT VOLUME 8.4 fl (7.5-11.1); PLATELET COUNT 156 10^3/uL (134-434); RBC 5.14 M/mm3 (3.60-5.2); RDW 17.1 % (11.6-15.6); WHITE BLOOD COUNT 8.2 K/mm3 (4.0-10.0)
[2021-12-29 08:13] LABS: ALBUMIN 2.4 g/dl (3.4-5.0); CALCIUM 8.8 mg/dL (8.5-10.1)
[2021-12-29 08:14] LABS: MAGNESIUM 1.8 mg/dL (1.8-2.4)
[2021-12-29 08:16] LABS: CREATININE 0.7 mg/dL (0.55-1.3)
[2021-12-29 08:18] LABS: BILIRUBIN,TOTAL 0.4 mg/dL (0.2-1); TOT PROT 5.3 g/dl (6.4-8.2)
[2021-12-29] MEDS: ALBUTEROL SO4 2.5/IPRATROPIUM 0.5 INH SOL 3 ML VIAL.NEB. NEB SCH ×4 (08:25→20:35)
[2021-12-29] MEDS: ERTAPENEM SODIUM 1 GM in SODIUM CHLORIDE 50 ML IVPB SCH (09:22)
[2021-12-29] MEDS: MUPIROCIN 2% TOPICAL OINTMENT FOR DECOLONIZATION NS SCH (09:22)
[2021-12-29] MEDS: ENOXAPARIN NA (PORCINE) 40 MG/0.4 ML DISP.SYRIN SQ SCH (09:23)
[2021-12-29] MEDS: QUEtiapine FUMARATE 25 MG TABLET PO SCH (09:24)
[2021-12-29] MEDS: PANTOPRAZOLE SODIUM 40 MG VIAL IVPUSH SCH (09:24)
[2021-12-29 11:09] LABS: ANISOCYTOSIS 0; HELMET CELLS 0; HOWELL-JOLLY BODIES 0; MACROCYTOSIS 0; OVALOCYTE 0; ROULEAU 0; SICKELED CELLS 0; TARGET CELLS 0; TEAR DROP CELLS 0; TOXIC GRANULATION 0
[2021-12-29] MEDS ORDERED: NYSTATIN POWDER 100,000 UNITS/GM - 15 GM TOPICAL POWDER TP ONE (17:46)
[2021-12-29] MEDS: DEXMEDETOMIDINE IN 0.9 % NACL 400 MCG/100 ML VIAL IVPB SCH (21:24)
[2021-12-29] MEDS: CHLORHEXIDINE GLUCONATE 4% CLEANSER FOR DECOLONIZATION TP SCH (21:24)
[2021-12-29] MEDS: MELATONIN 5 MG TABLETS PO SCH (23:14)
[2021-12-30] MEDS: methylPREDNISolone NA SUCC 40 MG/1 ML VIAL IVPUSH SCH ×3 (01:22→17:47)
[2021-12-30] MEDS: ALBUTEROL SO4 2.5/IPRATROPIUM 0.5 INH SOL 3 ML VIAL.NEB. NEB SCH ×4 (07:45→20:30)
[2021-12-30 08:23] LABS: HEMATOCRIT 49.6 % (32.4-45.2); HEMOGLOBIN 15.9 GM/dL (10.7-15.3); MCH 29.2 pg (25.7-33.7); MCHC 32.2 g/dl (32.0-36.0); MEAN CELL VOLUME 90.9 fl (80-96); MEAN PLT VOLUME 8.4 fl (7.5-11.1); PLATELET COUNT 183 10^3/uL (134-434); RBC 5.45 M/mm3 (3.60-5.2); RDW 16.4 % (11.6-15.6); WHITE BLOOD COUNT 6.7 K/mm3 (4.0-10.0)
[2021-12-30 08:30] LABS: ALBUMIN 2.4 g/dl (3.4-5.0); BLOOD UREA NITROGEN 39.9 mg/dL (7-18); CALCIUM 8.8 mg/dL (8.5-10.1)
[2021-12-30 08:33] LABS: CREATININE 0.7 mg/dL (0.55-1.3); PHOSPHOROUS 2.9 mg/dL (2.5-4.9)
[2021-12-30 08:35] LABS: BILIRUBIN,TOTAL 0.3 mg/dL (0.2-1); TOT PROT 5.7 g/dl (6.4-8.2)
[2021-12-30] MEDS: ENOXAPARIN NA (PORCINE) 40 MG/0.4 ML DISP.SYRIN SQ SCH (09:25)
[2021-12-30] MEDS: QUEtiapine FUMARATE 25 MG TABLET PO SCH (09:25)
[2021-12-30] MEDS: ERTAPENEM SODIUM 1 GM in SODIUM CHLORIDE 50 ML IVPB SCH (09:25)
[2021-12-30] MEDS: PANTOPRAZOLE SODIUM 40 MG VIAL IVPUSH SCH (09:25)
[2021-12-30] MEDS ORDERED: TIGECYCLINE 100 MG in DEXTROSE 5%-WATER - 100 ML IVPB ONE (14:30)
[2021-12-30] MEDS ORDERED: ACETAMINOPHEN 325 MG TABLET (FP) PO ONE (17:11)
[2021-12-30] MEDS: MELATONIN 5 MG TABLETS PO SCH (22:02)
[2021-12-30] MEDS: DEXMEDETOMIDINE IN 0.9 % NACL 400 MCG/100 ML VIAL IVPB SCH (22:02)
[2021-12-30] MEDS: CHLORHEXIDINE GLUCONATE 4% CLEANSER FOR DECOLONIZATION TP SCH (22:02)
[2021-12-31] MEDS: methylPREDNISolone NA SUCC 40 MG/1 ML VIAL IVPUSH SCH ×4 (01:03→18:47)
[2021-12-31 06:54] LABS: HEMATOCRIT 51.7 % (32.4-45.2); HEMOGLOBIN 16.9 GM/dL (10.7-15.3); MCH 29.7 pg (25.7-33.7); MCHC 32.6 g/dl (32.0-36.0); MEAN PLT VOLUME 7.9 fl (7.5-11.1); PLATELET COUNT 181 10^3/uL (134-434); RBC 5.68 M/mm3 (3.60-5.2); RDW 16.6 % (11.6-15.6); WHITE BLOOD COUNT 8.9 K/mm3 (4.0-10.0)
[2021-12-31 07:16] LABS: ALBUMIN 2.3 g/dl (3.4-5.0); CALCIUM 8.9 mg/dL (8.5-10.1); MAGNESIUM 1.9 mg/dL (1.8-2.4)
[2021-12-31 07:17] LABS: BLOOD UREA NITROGEN 50.6 mg/dL (7-18)
[2021-12-31 07:19] LABS: CREATININE 0.6 mg/dL (0.55-1.3); PHOSPHOROUS 3.8 mg/dL (2.5-4.9)
[2021-12-31 07:21] LABS: BILIRUBIN,TOTAL 0.3 mg/dL (0.2-1); TOT PROT 5.7 g/dl (6.4-8.2)
[2021-12-31] MEDS: ALBUTEROL SO4 2.5/IPRATROPIUM 0.5 INH SOL 3 ML VIAL.NEB. NEB SCH ×4 (07:24→20:44)
[2021-12-31] MEDS: ENOXAPARIN NA (PORCINE) 40 MG/0.4 ML DISP.SYRIN SQ SCH (09:00)
[2021-12-31] MEDS: QUEtiapine FUMARATE 25 MG TABLET PO SCH (09:01)
[2021-12-31] MEDS: PANTOPRAZOLE SODIUM 40 MG VIAL IVPUSH SCH (09:01)
[2021-12-31] MEDS: TIGECYCLINE 50 MG in DEXTROSE 5%-WATER - 100 ML IVPB SCH ×2 (11:24→21:29)
[2021-12-31] MEDS: MELATONIN 5 MG TABLETS PO SCH ×2 (21:51→22:30)
[2021-12-31] MEDS ORDERED: CHLORHEXIDINE GLUCONATE 4% CLEANSER FOR DECOLONIZATION TP SCH (22:00)
[2022-01-01] MEDS: DEXMEDETOMIDINE IN 0.9 % NACL 400 MCG/100 ML VIAL IVPB SCH (04:09)
[2022-01-01 04:12] VITALS: RESP 20
[2022-01-01] MEDS: methylPREDNISolone NA SUCC 40 MG/1 ML VIAL IVPUSH SCH ×2 (05:30→22:47)
[2022-01-01] MEDS: ALBUTEROL SO4 2.5/IPRATROPIUM 0.5 INH SOL 3 ML VIAL.NEB. NEB SCH ×4 (07:53→19:47)
[2022-01-01] MEDS ORDERED: QUEtiapine FUMARATE 25 MG TABLET PO SCH (10:00)
[2022-01-01] MEDS: PANTOPRAZOLE SODIUM 40 MG VIAL IVPUSH SCH (10:03)
[2022-01-01] MEDS: ENOXAPARIN NA (PORCINE) 40 MG/0.4 ML DISP.SYRIN SQ SCH (10:03)
[2022-01-01 10:58] LABS: HEMOGLOBIN 16.6 GM/dL (10.7-15.3); MCHC 33.3 g/dl (32.0-36.0); MEAN CELL VOLUME 90.1 fl (80-96); MEAN PLT VOLUME 7.5 fl (7.5-11.1); PLATELET COUNT 242 10^3/uL (134-434); RBC 5.55 M/mm3 (3.60-5.2); RDW 16.7 % (11.6-15.6)
[2022-01-01 11:21] LABS: BLOOD UREA NITROGEN 63.2 mg/dL (7-18); CALCIUM 8.8 mg/dL (8.5-10.1)
[2022-01-01 11:22] LABS: ALBUMIN 2.4 g/dl (3.4-5.0)
[2022-01-01 11:24] LABS: CREATININE 0.7 mg/dL (0.55-1.3); PHOSPHOROUS 4.4 mg/dL (2.5-4.9)
[2022-01-01 11:26] LABS: BILIRUBIN,TOTAL 0.4 mg/dL (0.2-1); TOT PROT 5.9 g/dl (6.4-8.2)
[2022-01-01] MEDS: NYSTATIN 500,000 UNITS/5 ML SUSPENSION PO SCH ×2 (14:37→18:38)
[2022-01-01] MEDS ORDERED: ALPRAZolam 0.25 MG TABLET PO PRN (16:19)
[2022-01-01] MEDS: TIGECYCLINE 50 MG in DEXTROSE 5%-WATER - 100 ML IVPB SCH ×2 (18:35→22:14)
[2022-01-01] MEDS: NYSTATIN/TRIAMCINOLONE TOPICAL CREAM 15 GM TUBE TP SCH ×2 (18:38→22:26)
[2022-01-01] MEDS: MELATONIN 5 MG TABLETS PO SCH (22:15)
[2022-01-02] MEDS: NYSTATIN 500,000 UNITS/5 ML SUSPENSION PO SCH ×4 (00:38→17:52)
[2022-01-02] MEDS: methylPREDNISolone NA SUCC 40 MG/1 ML VIAL IVPUSH SCH ×2 (06:43→17:51)
[2022-01-02] MEDS: ALBUTEROL SO4 2.5/IPRATROPIUM 0.5 INH SOL 3 ML VIAL.NEB. NEB SCH ×4 (09:00→20:18)
[2022-01-02 09:56] LABS: HEMATOCRIT 53.1 % (32.4-45.2); MEAN CELL VOLUME 90.7 fl (80-96); MEAN PLT VOLUME 7.5 fl (7.5-11.1); PLATELET COUNT 282 10^3/uL (134-434); RBC 5.85 M/mm3 (3.60-5.2); RDW 16.3 % (11.6-15.6); WHITE BLOOD COUNT 11.6 K/mm3 (4.0-10.0)
[2022-01-02] MEDS: TIGECYCLINE 50 MG in DEXTROSE 5%-WATER - 100 ML IVPB SCH ×2 (09:56→21:15)
[2022-01-02] MEDS: NYSTATIN/TRIAMCINOLONE TOPICAL CREAM 15 GM TUBE TP SCH ×2 (09:57→21:20)
[2022-01-02] MEDS: ENOXAPARIN NA (PORCINE) 40 MG/0.4 ML DISP.SYRIN SQ SCH (09:57)
[2022-01-02] MEDS: PANTOPRAZOLE SODIUM 40 MG VIAL IVPUSH SCH (09:57)
[2022-01-02 10:13] LABS: ALBUMIN 2.4 g/dl (3.4-5.0); BLOOD UREA NITROGEN 61.8 mg/dL (7-18); MAGNESIUM 2.1 mg/dL (1.8-2.4)
[2022-01-02 10:16] LABS: CREATININE 0.7 mg/dL (0.55-1.3); PHOSPHOROUS 4.4 mg/dL (2.5-4.9)
[2022-01-02 10:18] LABS: BILIRUBIN,TOTAL 0.5 mg/dL (0.2-1); TOT PROT 5.7 g/dl (6.4-8.2)
[2022-01-02] MEDS: MELATONIN 5 MG TABLETS PO SCH (21:21)
[2022-01-02 22:51] VITALS: PULSE 94
[2022-01-03] MEDS: NYSTATIN 500,000 UNITS/5 ML SUSPENSION PO SCH ×2 (00:13→06:03)
[2022-01-03] MEDS: methylPREDNISolone NA SUCC 40 MG/1 ML VIAL IVPUSH SCH (06:03)
[2022-01-03 07:11] VITALS: BP 138/94; TEMP 98.4
[2022-01-03] MEDS: ALBUTEROL SO4 2.5/IPRATROPIUM 0.5 INH SOL 3 ML VIAL.NEB. NEB SCH ×2 (07:37→11:45)
[2022-01-03] MEDS: ENOXAPARIN NA (PORCINE) 40 MG/0.4 ML DISP.SYRIN SQ SCH (10:07)
[2022-01-03] MEDS: TIGECYCLINE 50 MG in DEXTROSE 5%-WATER - 100 ML IVPB SCH (10:07)
[2022-01-03] MEDS: PANTOPRAZOLE SODIUM 40 MG VIAL IVPUSH SCH (10:08)
[2022-01-03] MEDS: NYSTATIN/TRIAMCINOLONE TOPICAL CREAM 15 GM TUBE TP SCH (10:08)
== END 2022-01-03 12:35 | disposition home or self-care (01) | DRG 871 ==
LOC: JER 17:19 → JERBED 18:19 → JICU 20:10 → J8W 12-31 21:24
PROVIDERS: ADMIT Internal Medicine; ATTEND Internal Medicine
PROC: 5A1945Z Respiratory Ventilation, 24-96 Consecutive Hours (ICD-10-PCS; principal; 2021-12-24)
PROC: 0BH17EZ Insertion of Endotracheal Airway into Trachea, Via Natural or Artificial Opening (ICD-10-PCS; 2021-12-24)
PROC: 0DH67UZ Insertion of Feeding Device into Stomach, Via Natural or Artificial Opening (ICD-10-PCS; 2021-12-24)
PROC: 30233N1 Transfusion of Nonautologous Red Blood Cells into Peripheral Vein, Percutaneous Approach (ICD-10-PCS; 2021-12-24)
PROC: 05HN33Z Insertion of Infusion Device into Left Internal Jugular Vein, Percutaneous Approach (ICD-10-PCS; 2021-12-25)
PROC: 02HV33Z Insertion of Infusion Device into Superior Vena Cava, Percutaneous Approach (ICD-10-PCS; 2022-01-01)
PROC: B548ZZA Ultrasonography of Superior Vena Cava, Guidance (ICD-10-PCS; 2022-01-01)
DX: A41.9 Sepsis, unspecified organism (principal); J12.3 Human metapneumovirus pneumonia; J96.02 Acute respiratory failure with hypercapnia; J96.01 Acute respiratory failure with hypoxia; N39.0 Urinary tract infection, site not specified; D61.818 Other pancytopenia; I50.22 Chronic systolic (congestive) heart failure; E87.2 Acidosis; Z16.12 Extended spectrum beta lactamase (ESBL) resistance; J43.9 Emphysema, unspecified; D64.9 Anemia, unspecified; B96.20 Unspecified Escherichia coli [E. coli] as the cause of diseases classified elsewhere; I25.10 Atherosclerotic heart disease of native coronary artery without angina pectoris
CPT/HCPCS: 31500; 36415; 36430; 36569; 36600; 70450-TC; 71045-TC-FY; 71275-TC; 74018-TC-FY; 77001-TC-FY; 80048; 80053; 81003; 82803; 82962; 83605; 83735; 83880; 84100; 84443; 84484; 85025; 85027; 86850; 86900; 86901; 86922; 87040; 87086; 87186; 87324; 87449; 87633; 93005; 93010; 94002; 94640; 94660; 94761; 97116-GP; 97161-GP; 99291; C1751; C9803-CS; J3243; P9058; Q9967; U0003; U0005

== ENCOUNTER 2022-03-01 01:49 | Inpatient (IN) | payer OTHER, MEDICARE ==
[~2022-03-01 01:49] MED LIST changes: +FUROSEMIDE 40 MG/4 ML INJECTABLE VIAL IVPUSH ONE; -IRON SUCROSE INJECTION 200 MG in SODIUM CHLORIDE 100 ML IVPB ONE; +NITROGLYCERIN 50 MG/10 ML VIAL IVPB SCH; +diazePAM CARPU-JECT 10 MG/2 ML DISP.SYRIN IVPUSH ONE; +diazePAM CARPU-JECT 10 MG/2 ML DISP.SYRIN ONE
[2022-03-01] MEDS: ALBUTEROL SO4 2.5/IPRATROPIUM 0.5 INH SOL 3 ML VIAL.NEB. NEB SCH ×6 (01:50→12:00)
[2022-03-01] MEDS ORDERED: ACETAMINOPHEN 1000 MG/100 ML BAG IVPB ONE (01:57)
[2022-03-01] MEDS ORDERED: ACETAMINOPHEN INJECTION 100 ML IVPB ONE ×2 (02:04→20:17)
[2022-03-01] MEDS ORDERED: FUROSEMIDE 40 MG/4 ML INJECTABLE VIAL ONE ×2 (02:29→11:04)
[2022-03-01 02:39] LABS: BASO % 1.5 % (0-2.0); EOS % 1.4 % (0-4.5); HEMATOCRIT 43.6 % (32.4-45.2); HEMOGLOBIN 14.1 GM/dL (10.7-15.3); LYMPH % 13.9 % (8-40); MCH 29.3 pg (25.7-33.7); MCHC 32.3 g/dl (32.0-36.0); MEAN CELL VOLUME 90.7 fl (80-96); MONO % 6.7 % (3.8-10.2); NEUT % 76.5 % (42.8-82.8); PLATELET COUNT 468 10^3/uL (134-434); RDW 15.9 % (11.6-15.6); WHITE BLOOD COUNT 11.8 K/mm3 (4.0-10.0)
[2022-03-01 02:41] LABS: VENOUS O2 SATURATION 80.8 % (70-80)
[2022-03-01 02:43] LABS: VENOUS PH 7.154 (7.310-7.410)
[2022-03-01 02:45] LABS: INR 0.97 (0.83-1.09); PROTHROMBIN TIME (PATIENT) 11.1 SEC (9.7-13.0)
[2022-03-01 02:48] LABS: ACTIVATED PTT 30.6 SECONDS (25.2-36.5)
[2022-03-01 02:59] LABS: CHLORIDE 107 mmol/L (98-107); SODIUM 141 mmol/L (136-145)
[2022-03-01 03:01] LABS: CALCIUM 8.9 mg/dL (8.5-10.1)
[2022-03-01 03:02] LABS: ALBUMIN 3.5 g/dl (3.4-5.0); ANION GAP 6 MMOL/L (8-16); BLOOD UREA NITROGEN 24.2 mg/dL (7-18); CO2 28 mmol/L (21-32); GLUCOSE,RANDOM 169 mg/dL (74-106)
[2022-03-01 03:05] LABS: CREATININE 0.6 mg/dL (0.55-1.3); SGOT/AST 80 U/L (15-37); SGPT/ALT 57 U/L (13-61)
[2022-03-01 03:06] LABS: BILIRUBIN,TOTAL 0.5 mg/dL (0.2-1)
[2022-03-01 03:08] LABS: ALK PHOS 109 U/L (45-117)
[2022-03-01 03:10] LABS: N-TERMINAL BNP 12551.6 pg/ml (5-450)
[2022-03-01] MEDS ORDERED: ASPIRIN 81 MG CHEWABLE TABLETS PO ONE (04:20)
[2022-03-01 04:46] LABS: ARTERIAL BLD GAS O2 SATURATION 94.8 % (95-98); ARTERIAL BLOOD GAS BASE EXCESS 1.4 mmol/L (-2-2); ARTERIAL BLOOD GAS PO2 78.7 mmHg (80-100); ARTERIAL BLOOD GAS pH 7.344 (7.350-7.450)
[2022-03-01 04:49] LABS: ALLENS TEST POSITIVE
[2022-03-01 04:50] LABS: VENT MODE S/T; VENT RATE 16
[2022-03-01] MEDS ORDERED: ASPIRIN 81 MG CHEWABLE TABLETS ONE (04:57)
[2022-03-01] MEDS ORDERED: VANCOMYCIN/WATER FOR INJ (PEG) 1,000 MG/200 ML BAG IVPB ONE ×2 (07:30→07:50)
[2022-03-01] MEDS ORDERED: PIPERACILLIN/TAZOB 4.5 GM 4.5 GM/100 ML BAG IVPB ONE (07:49)
[2022-03-01 07:53] LABS: EPI CELLS 7 /uL (0-25.1); HYALINE CASTS 0 /uL (0-3.1); URINE APPEARANCE CLOUDY; URINE BACTERIA >9,000 /uL (0-1359); URINE BILIRUBIN NEGATIVE (NEGATIVE); URINE COLOR YELLOW; URINE GLUCOSE (UA) NEGATIVE (NEGATIVE); URINE KETONE NEGATIVE (NEGATIVE); URINE LEUK ESTERASE 3+ (NEGATIVE); URINE NITRITE POSITIVE (NEGATIVE); URINE PROTEIN TRACE (NEGATIVE); URINE RBC 37 /uL (0-23.9); URINE UROBILINOGEN 0.2 mg/dL (0.2-1.0); URINE WBC 2945 /uL (0-25.8)
[2022-03-01] MEDS ORDERED: PIPERACILLIN/TAZOB 4.5 GM 4.5 GM in DEXTROSE 5%-WATER 100 ML IVPB ONE (08:00)
[2022-03-01] MEDS ORDERED: ALBUTEROL SO4 2.5/IPRATROPIUM 0.5 INH SOL 3 ML VIAL.NEB. NEB ONE (08:29)
[2022-03-01] MEDS ORDERED: ALPRAZolam 0.25 MG TABLET ONE ×2 (09:16→17:32)
[2022-03-01] MEDS: ACETAMINOPHEN 1000 MG/100 ML BAG IVPB PRN ×2 (09:26→22:26)
[2022-03-01] MEDS: ALPRAZolam 0.25 MG TABLET PO PRN ×2 (09:27→17:36)
[2022-03-01] MEDS ORDERED: ENOXAPARIN NA (PORCINE) 60 MG/0.6 ML DISP.SYRIN SQ ONE (09:45)
[2022-03-01] MEDS ORDERED: methylPREDNISolone NA SUCC 40 MG/1 ML VIAL IVPUSH SCH (10:00)
[2022-03-01] MEDS ORDERED: PANTOPRAZOLE 40 MG TABLET PO ONE (11:04)
[2022-03-01] MEDS: BUDESONIDE/FORMETEROL FUMARATE 160/4.5 mcg INHALER IH SCH (11:15)
[2022-03-01] MEDS: FUROSEMIDE 40 MG/4 ML INJECTABLE VIAL IVPUSH SCH (11:15)
[2022-03-01] MEDS: PANTOPRAZOLE 40 MG TABLET PO SCH (11:15)
[2022-03-01] MEDS ORDERED: ALBUTEROL SO4 2.5/IPRATROPIUM 0.5 INH SOL 3 ML VIAL.NEB. NEB PRN (14:12)
[2022-03-01] MEDS: SUMAtriptan SUCCINATE 25 MG TABLET PO PRN (17:36)
[2022-03-01] MEDS ORDERED: MELATONIN 5 MG TABLETS ONE (22:32)
[2022-03-01] MEDS ORDERED: ERTAPENEM SODIUM 1 GM VIAL ONE (22:32)
[2022-03-01] MEDS: MELATONIN 5 MG TABLETS PO SCH (22:40)
[2022-03-01] MEDS: ERTAPENEM SODIUM 1 GM in SODIUM CHLORIDE 50 ML IVPB SCH (23:02)
[2022-03-02] MEDS ORDERED: ACETAMINOPHEN INJECTION 100 ML IVPB ONE (05:07)
[2022-03-02] MEDS: ACETAMINOPHEN 1000 MG/100 ML BAG IVPB PRN (05:15)
[2022-03-02 08:25] LABS: BASO % 0.5 % (0-2.0); EOS % 0.6 % (0-4.5); HEMATOCRIT 38.1 % (32.4-45.2); HEMOGLOBIN 12.6 GM/dL (10.7-15.3); LYMPH % 10.9 % (8-40); MCH 30.1 pg (25.7-33.7); MCHC 33.2 g/dl (32.0-36.0); MEAN CELL VOLUME 90.9 fl (80-96); MEAN PLT VOLUME 8.4 fl (7.5-11.1); MONO % 7.4 % (3.8-10.2); NEUT % 80.6 % (42.8-82.8); PLATELET COUNT 256 10^3/uL (134-434); RBC 4.19 M/mm3 (3.60-5.2); RDW 15.9 % (11.6-15.6); WHITE BLOOD COUNT 8.2 K/mm3 (4.0-10.0)
[2022-03-02 08:52] LABS: BLOOD UREA NITROGEN 32.5 mg/dL (7-18); CALCIUM 8.9 mg/dL (8.5-10.1)
[2022-03-02 08:55] LABS: CREATININE 0.7 mg/dL (0.55-1.3)
[2022-03-02 08:57] LABS: BILIRUBIN,TOTAL 0.3 mg/dL (0.2-1); TOT PROT 5.8 g/dl (6.4-8.2)
[2022-03-02] MEDS ORDERED: PANTOPRAZOLE 40 MG TABLET PO ONE (10:27)
[2022-03-02] MEDS ORDERED: ERTAPENEM SODIUM 1 GM VIAL ONE (10:27)
[2022-03-02] MEDS ORDERED: FUROSEMIDE 40 MG/4 ML INJECTABLE VIAL ONE (10:27)
[2022-03-02] MEDS ORDERED: ENOXAPARIN NA (PORCINE) 40 MG/0.4 ML DISP.SYRIN SQ ONE (10:35)
[2022-03-02] MEDS: FUROSEMIDE 40 MG/4 ML INJECTABLE VIAL IVPUSH SCH (10:48)
[2022-03-02] MEDS: PANTOPRAZOLE 40 MG TABLET PO SCH (10:48)
[2022-03-02] MEDS: BUDESONIDE/FORMETEROL FUMARATE 160/4.5 mcg INHALER IH SCH (10:48)
[2022-03-02] MEDS: ENOXAPARIN NA (PORCINE) 40 MG/0.4 ML DISP.SYRIN SQ SCH (10:48)
[2022-03-02] MEDS: ERTAPENEM SODIUM 1 GM in SODIUM CHLORIDE 50 ML IVPB SCH (10:48)
[2022-03-02] MEDS ORDERED: ALPRAZolam 0.25 MG TABLET ONE (16:46)
[2022-03-02] MEDS: SUMAtriptan SUCCINATE 25 MG TABLET PO PRN (16:54)
[2022-03-02] MEDS: ALPRAZolam 0.25 MG TABLET PO PRN (16:54)
[2022-03-02] MEDS ORDERED: MELATONIN 5 MG TABLETS ONE (21:13)
[2022-03-02] MEDS: MELATONIN 5 MG TABLETS PO SCH (21:18)
[2022-03-03] MEDS: ACETAMINOPHEN 1000 MG/100 ML BAG IVPB PRN ×2 (09:24→17:13)
[2022-03-03] MEDS: FUROSEMIDE 40 MG/4 ML INJECTABLE VIAL IVPUSH SCH (09:24)
[2022-03-03] MEDS: ERTAPENEM SODIUM 1 GM in SODIUM CHLORIDE 50 ML IVPB SCH (09:46)
[2022-03-03] MEDS: PANTOPRAZOLE 40 MG TABLET PO SCH (09:54)
[2022-03-03] MEDS: ENOXAPARIN NA (PORCINE) 40 MG/0.4 ML DISP.SYRIN SQ SCH (09:54)
[2022-03-03] MEDS: BUDESONIDE/FORMETEROL FUMARATE 160/4.5 mcg INHALER IH SCH (12:01)
[2022-03-03] MEDS: SUMAtriptan SUCCINATE 25 MG TABLET PO PRN (14:09)
[2022-03-03] MEDS: ALPRAZolam 0.25 MG TABLET PO PRN (19:19)
[2022-03-03] MEDS: MELATONIN 5 MG TABLETS PO SCH (22:43)
[2022-03-04 08:36] LABS: BASO % 0.4 % (0-2.0); EOS % 1.9 % (0-4.5); HEMATOCRIT 41.3 % (32.4-45.2); HEMOGLOBIN 13.8 GM/dL (10.7-15.3); LYMPH % 6.1 % (8-40); MCH 30.2 pg (25.7-33.7); MCHC 33.4 g/dl (32.0-36.0); MEAN CELL VOLUME 90.5 fl (80-96); MEAN PLT VOLUME 7.9 fl (7.5-11.1); NEUT % 85.6 % (42.8-82.8); PLATELET COUNT 260 10^3/uL (134-434); RBC 4.56 M/mm3 (3.60-5.2); RDW 15.6 % (11.6-15.6); WHITE BLOOD COUNT 9.7 K/mm3 (4.0-10.0)
[2022-03-04 09:05] LABS: BLOOD UREA NITROGEN 22.1 mg/dL (7-18); CALCIUM 9.2 mg/dL (8.5-10.1)
[2022-03-04 09:07] LABS: CREATININE 0.4 mg/dL (0.55-1.3)
[2022-03-04 09:09] LABS: TOT PROT 6.1 g/dl (6.4-8.2)
[2022-03-04] MEDS: ERTAPENEM SODIUM 1 GM in SODIUM CHLORIDE 50 ML IVPB SCH (10:09)
[2022-03-04] MEDS: SUMAtriptan SUCCINATE 25 MG TABLET PO PRN (10:11)
[2022-03-04] MEDS: ENOXAPARIN NA (PORCINE) 40 MG/0.4 ML DISP.SYRIN SQ SCH (10:11)
[2022-03-04] MEDS: FUROSEMIDE 40 MG/4 ML INJECTABLE VIAL IVPUSH SCH (10:11)
[2022-03-04] MEDS: PANTOPRAZOLE 40 MG TABLET PO SCH (10:13)
[2022-03-04] MEDS: BUDESONIDE/FORMETEROL FUMARATE 160/4.5 mcg INHALER IH SCH (10:13)
[2022-03-04] MEDS: ACETAMINOPHEN 1000 MG/100 ML BAG IVPB PRN (16:29)
[2022-03-04 18:08] LABS: ALLENS TEST POSITIVE; ARTERIAL BLD GAS O2 SATURATION 89.8 % (95-98); ARTERIAL BLOOD GAS BASE EXCESS 5.2 mmol/L (-2-2); ARTERIAL BLOOD GAS PO2 55.1 mmHg (80-100); ARTERIAL BLOOD GAS pH 7.446 (7.350-7.450)
[2022-03-04] MEDS: MELATONIN 5 MG TABLETS PO SCH (21:14)
[2022-03-04] MEDS: ALPRAZolam 0.25 MG TABLET PO PRN (21:14)
[2022-03-05] MEDS: ERTAPENEM SODIUM 1 GM in SODIUM CHLORIDE 50 ML IVPB SCH (10:31)
[2022-03-05] MEDS: PANTOPRAZOLE 40 MG TABLET PO SCH (10:31)
[2022-03-05] MEDS: BUDESONIDE/FORMETEROL FUMARATE 160/4.5 mcg INHALER IH SCH ×2 (10:34→22:35)
[2022-03-05] MEDS: FUROSEMIDE 40 MG/4 ML INJECTABLE VIAL IVPUSH SCH (10:34)
[2022-03-05] MEDS: ENOXAPARIN NA (PORCINE) 40 MG/0.4 ML DISP.SYRIN SQ SCH (10:34)
[2022-03-05] MEDS: ALPRAZolam 0.25 MG TABLET PO PRN (10:37)
[2022-03-05] MEDS: ACETAMINOPHEN 1000 MG/100 ML BAG IVPB PRN (12:24)
[2022-03-05] MEDS ORDERED: ALPRAZolam 0.25 MG TABLET PO PRN (13:11)
[2022-03-05] MEDS ORDERED: ACETAMINOPHEN 1000 MG/100 ML BAG IVPB PRN (19:30)
[2022-03-05] MEDS: MELATONIN 5 MG TABLETS PO SCH (22:34)
[2022-03-06] MEDS: ERTAPENEM SODIUM 1 GM in SODIUM CHLORIDE 50 ML IVPB SCH (09:36)
[2022-03-06] MEDS: FUROSEMIDE 40 MG/4 ML INJECTABLE VIAL IVPUSH SCH (09:36)
[2022-03-06] MEDS: PANTOPRAZOLE 40 MG TABLET PO SCH (09:37)
[2022-03-06] MEDS: BUDESONIDE/FORMETEROL FUMARATE 160/4.5 mcg INHALER IH SCH (09:37)
[2022-03-06] MEDS ORDERED: BUPIVACAINE HCL/PF 0.5% (5MG/ML) 10 ML VIAL ONE (14:20)
[2022-03-06] MEDS ORDERED: ceFAZolin SODIUM 1 GM VIAL ONE (15:46)
[2022-03-06] MEDS ORDERED: PROPOFOL 20 ML ONE (16:07)
[2022-03-06] MEDS ORDERED: ACETAMINOPHEN 1000 MG/100 ML BAG IVPB PRN (17:32)
[2022-03-06] MEDS ORDERED: SUMAtriptan SUCCINATE 25 MG TABLET PO PRN (17:32)
[2022-03-06] MEDS ORDERED: ALBUTEROL SO4 2.5/IPRATROPIUM 0.5 INH SOL 3 ML VIAL.NEB. NEB PRN (17:32)
[2022-03-06] MEDS ORDERED: ONDANSETRON 4 MG/2 ML VIAL IVPUSH PRN (17:40)
[2022-03-06] MEDS ORDERED: PROMETHAZINE HCL 25 MG/1 ML VIAL IVPUSH PRN (17:40)
[2022-03-06] MEDS ORDERED: LACTATED RINGERS SOLUTION 1,000 ML IV SCH (17:45)
[2022-03-06] MEDS: ACETAMINOPHEN 1000 MG/100 ML BAG IVPB PRN (20:36)
[2022-03-06] MEDS: MELATONIN 5 MG TABLETS PO SCH (21:17)
[2022-03-06] MEDS: ALPRAZolam 0.25 MG TABLET PO PRN (21:17)
[2022-03-06] MEDS ORDERED: BUDESONIDE/FORMETEROL FUMARATE 160/4.5 mcg INHALER IH SCH (22:00)
[2022-03-07] MEDS ORDERED: ceFAZolin SODIUM 1 GM VIAL ONE (01:18)
[2022-03-07] MEDS: CEFAZOLIN 1 GM in DEXTROSE 5%-WATER - 50 ML IVPB SCH ×3 (01:23→17:00)
[2022-03-07] MEDS: ACETAMINOPHEN 325 MG TABLET (FP) PO PRN ×2 (03:43→22:15)
[2022-03-07] MEDS: BUDESONIDE/FORMETEROL FUMARATE 160/4.5 mcg INHALER IH SCH ×2 (07:38→09:57)
[2022-03-07] MEDS: CHOLECALCIFEROL (VIT D3) 1,000 UNIT (25 MCG) TABLET PO SCH (09:56)
[2022-03-07] MEDS: ALPRAZolam 0.25 MG TABLET PO PRN ×2 (09:56→22:14)
[2022-03-07] MEDS: ENOXAPARIN NA (PORCINE) 40 MG/0.4 ML DISP.SYRIN SQ SCH (09:56)
[2022-03-07] MEDS: PANTOPRAZOLE 40 MG TABLET PO SCH (09:56)
[2022-03-07] MEDS ORDERED: FUROSEMIDE 40 MG/4 ML INJECTABLE VIAL IVPUSH SCH (10:00)
[2022-03-07] MEDS: ACETAMINOPHEN 1000 MG/100 ML BAG IVPB PRN ×2 (11:44→18:29)
[2022-03-07 12:03] LABS: BASO % 0.7 % (0-2.0); EOS % 0.8 % (0-4.5); HEMOGLOBIN 12.7 GM/dL (10.7-15.3); LYMPH % 5.3 % (8-40); MCH 28.8 pg (25.7-33.7); MCHC 31.8 g/dl (32.0-36.0); MEAN CELL VOLUME 90.6 fl (80-96); MEAN PLT VOLUME 8.6 fl (7.5-11.1); MONO % 9.2 % (3.8-10.2); PLATELET COUNT 339 10^3/uL (134-434); RBC 4.42 M/mm3 (3.60-5.2); RDW 14.9 % (11.6-15.6); WHITE BLOOD COUNT 16.9 K/mm3 (4.0-10.0)
[2022-03-07 12:25] LABS: CALCIUM 9.7 mg/dL (8.5-10.1)
[2022-03-07 12:26] LABS: ALBUMIN 2.7 g/dl (3.4-5.0); BLOOD UREA NITROGEN 27.1 mg/dL (7-18)
[2022-03-07 12:29] LABS: CREATININE 0.6 mg/dL (0.55-1.3)
[2022-03-07 12:30] LABS: TOT PROT 5.7 g/dl (6.4-8.2)
[2022-03-07 12:31] LABS: BILIRUBIN,TOTAL 0.6 mg/dL (0.2-1)
[2022-03-07 23:32] VITALS: BMI 23.6
[2022-03-08] MEDS: CEFAZOLIN 1 GM in DEXTROSE 5%-WATER - 50 ML IVPB SCH (01:24)
[2022-03-08] MEDS: BUDESONIDE/FORMETEROL FUMARATE 160/4.5 mcg INHALER IH SCH ×3 (07:53→21:10)
[2022-03-08] MEDS: MELATONIN 5 MG TABLETS PO SCH ×2 (07:53→21:08)
[2022-03-08 08:26] LABS: BASO % 0.3 % (0-2.0); EOS % 1.1 % (0-4.5); HEMATOCRIT 35.6 % (32.4-45.2); HEMOGLOBIN 11.8 GM/dL (10.7-15.3); LYMPH % 4.4 % (8-40); MCHC 33.3 g/dl (32.0-36.0); MEAN CELL VOLUME 90.3 fl (80-96); MEAN PLT VOLUME 8.3 fl (7.5-11.1); MONO % 7.2 % (3.8-10.2); PLATELET COUNT 270 10^3/uL (134-434); RBC 3.95 M/mm3 (3.60-5.2); RDW 14.4 % (11.6-15.6); WHITE BLOOD COUNT 11.5 K/mm3 (4.0-10.0)
[2022-03-08] MEDS ORDERED: POTASSIUM CHLORIDE ORAL LIQUID 20 MEQ/15 ML PO ONE (09:50)
[2022-03-08] MEDS: ENOXAPARIN NA (PORCINE) 40 MG/0.4 ML DISP.SYRIN SQ SCH (10:24)
[2022-03-08] MEDS: PANTOPRAZOLE 40 MG TABLET PO SCH (10:26)
[2022-03-08] MEDS: CHOLECALCIFEROL (VIT D3) 1,000 UNIT (25 MCG) TABLET PO SCH (10:26)
[2022-03-08] MEDS ORDERED: LOPERAMIDE HCL 2 MG CAPSULE PO ONE (15:42)
[2022-03-08] MEDS: ALPRAZolam 0.25 MG TABLET PO PRN (21:09)
[2022-03-08] MEDS: ACETAMINOPHEN 325 MG TABLET (FP) PO PRN (21:12)
[2022-03-09] MEDS: PANTOPRAZOLE 40 MG TABLET PO SCH (10:25)
[2022-03-09] MEDS: CHOLECALCIFEROL (VIT D3) 1,000 UNIT (25 MCG) TABLET PO SCH (10:25)
[2022-03-09] MEDS: ENOXAPARIN NA (PORCINE) 40 MG/0.4 ML DISP.SYRIN SQ SCH (10:26)
[2022-03-09] MEDS: BUDESONIDE/FORMETEROL FUMARATE 160/4.5 mcg INHALER IH SCH ×2 (10:26→22:06)
[2022-03-09] MEDS ORDERED: ACETAMINOPHEN 1000 MG/100 ML BAG IVPB ONE (13:30)
[2022-03-09] MEDS: ASPIRIN COATED 81 MG TABLET.EC PO SCH (13:44)
[2022-03-09] MEDS: metoPROLOL SUCCINATE 25 MG TAB.SR.24H (FP) PO SCH (17:23)
[2022-03-09] MEDS: MELATONIN 5 MG TABLETS PO SCH (22:06)
[2022-03-09] MEDS: ALPRAZolam 0.25 MG TABLET PO PRN (23:07)
[2022-03-10 08:27] LABS: HEMOGLOBIN 11.2 GM/dL (10.7-15.3); MCH 29.8 pg (25.7-33.7); MEAN CELL VOLUME 90.2 fl (80-96); MEAN PLT VOLUME 7.9 fl (7.5-11.1); PLATELET COUNT 392 10^3/uL (134-434); RBC 3.77 M/mm3 (3.60-5.2); RDW 14.1 % (11.6-15.6); WHITE BLOOD COUNT 7.7 K/mm3 (4.0-10.0)
[2022-03-10] MEDS: BUDESONIDE/FORMETEROL FUMARATE 160/4.5 mcg INHALER IH SCH ×2 (09:50→21:12)
[2022-03-10] MEDS: ENOXAPARIN NA (PORCINE) 40 MG/0.4 ML DISP.SYRIN SQ SCH (09:50)
[2022-03-10] MEDS: PANTOPRAZOLE 40 MG TABLET PO SCH (09:51)
[2022-03-10] MEDS: CHOLECALCIFEROL (VIT D3) 1,000 UNIT (25 MCG) TABLET PO SCH (09:51)
[2022-03-10] MEDS: ASPIRIN COATED 81 MG TABLET.EC PO SCH (09:51)
[2022-03-10] MEDS: metoPROLOL SUCCINATE 25 MG TAB.SR.24H (FP) PO SCH (09:51)
[2022-03-10] MEDS: ACETAMINOPHEN 325 MG TABLET (FP) PO PRN ×3 (09:55→21:10)
[2022-03-10] MEDS: ALPRAZolam 0.25 MG TABLET PO PRN (21:10)
[2022-03-10] MEDS: MELATONIN 5 MG TABLETS PO SCH (22:16)
[2022-03-11] MEDS: ACETAMINOPHEN 325 MG TABLET (FP) PO PRN ×2 (10:01→18:36)
[2022-03-11] MEDS: CHOLECALCIFEROL (VIT D3) 1,000 UNIT (25 MCG) TABLET PO SCH (10:01)
[2022-03-11] MEDS: metoPROLOL SUCCINATE 25 MG TAB.SR.24H (FP) PO SCH (10:01)
[2022-03-11] MEDS: PANTOPRAZOLE 40 MG TABLET PO SCH (10:01)
[2022-03-11] MEDS: ASPIRIN COATED 81 MG TABLET.EC PO SCH (10:01)
[2022-03-11] MEDS: ENOXAPARIN NA (PORCINE) 40 MG/0.4 ML DISP.SYRIN SQ SCH (10:02)
[2022-03-11] MEDS: BUDESONIDE/FORMETEROL FUMARATE 160/4.5 mcg INHALER IH SCH ×2 (10:03→21:40)
[2022-03-11] MEDS: MELATONIN 5 MG TABLETS PO SCH (21:41)
[2022-03-11] MEDS: ALPRAZolam 0.25 MG TABLET PO PRN (21:41)
[2022-03-11] MEDS: NYSTATIN/TRIAMCINOLONE TOPICAL CREAM 15 GM TUBE TP SCH (21:42)
[2022-03-12 03:35] VITALS: RESP 18
[2022-03-12] MEDS: ASPIRIN COATED 81 MG TABLET.EC PO SCH (10:48)
[2022-03-12] MEDS: BUDESONIDE/FORMETEROL FUMARATE 160/4.5 mcg INHALER IH SCH (10:48)
[2022-03-12] MEDS: NYSTATIN/TRIAMCINOLONE TOPICAL CREAM 15 GM TUBE TP SCH (10:48)
[2022-03-12] MEDS: PANTOPRAZOLE 40 MG TABLET PO SCH (10:48)
[2022-03-12] MEDS: ENOXAPARIN NA (PORCINE) 40 MG/0.4 ML DISP.SYRIN SQ SCH (10:48)
[2022-03-12] MEDS: metoPROLOL SUCCINATE 25 MG TAB.SR.24H (FP) PO SCH ×2 (10:49→11:07)
[2022-03-12] MEDS: CHOLECALCIFEROL (VIT D3) 1,000 UNIT (25 MCG) TABLET PO SCH (10:49)
[2022-03-12 14:46] VITALS: BP 104/49; PULSE 90; TEMP 97.6
== END 2022-03-12 12:54 | disposition home or self-care (01) | DRG 981 ==
LOC: JER 01:49 → JERBED 03:18 → J4W 03-03 02:48
PROVIDERS: ADMIT Internal Medicine; ATTEND Internal Medicine
PROC: 0QS706Z Reposition Left Upper Femur with Intramedullary Internal Fixation Device, Open Approach (ICD-10-PCS; principal; 2022-03-06 15:00)
DX: I11.0 Hypertensive heart disease with heart failure (principal); I21.A1 Myocardial infarction type 2; S72.145A Nondisplaced intertrochanteric fracture of left femur, initial encounter for closed fracture; I50.23 Acute on chronic systolic (congestive) heart failure; J81.0 Acute pulmonary edema; J96.21 Acute and chronic respiratory failure with hypoxia; J96.22 Acute and chronic respiratory failure with hypercapnia; J18.9 Pneumonia, unspecified organism; E87.29 Other acidosis; J44.1 Chronic obstructive pulmonary disease with (acute) exacerbation; N39.0 Urinary tract infection, site not specified; R64 Cachexia; Z68.23 Body mass index [BMI] 23.0-23.9, adult; B96.20 Unspecified Escherichia coli [E. coli] as the cause of diseases classified elsewhere; W19.XXXA Unspecified fall, initial encounter; Y93.89 Activity, other specified; Y92.238 Other place in hospital as the place of occurrence of the external cause; Y99.9 Unspecified external cause status
CPT/HCPCS: 36415; 36600; 70450-TC; 71045-TC-FY; 72100-TC-FY; 72192-TC; 73521-TC-FY; 73700-TC-RT; 76000-TC-FY; 80053; 81003; 82550; 82803; 82962; 83605; 83880; 84484; 85025; 85027; 85610; 85730; 86850; 86900; 86901; 87040; 87086; 87186; 87324; 87449; 87899; 93005; 93010; 94010; 94660; 94760; 97116-GP; 97161-GP; 99285-25; C1713; C9803-CS; U0003; U0005

== ENCOUNTER 2022-03-28 23:50 | Inpatient (IN) | payer OTHER, MEDICARE ==
[2022-03-29 00:43] VITALS: TEMP 98; BMI 21.6
[2022-03-29 00:50] LABS: BASO % 1.2 % (0-2.0); EOS % 3.9 % (0-4.5); HEMATOCRIT 39.1 % (32.4-45.2); HEMOGLOBIN 12.2 GM/dL (10.7-15.3); LYMPH % 20.2 % (8-40); MCH 29.3 pg (25.7-33.7); MCHC 31.3 g/dl (32.0-36.0); MEAN CELL VOLUME 93.8 fl (80-96); MEAN PLT VOLUME 7.8 fl (7.5-11.1); MONO % 6.2 % (3.8-10.2); NEUT % 68.5 % (42.8-82.8); PLATELET COUNT 661 10^3/uL (134-434); RBC 4.17 M/mm3 (3.60-5.2); RDW 16.5 % (11.6-15.6); WHITE BLOOD COUNT 8.9 K/mm3 (4.0-10.0)
[2022-03-29 01:02] LABS: INR 1.04 (0.83-1.09)
[2022-03-29 01:04] LABS: VENOUS BASE EXCESS -3.4 mmol/L (-2-2); VENOUS O2 SATURATION 63.7 % (70-80); VENOUS PCO2 69.9 mmHg (38-52)
[2022-03-29 01:05] LABS: ACTIVATED PTT 31.8 SECONDS (25.2-36.5)
[2022-03-29 01:06] LABS: VENOUS PH 7.191 (7.310-7.410)
[2022-03-29] MEDS ORDERED: methylPREDNISolone NA SUCC 125 MG/2 ML VIAL IVPUSH ONE (01:34)
[2022-03-29 01:42] LABS: CALCIUM 9.2 mg/dL (8.5-10.1)
[2022-03-29 01:43] LABS: ALBUMIN 3.1 g/dl (3.4-5.0); BLOOD UREA NITROGEN 17.7 mg/dL (7-18)
[2022-03-29] MEDS ORDERED: methylPREDNISolone NA SUCC 125 MG/2 ML VIAL ONE (01:44)
[2022-03-29] MEDS: ALBUTEROL SO4 2.5/IPRATROPIUM 0.5 INH SOL 3 ML VIAL.NEB. NEB SCH ×4 (01:45→05:44)
[2022-03-29 01:46] LABS: CREATININE 0.6 mg/dL (0.55-1.3); PHOSPHOROUS 5.4 mg/dL (2.5-4.9)
[2022-03-29 01:48] LABS: BILIRUBIN,TOTAL 0.4 mg/dL (0.2-1); TOT PROT 6.8 g/dl (6.4-8.2)
[2022-03-29 01:51] LABS: N-TERMINAL BNP 12232.1 pg/ml (5-450)
[2022-03-29 02:14] LABS: LACTIC ACID 2.1 mmol/L (0.4-2.0)
[2022-03-29] MEDS ORDERED: VANCOMYCIN 1 GM in D5W (PRE-DOCKED) 1,000 MG/250 ML IVPB ONE (03:11)
[2022-03-29] MEDS ORDERED: CEFEPIME HCL/D5W 2 GM/50 ML BAG IVPB ONE (03:11)
[2022-03-29] MEDS ORDERED: VANCOMYCIN/WATER FOR INJ (PEG) 1,000 MG/200 ML BAG IVPB ONE (03:47)
[2022-03-29] MEDS ORDERED: CEFEPIME 1 GM/100 ML BAG IVPB ONE (03:48)
[2022-03-29 04:36] LABS: VENOUS BASE EXCESS -1.6 mmol/L (-2-2); VENOUS O2 SATURATION 91.1 % (70-80); VENOUS PCO2 47.6 mmHg (38-52); VENOUS PH 7.331 (7.310-7.410)
[2022-03-29 05:24] LABS: CALCIUM 8.9 mg/dL (8.5-10.1)
[2022-03-29 05:25] LABS: BLOOD UREA NITROGEN 17.5 mg/dL (7-18)
[2022-03-29 05:28] LABS: CREATININE 0.4 mg/dL (0.55-1.3)
[2022-03-29] MEDS ORDERED: ALBUTEROL SO4 2.5/IPRATROPIUM 0.5 INH SOL 3 ML VIAL.NEB. NEB PRN (06:07)
[2022-03-29] MEDS ORDERED: metoPROLOL SUCCINATE 25 MG TAB.SR.24H (FP) PO ONE (08:12)
[2022-03-29] MEDS ORDERED: ENOXAPARIN NA (PORCINE) 40 MG/0.4 ML DISP.SYRIN SQ ONE (08:13)
[2022-03-29] MEDS ORDERED: methylPREDNISolone NA SUCC 40 MG/1 ML VIAL ONE (08:13)
[2022-03-29] MEDS ORDERED: ASPIRIN COATED 81 MG TABLET.EC ONE (08:13)
[2022-03-29] MEDS ORDERED: CEFEPIME 2 GM/100 ML BAG IVPB ONE (09:41)
[2022-03-29] MEDS ORDERED: BUDESONIDE/FORMETEROL FUMARATE 160/4.5 mcg INHALER IH SCH (10:00)
[2022-03-29] MEDS ORDERED: ASPIRIN COATED 81 MG TABLET.EC PO SCH (10:00)
[2022-03-29] MEDS ORDERED: ENOXAPARIN NA (PORCINE) 40 MG/0.4 ML DISP.SYRIN SQ SCH (10:00)
[2022-03-29] MEDS ORDERED: metoPROLOL SUCCINATE 25 MG TAB.SR.24H (FP) PO SCH (10:00)
[2022-03-29] MEDS ORDERED: PATIENT'S OWN MEDICATION (NON-FORMULARY) (Fluticasone/Vilanterol [Breo Ellipta 200-25 Mcg IH SCH (10:00)
[2022-03-29] MEDS ORDERED: methylPREDNISolone NA SUCC 40 MG/1 ML VIAL IVPUSH SCH (10:00)
[2022-03-29 10:46] VITALS: BP 96/59
[2022-03-29] MEDS ORDERED: CEFEPIME HCL/D5W 2 GM/50 ML BAG IVPB SCH (12:00)
[2022-03-29] MEDS ORDERED: CEFEPIME 2 GM in DEXTROSE 5%-WATER 100 ML IVPB SCH (12:00)
[2022-03-29 16:22] VITALS: PULSE 96; RESP 17
[2022-03-29] MEDS ORDERED: MELATONIN 5 MG TABLETS PO SCH (22:00)
[2022-03-30] MEDS ORDERED: VANCOMYCIN 1,000 MG in DEXTROSE 5%-WATER - 250 ML IVPB SCH (04:00)
[2022-03-30] MEDS ORDERED: VANCOMYCIN/WATER FOR INJ (PEG) 1,000 MG/200 ML BAG IVPB SCH (04:00)
== END 2022-03-29 16:24 | disposition home or self-care (01) | DRG 189 ==
LOC: JER 23:50 → JERBED 03-29 00:24
PROVIDERS: ADMIT Family Medicine; ATTEND Internal Medicine
DX: J96.22 Acute and chronic respiratory failure with hypercapnia (principal); I21.A1 Myocardial infarction type 2; J18.9 Pneumonia, unspecified organism; J44.1 Chronic obstructive pulmonary disease with (acute) exacerbation; I50.22 Chronic systolic (congestive) heart failure; K51.90 Ulcerative colitis, unspecified, without complications; J96.21 Acute and chronic respiratory failure with hypoxia; I25.10 Atherosclerotic heart disease of native coronary artery without angina pectoris; I10 Essential (primary) hypertension; E78.5 Hyperlipidemia, unspecified; I11.0 Hypertensive heart disease with heart failure; D50.9 Iron deficiency anemia, unspecified; R91.1 Solitary pulmonary nodule; Z86.16 Personal history of COVID-19; D72.820 Lymphocytosis (symptomatic); F03.90 Unspecified dementia, unspecified severity, without behavioral disturbance, psychotic disturbance, mood disturbance, and anxiety
CPT/HCPCS: 0241U-QW; 36415; 71045-TC-FY; 71275-TC; 80048; 80053; 82803; 83605; 83735; 83880; 84100; 84484; 85025; 85610; 85730; 93005; 93010; 99291; Q9967

== ENCOUNTER 2022-04-24 04:13 | Inpatient (IN) | payer OTHER, MEDICARE ==
[2022-04-24] MEDS ORDERED: MIDAZOLAM IN 0.9 % SOD.CHLORID 1 MG/1 ML PLAST..BAG ONE (04:40)
[2022-04-24] MEDS ORDERED: fentaNYL CITRATE 250 MCG/5 ML VIAL ONE (04:41)
[2022-04-24] MEDS: FENTANYL NS IVPB 500 MCG/100 ML BAG IVPB SCH ×2 (04:42→17:30)
[2022-04-24] MEDS ORDERED: MIDAZOLAM 100 MG in SODIUM CHLORIDE 100 ML IVPB SCH (04:45)
[2022-04-24] MEDS ORDERED: PIPERACILLIN/TAZOB 3.375 GM 3.375 GM in DEXTROSE 5%-WATER - 50 ML IVPB ONE (04:46)
[2022-04-24] MEDS ORDERED: DEXAMETHASONE SOD PHOSPHATE 10 MG/1 ML VIAL IVPUSH ONE (04:46)
[2022-04-24] MEDS ORDERED: ROCURONIUM BROMIDE 50 MG/5 ML VIAL IV ONE (04:49)
[2022-04-24] MEDS ORDERED: MIDAZOLAM HCL 2 MG/2 ML SINGLE DOSE VIAL ONE (04:49)
[2022-04-24] MEDS ORDERED: ROCURONIUM BROMIDE 50 MG/5 ML SYRINGE ONE (04:49)
[2022-04-24] MEDS ORDERED: MIDAZOLAM HCL 2 MG/2 ML SINGLE DOSE VIAL IVPUSH ONE (04:50)
[2022-04-24 05:11] LABS: ARTERIAL BLD GAS O2 SATURATION 98.9 % (95-98); ARTERIAL BLOOD GAS BASE EXCESS -11.1 mmol/L (-2-2)
[2022-04-24] MEDS ORDERED: ACETAMINOPHEN 1000 MG/100 ML BAG IVPB ONE (05:12)
[2022-04-24] MEDS: MIDAZOLAM IN 0.9 % SOD.CHLORID 100 MG/100 ML PLAST..BAG IVPB SCH ×2 (05:13→19:00)
[2022-04-24] MEDS ORDERED: DEXAMETHASONE SOD PHOSPHATE 10 MG/1 ML VIAL ONE (05:17)
[2022-04-24] MEDS ORDERED: PIPERACILLIN/TAZOB 3.375 GM 3.375 GM/50 ML BAG IVPB ONE (05:18)
[2022-04-24] MEDS ORDERED: ACETAMINOPHEN INJECTION 100 ML IVPB ONE (05:18)
[2022-04-24 05:25] LABS: HEMATOCRIT 39.5 % (32.4-45.2); HEMOGLOBIN 12.1 GM/dL (10.7-15.3); MCH 28.6 pg (25.7-33.7); MCHC 30.7 g/dl (32.0-36.0); MEAN CELL VOLUME 93.2 fl (80-96); MEAN PLT VOLUME 8.8 fl (7.5-11.1); PLATELET COUNT 291 10^3/uL (134-434); RBC 4.24 M/mm3 (3.60-5.2); WHITE BLOOD COUNT 12.3 K/mm3 (4.0-10.0)
[2022-04-24 05:29] LABS: INR 1.02 (0.83-1.09); PROTHROMBIN TIME (PATIENT) 11.7 SEC (9.7-13.0)
[2022-04-24 05:32] LABS: ACTIVATED PTT 25.6 SECONDS (25.2-36.5)
[2022-04-24] MEDS ORDERED: METOPROLOL TARTRATE 5 MG/5 ML VIAL IVPUSH ONE (05:32)
[2022-04-24 05:33] LABS: CALCIUM 8.1 mg/dL (8.5-10.1)
[2022-04-24 05:34] LABS: ALBUMIN 2.9 g/dl (3.4-5.0); BLOOD UREA NITROGEN 25.6 mg/dL (7-18); MAGNESIUM 1.8 mg/dL (1.8-2.4)
[2022-04-24 05:36] LABS: ALLENS TEST POSITIVE
[2022-04-24 05:37] LABS: ARTERIAL BLOOD GAS pH 7.028 (7.350-7.450); VENT MODE A/C; VENT RATE 12
[2022-04-24 05:37] LABS: CREATININE 0.7 mg/dL (0.55-1.3); PHOSPHOROUS 5.7 mg/dL (2.5-4.9)
[2022-04-24 05:39] LABS: BILIRUBIN,TOTAL 0.2 mg/dL (0.2-1); TOT PROT 5.7 g/dl (6.4-8.2)
[2022-04-24 05:43] LABS: N-TERMINAL BNP 7212.7 pg/ml (5-450)
[2022-04-24] MEDS ORDERED: SODIUM BICARBONATE 8.4% 50 MEQ/50 ML VIAL IV ONE (05:55)
[2022-04-24] MEDS ORDERED: PANTOPRAZOLE SODIUM 40 MG VIAL IVPUSH ONE (06:00)
[2022-04-24] MEDS ORDERED: PANTOPRAZOLE SODIUM 40 MG VIAL ONE (06:11)
[2022-04-24] MEDS ORDERED: SODIUM BICARBONATE 8.4% - 50 ML ONE (06:14)
[2022-04-24] MEDS ORDERED: METOPROLOL TARTRATE 5 MG/5 ML VIAL ONE (06:42)
[2022-04-24 06:57] LABS: EPI CELLS 8 /uL (0-25.1); HYALINE CASTS 3 /uL (0-3.1); URINE APPEARANCE CLOUDY; URINE BACTERIA 8370 /uL (0-1359); URINE BILIRUBIN NEGATIVE (NEGATIVE); URINE COLOR YELLOW; URINE GLUCOSE (UA) TRACE (NEGATIVE); URINE KETONE NEGATIVE (NEGATIVE); URINE LEUK ESTERASE 1+ (NEGATIVE); URINE NITRITE POSITIVE (NEGATIVE); URINE PROTEIN 2+ (NEGATIVE); URINE RBC 8 /uL (0-23.9); URINE UROBILINOGEN 0.2 mg/dL (0.2-1.0); URINE WBC 460 /uL (0-25.8)
[2022-04-24 07:01] LABS: ARTERIAL BLD GAS O2 SATURATION 94.2 % (95-98); ARTERIAL BLOOD GAS BASE EXCESS -7.3 mmol/L (-2-2); ARTERIAL BLOOD GAS PO2 93.9 mmHg (80-100)
[2022-04-24 07:03] LABS: ALLENS TEST POSITIVE; VENT MODE A/C; VENT RATE 16
[2022-04-24 07:04] LABS: ARTERIAL BLOOD GAS pH 7.123 (7.350-7.450)
[2022-04-24] MEDS ORDERED: VASOPRESSIN 20 UNITS/ML VIAL IV ONE (08:09)
[2022-04-24] MEDS: VASOPRESSIN 40 UNITS/100 ML BAG IV SCH ×3 (08:10→21:15)
[2022-04-24] MEDS ORDERED: LACTATED RINGERS SOLUTION 1,000 ML/1,000 ML INFUS.BAG IV STA (08:11)
[2022-04-24 09:17] LABS: ANISOCYTOSIS 0; MACROCYTOSIS 0; OVALOCYTE 1+
[2022-04-24] MEDS ORDERED: AZITHROMYCIN IVPB 500 MG/250 ML BAG IVPB SCH (10:00)
[2022-04-24] MEDS ORDERED: LACTATED RINGERS SOLUTION 1,000 ML/1,000 ML INFUS.BAG IV SCH (11:15)
[2022-04-24] MEDS: PANTOPRAZOLE SODIUM 40 MG VIAL IVPUSH SCH (11:18)
[2022-04-24] MEDS: MUPIROCIN 2% TOPICAL OINTMENT FOR DECOLONIZATION NS SCH ×2 (11:19→21:07)
[2022-04-24 13:58] LABS: HEMATOCRIT 35.9 % (32.4-45.2); MCH 28.1 pg (25.7-33.7); MCHC 30.5 g/dl (32.0-36.0); MEAN PLT VOLUME 7.8 fl (7.5-11.1); PLATELET COUNT 196 10^3/uL (134-434); RBC 3.91 M/mm3 (3.60-5.2); RDW 15.6 % (11.6-15.6); WHITE BLOOD COUNT 17.5 K/mm3 (4.0-10.0)
[2022-04-24 14:02] LABS: INR 1.06 (0.83-1.09); PROTHROMBIN TIME (PATIENT) 12.2 SEC (9.7-13.0)
[2022-04-24 14:14] LABS: SODIUM 142 mmol/L (136-145)
[2022-04-24 14:16] LABS: CALCIUM 8.6 mg/dL (8.5-10.1)
[2022-04-24 14:18] LABS: BLOOD UREA NITROGEN 26.9 mg/dL (7-18); CO2 26 mmol/L (21-32); GLUCOSE,RANDOM 155 mg/dL (74-106)
[2022-04-24] MEDS: PIPERACILLIN/TAZOB 4.5 GM 4.5 GM in DEXTROSE 5%-WATER 100 ML IVPB SCH ×2 (14:18→21:00)
[2022-04-24 14:31] LABS: ANISOCYTOSIS 0; MACROCYTOSIS 0
[2022-04-24 14:32] LABS: ANION GAP 5 MMOL/L (8-16); CHLORIDE 110 mmol/L (98-107); CREATININE 0.7 mg/dL (0.55-1.3)
[2022-04-24] MEDS ORDERED: PIPERACILLIN/TAZOB 4.5 GM 4.5 GM in DEXTROSE 5%-WATER 100 ML IVPB SCH (15:00)
[2022-04-24 15:10] LABS: ARTERIAL BLD GAS O2 SATURATION 98.8 % (95-98); ARTERIAL BLOOD GAS BASE EXCESS -0.9 mmol/L (-2-2); ARTERIAL BLOOD GAS PO2 142.2 mmHg (80-100); ARTERIAL BLOOD GAS pH 7.391 (7.350-7.450)
[2022-04-24 15:12] LABS: ALLENS TEST POSITIVE; VENT MODE AC
[2022-04-24 15:13] LABS: VENT RATE 22
[2022-04-24 20:24] LABS: ARTERIAL BLD GAS O2 SATURATION 98.8 % (95-98); ARTERIAL BLOOD GAS BASE EXCESS -2.1 mmol/L (-2-2); ARTERIAL BLOOD GAS PO2 145.6 mmHg (80-100); ARTERIAL BLOOD GAS pH 7.384 (7.350-7.450)
[2022-04-24 20:27] LABS: ALLENS TEST POSITIVE
[2022-04-24 20:29] LABS: VENT MODE A/C; VENT RATE 18
[2022-04-24] MEDS: CHLORHEXIDINE GLUCONATE 4% CLEANSER FOR DECOLONIZATION TP SCH (21:07)
[2022-04-24] MEDS ORDERED: LACTATED RINGERS SOLUTION 1000 ML INFUS.BAG IV ONE (23:18)
[2022-04-24] MEDS: NOREPINEPHRINE 0.9 % NACL 8 MG/250 ML BAG IVPB SCH (23:40)
[2022-04-25] MEDS: PIPERACILLIN/TAZOB 4.5 GM 4.5 GM in DEXTROSE 5%-WATER 100 ML IVPB SCH ×3 (01:07→17:28)
[2022-04-25 01:09] LABS: BLOOD UREA NITROGEN 23.7 mg/dL (7-18); MAGNESIUM 1.7 mg/dL (1.8-2.4)
[2022-04-25 01:12] LABS: CREATININE 0.5 mg/dL (0.55-1.3); PHOSPHOROUS 3.1 mg/dL (2.5-4.9)
[2022-04-25] MEDS: FENTANYL NS IVPB 500 MCG/100 ML BAG IVPB SCH ×3 (05:46→19:00)
[2022-04-25] MEDS: MIDAZOLAM IN 0.9 % SOD.CHLORID 100 MG/100 ML PLAST..BAG IVPB SCH (05:46)
[2022-04-25 06:18] LABS: ALLENS TEST POSITIVE; ARTERIAL BLD GAS O2 SATURATION 98.7 % (95-98); ARTERIAL BLOOD GAS BASE EXCESS -0.5 mmol/L (-2-2); ARTERIAL BLOOD GAS PO2 138.5 mmHg (80-100)
[2022-04-25 06:19] LABS: VENT MODE A/C; VENT RATE 18
[2022-04-25 08:33] LABS: BASO % 0.3 % (0-2.0); EOS % 0.9 % (0-4.5); HEMATOCRIT 33.8 % (32.4-45.2); HEMOGLOBIN 10.5 GM/dL (10.7-15.3); LYMPH % 7.8 % (8-40); MCH 28.3 pg (25.7-33.7); MEAN CELL VOLUME 91.4 fl (80-96); MEAN PLT VOLUME 8.4 fl (7.5-11.1); MONO % 6.1 % (3.8-10.2); NEUT % 84.9 % (42.8-82.8); PLATELET COUNT 216 10^3/uL (134-434); WHITE BLOOD COUNT 11.4 K/mm3 (4.0-10.0)
[2022-04-25 09:16] LABS: CALCIUM 8.3 mg/dL (8.5-10.1)
[2022-04-25 09:17] LABS: ALBUMIN 2.4 g/dl (3.4-5.0); BLOOD UREA NITROGEN 21.5 mg/dL (7-18); MAGNESIUM 1.8 mg/dL (1.8-2.4)
[2022-04-25 09:19] LABS: CREATININE 0.5 mg/dL (0.55-1.3)
[2022-04-25 09:20] LABS: PHOSPHOROUS 2.8 mg/dL (2.5-4.9)
[2022-04-25 09:21] LABS: BILIRUBIN,TOTAL 0.6 mg/dL (0.2-1); TOT PROT 4.9 g/dl (6.4-8.2)
[2022-04-25] MEDS: PANTOPRAZOLE SODIUM 40 MG VIAL IVPUSH SCH (10:45)
[2022-04-25] MEDS: VASOPRESSIN 40 UNITS/100 ML BAG IV SCH (11:05)
[2022-04-25] MEDS: MUPIROCIN 2% TOPICAL OINTMENT FOR DECOLONIZATION NS SCH ×2 (11:05→21:44)
[2022-04-25] MEDS ORDERED: DOPAMINE 400 MG/D5W - 400,000 MCG/250 ML INFUS.BAG IVPB SCH (15:15)
[2022-04-25] MEDS ORDERED: methylPREDNISolone NA SUCC 40 MG/1 ML VIAL IVPUSH STA (15:41)
[2022-04-25 15:56] LABS: N-TERMINAL BNP 10703.4 pg/ml (5-450)
[2022-04-25] MEDS: CHLORHEXIDINE GLUCONATE 4% CLEANSER FOR DECOLONIZATION TP SCH (21:44)
[2022-04-26] MEDS: NOREPINEPHRINE 0.9 % NACL 8 MG/250 ML BAG IVPB SCH (00:40)
[2022-04-26] MEDS: FUROSEMIDE INJECTION 100 MG in SODIUM CHLORIDE 90 ML IVPB SCH (01:43)
[2022-04-26] MEDS: PIPERACILLIN/TAZOB 4.5 GM 4.5 GM in DEXTROSE 5%-WATER 100 ML IVPB SCH ×3 (01:44→18:33)
[2022-04-26] MEDS: MIDAZOLAM IN 0.9 % SOD.CHLORID 100 MG/100 ML PLAST..BAG IVPB SCH (06:10)
[2022-04-26 06:29] LABS: ARTERIAL BLD GAS O2 SATURATION 96.7 % (95-98); ARTERIAL BLOOD GAS BASE EXCESS 0.4 mmol/L (-2-2); ARTERIAL BLOOD GAS PO2 90.3 mmHg (80-100); ARTERIAL BLOOD GAS pH 7.381 (7.350-7.450)
[2022-04-26 06:31] LABS: ALLENS TEST POSITIVE
[2022-04-26 06:32] LABS: VENT MODE A/C; VENT RATE 18
[2022-04-26] MEDS: FENTANYL NS IVPB 500 MCG/100 ML BAG IVPB SCH (07:06)
[2022-04-26 07:47] LABS: HEMATOCRIT 38.1 % (32.4-45.2); HEMOGLOBIN 11.9 GM/dL (10.7-15.3); MCH 28.5 pg (25.7-33.7); MCHC 31.2 g/dl (32.0-36.0); MEAN CELL VOLUME 91.6 fl (80-96); MEAN PLT VOLUME 8.6 fl (7.5-11.1); PLATELET COUNT 228 10^3/uL (134-434); RBC 4.15 M/mm3 (3.60-5.2); RDW 16.1 % (11.6-15.6); WHITE BLOOD COUNT 11.5 K/mm3 (4.0-10.0)
[2022-04-26 08:00] LABS: BLOOD UREA NITROGEN 19.8 mg/dL (7-18); MAGNESIUM 1.8 mg/dL (1.8-2.4)
[2022-04-26 08:03] LABS: CREATININE 0.7 mg/dL (0.55-1.3); PHOSPHOROUS 3.8 mg/dL (2.5-4.9)
[2022-04-26 08:08] LABS: N-TERMINAL BNP 9029.5 pg/ml (5-450)
[2022-04-26] MEDS: PANTOPRAZOLE SODIUM 40 MG VIAL IVPUSH SCH (09:20)
[2022-04-26] MEDS: methylPREDNISolone NA SUCC 40 MG/1 ML VIAL IVPUSH SCH (09:20)
[2022-04-26] MEDS: MUPIROCIN 2% TOPICAL OINTMENT FOR DECOLONIZATION NS SCH ×2 (09:20→21:19)
[2022-04-26] MEDS ORDERED: METOPROLOL TARTRATE 5 MG/5 ML VIAL IVPUSH PRN (11:24)
[2022-04-26 15:00] VITALS: BMI 23.8
[2022-04-26] MEDS: CHLORHEXIDINE GLUCONATE 4% CLEANSER FOR DECOLONIZATION TP SCH (21:19)
[2022-04-27] MEDS: FUROSEMIDE INJECTION 100 MG in SODIUM CHLORIDE 90 ML IVPB SCH (00:57)
[2022-04-27] MEDS: PIPERACILLIN/TAZOB 4.5 GM 4.5 GM in DEXTROSE 5%-WATER 100 ML IVPB SCH ×3 (01:30→17:33)
[2022-04-27 08:05] LABS: HEMATOCRIT 38.8 % (32.4-45.2); HEMOGLOBIN 12.2 GM/dL (10.7-15.3); MCH 28.4 pg (25.7-33.7); MCHC 31.5 g/dl (32.0-36.0); MEAN CELL VOLUME 90.2 fl (80-96); MEAN PLT VOLUME 8.4 fl (7.5-11.1); PLATELET COUNT 288 10^3/uL (134-434); RDW 15.2 % (11.6-15.6); WHITE BLOOD COUNT 12.5 K/mm3 (4.0-10.0)
[2022-04-27 08:22] LABS: BLOOD UREA NITROGEN 24.3 mg/dL (7-18); CALCIUM 8.7 mg/dL (8.5-10.1)
[2022-04-27 08:23] LABS: MAGNESIUM 1.6 mg/dL (1.8-2.4)
[2022-04-27 08:26] LABS: CREATININE 0.8 mg/dL (0.55-1.3); PHOSPHOROUS 3.4 mg/dL (2.5-4.9)
[2022-04-27] MEDS ORDERED: MAGNESIUM SULF 50% (8.12 MEQ/2 ML-1 GM VIAL) IVPB ONE (09:33)
[2022-04-27] MEDS: methylPREDNISolone NA SUCC 40 MG/1 ML VIAL IVPUSH SCH (09:47)
[2022-04-27] MEDS: PANTOPRAZOLE SODIUM 40 MG VIAL IVPUSH SCH (09:47)
[2022-04-27] MEDS: KCL 10 MEQ IVPB 10 MEQ/100 ML INFUS.BAG IVPB SCH ×3 (10:00→12:40)
[2022-04-27] MEDS: MUPIROCIN 2% TOPICAL OINTMENT FOR DECOLONIZATION NS SCH ×2 (10:00→23:58)
[2022-04-27] MEDS: MESALAMINE 800 MG TABLET.DR PO SCH ×2 (12:25→17:33)
[2022-04-27] MEDS: VANCOMYCIN 250 MG/5 ML ORAL SOLUTION PO SCH (17:33)
[2022-04-28] MEDS: CHLORHEXIDINE GLUCONATE 4% CLEANSER FOR DECOLONIZATION TP SCH (00:01)
[2022-04-28] MEDS: VANCOMYCIN 250 MG/5 ML ORAL SOLUTION PO SCH ×4 (01:57→17:44)
[2022-04-28] MEDS ORDERED: LORazepam 2 MG/ML SDV VIAL IM ONE (03:00)
[2022-04-28 09:58] LABS: BASO % 0.4 % (0-2.0); EOS % 0.8 % (0-4.5); HEMATOCRIT 38.2 % (32.4-45.2); HEMOGLOBIN 12.3 GM/dL (10.7-15.3); LYMPH % 11.4 % (8-40); MCHC 32.1 g/dl (32.0-36.0); MEAN CELL VOLUME 90.3 fl (80-96); MEAN PLT VOLUME 8.2 fl (7.5-11.1); MONO % 8.3 % (3.8-10.2); NEUT % 79.1 % (42.8-82.8); PLATELET COUNT 346 10^3/uL (134-434); RBC 4.23 M/mm3 (3.60-5.2); RDW 15.3 % (11.6-15.6); WHITE BLOOD COUNT 10.3 K/mm3 (4.0-10.0)
[2022-04-28] MEDS ORDERED: methylPREDNISolone NA SUCC 40 MG/1 ML VIAL IVPUSH SCH (10:00)
[2022-04-28] MEDS ORDERED: MUPIROCIN 2% TOPICAL OINTMENT FOR DECOLONIZATION NS SCH (10:00)
[2022-04-28] MEDS: CEFTRIAXONE 1 GM in DEXTROSE 5%-WATER - 50 ML IVPB SCH (10:25)
[2022-04-28] MEDS: FUROSEMIDE 40 MG/4 ML INJECTABLE VIAL IVPUSH SCH (10:29)
[2022-04-28] MEDS: MESALAMINE 800 MG TABLET.DR PO SCH ×3 (10:29→17:44)
[2022-04-28] MEDS: PANTOPRAZOLE SODIUM 40 MG VIAL IVPUSH SCH (10:29)
[2022-04-28 10:32] LABS: CALCIUM 9.2 mg/dL (8.5-10.1)
[2022-04-28 10:33] LABS: ALBUMIN 2.9 g/dl (3.4-5.0); BLOOD UREA NITROGEN 22.3 mg/dL (7-18)
[2022-04-28 10:36] LABS: CREATININE 0.7 mg/dL (0.55-1.3)
[2022-04-28 10:37] LABS: TOT PROT 6.2 g/dl (6.4-8.2)
[2022-04-28 10:39] LABS: BILIRUBIN,TOTAL 0.6 mg/dL (0.2-1)
[2022-04-28] MEDS ORDERED: ALBUTEROL SO4 0.083% IH SOL 2.5 MG/3 ML VIAL.NEB. NEB PRN (10:55)
[2022-04-28] MEDS: FLUTICASONE/UMECLIDIN/VILANTER(200-62.5-25 TRELEGY ELLIPTA) INAHLER IH SCH (12:40)
[2022-04-28] MEDS ORDERED: ALPRAZolam 0.25 MG TABLET PO PRN (13:48)
[2022-04-28] MEDS ORDERED: ALBUTEROL SO4 2.5/IPRATROPIUM 0.5 INH SOL 3 ML VIAL.NEB. NEB PRN (13:48)
[2022-04-28] MEDS: POTASSIUM CHLORIDE TABS 20 MEQ TABLET.ER (FP) PO SCH (21:42)
[2022-04-28] MEDS ORDERED: CHLORHEXIDINE GLUCONATE 4% CLEANSER FOR DECOLONIZATION TP SCH (22:00)
[2022-04-28 22:09] VITALS: RESP 18
[2022-04-28] MEDS ORDERED: ACETYLCYSTEINE 20% 200MG/ML 4 ML VIAL *FOR ORAL / INH USE ONLY ONE (23:54)
[2022-04-29] MEDS: VANCOMYCIN 250 MG/5 ML ORAL SOLUTION PO SCH ×3 (00:35→12:01)
[2022-04-29 09:54] LABS: CALCIUM 8.9 mg/dL (8.5-10.1)
[2022-04-29 09:55] LABS: BLOOD UREA NITROGEN 17.6 mg/dL (7-18)
[2022-04-29 09:58] LABS: CREATININE 0.5 mg/dL (0.55-1.3)
[2022-04-29] MEDS ORDERED: LOSARTAN POTASSIUM 25 MG TABLET PO SCH (10:00)
[2022-04-29] MEDS ORDERED: metoPROLOL SUCCINATE 25 MG TAB.SR.24H (FP) PO SCH (10:00)
[2022-04-29] MEDS ORDERED: FLUTICASONE/UMECLIDIN/VILANTER(100-62.5-25 TRELEGY ELLIPTA) INAHLER IH SCH (10:00)
[2022-04-29] MEDS: PANTOPRAZOLE SODIUM 40 MG VIAL IVPUSH SCH (10:07)
[2022-04-29] MEDS: MESALAMINE 800 MG TABLET.DR PO SCH ×2 (10:07→11:59)
[2022-04-29] MEDS: FUROSEMIDE 40 MG/4 ML INJECTABLE VIAL IVPUSH SCH (10:07)
[2022-04-29] MEDS: POTASSIUM CHLORIDE TABS 20 MEQ TABLET.ER (FP) PO SCH (10:07)
[2022-04-29] MEDS: CEFTRIAXONE 1 GM in DEXTROSE 5%-WATER - 50 ML IVPB SCH (10:08)
[2022-04-29] MEDS: FLUTICASONE/UMECLIDIN/VILANTER(200-62.5-25 TRELEGY ELLIPTA) INAHLER IH SCH (10:08)
[2022-04-29 15:45] VITALS: BP 113/75; PULSE 72; TEMP 98.1
[2022-04-30 08:06] LABS: CARCINOEMBRYONIC ANTIGEN 5.2 ng/mL (0.0-4.7)
== END 2022-04-29 15:51 | disposition home or self-care (01) | DRG 871 ==
LOC: JER 04:13 → JERBED 04:38 → JICU 08:08 → J8W 04-27 21:43
PROVIDERS: ADMIT Internal Medicine Pulmonary Disease; ATTEND Internal Medicine
PROC: 05H633Z Insertion of Infusion Device into Left Subclavian Vein, Percutaneous Approach (ICD-10-PCS; principal; 2022-04-24)
PROC: B547ZZA Ultrasonography of Left Subclavian Vein, Guidance (ICD-10-PCS; 2022-04-24)
PROC: 05H533Z Insertion of Infusion Device into Right Subclavian Vein, Percutaneous Approach (ICD-10-PCS; 2022-04-24)
PROC: 5A1945Z Respiratory Ventilation, 24-96 Consecutive Hours (ICD-10-PCS; 2022-04-24)
DX: A41.89 Other specified sepsis (principal); J18.9 Pneumonia, unspecified organism; J96.01 Acute respiratory failure with hypoxia; E87.29 Other acidosis; K62.5 Hemorrhage of anus and rectum; R64 Cachexia; N39.0 Urinary tract infection, site not specified; I24.8 Other forms of acute ischemic heart disease; A04.72 Enterocolitis due to Clostridium difficile, not specified as recurrent; J44.0 Chronic obstructive pulmonary disease with (acute) lower respiratory infection; J44.1 Chronic obstructive pulmonary disease with (acute) exacerbation; I50.22 Chronic systolic (congestive) heart failure; K51.90 Ulcerative colitis, unspecified, without complications; K92.2 Gastrointestinal hemorrhage, unspecified; I11.0 Hypertensive heart disease with heart failure; M54.50 Low back pain, unspecified; I25.10 Atherosclerotic heart disease of native coronary artery without angina pectoris; E78.5 Hyperlipidemia, unspecified; R00.0 Tachycardia, unspecified; R77.8 Other specified abnormalities of plasma proteins; I77.819 Aortic ectasia, unspecified site; D64.9 Anemia, unspecified; J44.9 Chronic obstructive pulmonary disease, unspecified; Z68.20 Body mass index [BMI] 20.0-20.9, adult; I95.9 Hypotension, unspecified; B96.20 Unspecified Escherichia coli [E. coli] as the cause of diseases classified elsewhere; R91.1 Solitary pulmonary nodule; N93.9 Abnormal uterine and vaginal bleeding, unspecified; Z85.41 Personal history of malignant neoplasm of cervix uteri
CPT/HCPCS: 0241U-QW; 36415; 36600; 71045-TC-FY; 74176-TC; 76856-TC; 80048; 80053; 81003; 82272; 82378; 82803; 82962; 83516; 83605; 83735; 83880; 83993; 84100; 84484; 85025; 85027; 85379; 85384; 85610; 85730; 86140; 86255; 86671; 86922; 87040; 87070; 87086; 87186; 87205; 87324; 87449; 87493; 87899; 93005; 93010; 93306-TC; 94002; 99285-25; J1100; J3490; Q9967

== ENCOUNTER 2022-07-13 00:14 | Inpatient (IN) | payer OTHER, MEDICARE ==
[2022-07-13] MEDS ORDERED: MAGNESIUM SULFATE IN WATER 2 GM/50 ML IVPB IVPB ONE (00:23)
[2022-07-13] MEDS ORDERED: DEXAMETHASONE SOD PHOSPHATE 10 MG/1 ML VIAL ONE (00:23)
[2022-07-13] MEDS: ALBUTEROL SO4 2.5/IPRATROPIUM 0.5 INH SOL 3 ML VIAL.NEB. NEB SCH ×4 (00:23→11:35)
[2022-07-13] MEDS ORDERED: ALBUTEROL SO4 2.5/IPRATROPIUM 0.5 INH SOL 3 ML VIAL.NEB. NEB ONE ×4 (00:23→11:37)
[2022-07-13] MEDS ORDERED: FUROSEMIDE 40 MG/4 ML INJECTABLE VIAL IVPUSH ONE ×2 (00:55→07:30)
[2022-07-13 01:20] LABS: VENOUS BASE EXCESS -5.1 mmol/L (-2-2); VENOUS O2 SATURATION 47.9 % (70-80); VENOUS PCO2 68.8 mmHg (38-52)
[2022-07-13 01:24] LABS: BASO % 1.1 % (0-2.0); EOS % 2.7 % (0-4.5); HEMATOCRIT 40.3 % (32.4-45.2); HEMOGLOBIN 12.8 GM/dL (10.7-15.3); LYMPH % 16.9 % (8-40); MCH 27.4 pg (25.7-33.7); MCHC 31.8 g/dl (32.0-36.0); MONO % 8.2 % (3.8-10.2); NEUT % 71.1 % (42.8-82.8); PLATELET COUNT 516 10^3/uL (134-434); RBC 4.69 M/mm3 (3.60-5.2); RDW 16.3 % (11.6-15.6); WHITE BLOOD COUNT 9.4 K/mm3 (4.0-10.0)
[2022-07-13 01:29] LABS: PROTHROMBIN TIME (PATIENT) 11.6 SEC (9.7-13.0)
[2022-07-13 01:34] LABS: VENOUS PH 7.173 (7.310-7.410)
[2022-07-13] MEDS ORDERED: FUROSEMIDE 40 MG/4 ML INJECTABLE VIAL ONE ×2 (01:37→07:26)
[2022-07-13 01:39] LABS: CALCIUM 8.8 mg/dL (8.5-10.1)
[2022-07-13 01:40] LABS: ALBUMIN 3.3 g/dl (3.4-5.0); BLOOD UREA NITROGEN 26.7 mg/dL (7-18)
[2022-07-13 01:43] LABS: CREATININE 0.8 mg/dL (0.55-1.3)
[2022-07-13 01:44] LABS: BILIRUBIN,TOTAL 0.2 mg/dL (0.2-1)
[2022-07-13 01:45] LABS: TOT PROT 7.2 g/dl (6.4-8.2)
[2022-07-13 01:48] LABS: N-TERMINAL BNP 12875.5 pg/ml (5-450)
[2022-07-13] MEDS ORDERED: ACETAMINOPHEN 1000 MG/100 ML BAG IVPB ONE (02:09)
[2022-07-13] MEDS ORDERED: ACETAMINOPHEN INJECTION 100 ML IVPB ONE (02:09)
[2022-07-13 02:20] LABS: VENOUS BASE EXCESS -2.5 mmol/L (-2-2); VENOUS O2 SATURATION 58.5 % (70-80); VENOUS PCO2 64.7 mmHg (38-52); VENOUS PH 7.229 (7.310-7.410)
[2022-07-13 04:14] LABS: ACTIVATED PTT 30.8 SECONDS (25.2-36.5)
[2022-07-13 04:19] LABS: VENOUS BASE EXCESS -0.7 mmol/L (-2-2); VENOUS O2 SATURATION 54.3 % (70-80); VENOUS PCO2 58.9 mmHg (38-52); VENOUS PH 7.283 (7.310-7.410)
[2022-07-13] MEDS ORDERED: ALBUTEROL SO4 2.5/IPRATROPIUM 0.5 INH SOL 3 ML VIAL.NEB. NEB PRN (04:54)
[2022-07-13] MEDS: INSULIN SLIDING SCALE (NOVOLOG) 1 VIAL SQ SCH ×2 (07:42→11:35)
[2022-07-13] MEDS ORDERED: ENOXAPARIN NA (PORCINE) 40 MG/0.4 ML DISP.SYRIN SQ ONE (09:11)
[2022-07-13] MEDS ORDERED: BUDESONIDE/FORMETEROL FUMARATE 160/4.5 mcg INHALER IH SCH (10:00)
[2022-07-13] MEDS ORDERED: ENOXAPARIN NA (PORCINE) 40 MG/0.4 ML DISP.SYRIN SQ SCH (10:00)
[2022-07-13 10:24] VITALS: BMI 22.2
[2022-07-13] MEDS ORDERED: FLU VACC QS2022-23(6MOS UP)/PF 60 MCG/0.5 ML SYRINGE IM ONE (10:24)
[2022-07-13] MEDS ORDERED: ACETAMINOPHEN/CAFFEINE/BUTALBITAL 1 TAB PO PRN (11:38)
[2022-07-13] MEDS ORDERED: ACETAMINOPHEN/CAFFEINE/BUTALBITAL 1 TAB ONE (13:41)
[2022-07-13] MEDS ORDERED: methylPREDNISolone NA SUCC 40 MG/1 ML VIAL IVPUSH SCH (14:00)
[2022-07-13 14:13] LABS: CALCIUM 8.4 mg/dL (8.5-10.1)
[2022-07-13 14:14] LABS: ALBUMIN 3.3 g/dl (3.4-5.0); BLOOD UREA NITROGEN 24.7 mg/dL (7-18); MAGNESIUM 2.2 mg/dL (1.8-2.4)
[2022-07-13 14:16] LABS: PHOSPHOROUS 3.4 mg/dL (2.5-4.9)
[2022-07-13 14:17] LABS: CREATININE 0.6 mg/dL (0.55-1.3)
[2022-07-13 14:18] LABS: BILIRUBIN,TOTAL 0.3 mg/dL (0.2-1); TOT PROT 6.6 g/dl (6.4-8.2)
[2022-07-13 15:55] VITALS: BP 101/72; PULSE 92; RESP 21; TEMP 98.5
== END 2022-07-13 15:55 | disposition home or self-care (01) | DRG 189 ==
LOC: JER 00:14 → JERBED 03:15
PROVIDERS: ADMIT Internal Medicine; ATTEND Internal Medicine
DX: J96.21 Acute and chronic respiratory failure with hypoxia (principal); I50.23 Acute on chronic systolic (congestive) heart failure; J44.1 Chronic obstructive pulmonary disease with (acute) exacerbation; K51.90 Ulcerative colitis, unspecified, without complications; E87.29 Other acidosis; I24.8 Other forms of acute ischemic heart disease; R64 Cachexia; J96.22 Acute and chronic respiratory failure with hypercapnia; E78.5 Hyperlipidemia, unspecified; I11.0 Hypertensive heart disease with heart failure; M06.9 Rheumatoid arthritis, unspecified; F03.90 Unspecified dementia, unspecified severity, without behavioral disturbance, psychotic disturbance, mood disturbance, and anxiety; F32.9 Major depressive disorder, single episode, unspecified; R74.01 Elevation of levels of liver transaminase levels; D64.9 Anemia, unspecified; M54.89 Other dorsalgia; D72.820 Lymphocytosis (symptomatic); K76.89 Other specified diseases of liver; D50.9 Iron deficiency anemia, unspecified; R91.1 Solitary pulmonary nodule; G43.909 Migraine, unspecified, not intractable, without status migrainosus; R94.31 Abnormal electrocardiogram [ECG] [EKG]; Z85.41 Personal history of malignant neoplasm of cervix uteri; Z68.22 Body mass index [BMI] 22.0-22.9, adult
CPT/HCPCS: 0241U-QW; 36415; 71045-TC-FY; 80053; 82803; 82962; 83735; 83880; 84100; 84484; 85025; 85610; 85730; 86850; 86900; 86901; 93005; 93010; 94660; 99285-25

== ENCOUNTER 2024-03-27 22:50 | Inpatient (IN) | payer OTHER ==
[2024-03-27 23:04] VITALS: BMI 25.2
[2024-03-27] MEDS ORDERED: methylPREDNISolone NA SUCC 125 MG/2 ML VIAL ONE (23:25)
[2024-03-27] MEDS ORDERED: ACETAMINOPHEN INJECTION 100 ML ONE (23:25)
[2024-03-27] MEDS ORDERED: ALBUTEROL SO4 2.5/IPRATROPIUM 0.5 INH SOL 3 ML VIAL.NEB. NEB ONE ×2 (23:25→23:52)
[2024-03-27] MEDS: ALBUTEROL SO4 2.5/IPRATROPIUM 0.5 INH SOL 3 ML VIAL.NEB. NEB SCH (23:30)
[2024-03-28] MEDS: ACETAMINOPHEN 1000 MG/100 ML BAG IVPB ONE (00:01)
[2024-03-28] MEDS: methylPREDNISolone NA SUCC 125 MG/2 ML VIAL IVPB ONE (00:01)
[2024-03-28] MEDS: PIPERACILLIN/TAZOB 3.375 GM 3.375 GM in DEXTROSE 5%-WATER - 50 ML IVPB ONE (00:15)
[2024-03-28] MEDS ORDERED: PIPERACILLIN/TAZOB 3.375 GM 3.375 GM/50 ML BAG IVPB ONE (00:16)
[2024-03-28] MEDS ORDERED: VANCOMYCIN 1 GM PREMIX (F) 1 GM/200 ML BAG ONE (00:17)
[2024-03-28 00:18] LABS: VENOUS BASE EXCESS 2.4 mmol/L (-2-2); VENOUS O2 SATURATION 89.8 % (70-80); VENOUS PCO2 50.8 mmHg (38-52); VENOUS PH 7.363 (7.310-7.410)
[2024-03-28 00:19] LABS: POTASSIUM 4.5 mmol/L (3.5-5.1)
[2024-03-28 00:22] LABS: BLOOD UREA NITROGEN 17.8 mg/dL (7-18); CALCIUM 8.6 mg/dL (8.5-10.1)
[2024-03-28 00:25] LABS: INR 1.05 (0.83-1.09); PROTHROMBIN TIME (PATIENT) 12.1 SEC (9.7-13.0)
[2024-03-28 00:25] LABS: CREATININE 0.8 mg/dL (0.55-1.3)
[2024-03-28 00:27] LABS: ACTIVATED PTT 25.7 SECONDS (25.2-36.5)
[2024-03-28 00:27] LABS: BILIRUBIN,TOTAL 0.2 mg/dL (0.2-1); TOT PROT 6.2 g/dl (6.4-8.2)
[2024-03-28 00:40] LABS: BASO % 0.8 % (0-2.0); EOS % 1.6 % (0-4.5); HEMATOCRIT 24.8 % (32.4-45.2); LYMPH % 12.2 % (8-40); MEAN CELL VOLUME 62.3 fl (80-96); MEAN PLT VOLUME 8.6 fl (7.5-11.1); MONO % 5.6 % (3.8-10.2); NEUT % 79.8 % (42.8-82.8); PLATELET COUNT 346 10^3/uL (134-434); RBC 3.99 M/mm3 (3.60-5.2); RDW 19.8 % (11.6-15.6); WHITE BLOOD COUNT 8.5 K/mm3 (4.0-10.0)
[2024-03-28 00:46] LABS: MCH 17.5 pg (25.7-33.7)
[2024-03-28] MEDS: VANCOMYCIN 1,000 MG in DEXTROSE 5%-WATER - 250 ML IVPB ONE (02:09)
[2024-03-28 02:37] LABS: N-TERMINAL BNP 6470.3 pg/ml (5-450)
[2024-03-28] MEDS ORDERED: KETOROLAC TROMETHAMINE 15 MG/ML VIAL ONE (03:54)
[2024-03-28] MEDS: KETOROLAC TROMETHAMINE 15 MG/ML VIAL IVPUSH ONE (03:58)
[2024-03-28] MEDS ORDERED: ACETAMINOPHEN 1000 MG/100 ML BAG IVPB PRN (06:11)
[2024-03-28 06:26] LABS: EPI CELLS 24 /uL (0-25.1); HYALINE CASTS 0 /uL (0-3.1); PH,URINE 5.5 (5.0-8.0); URINE APPEARANCE TURBID; URINE BACTERIA 488 /uL (0-1359); URINE BILIRUBIN NEGATIVE (NEGATIVE); URINE COLOR YELLOW; URINE GLUCOSE (UA) NEGATIVE (NEGATIVE); URINE KETONE TRACE (NEGATIVE); URINE LEUK ESTERASE 2+ (NEGATIVE); URINE NITRITE NEGATIVE (NEGATIVE); URINE PROTEIN NEGATIVE (NEGATIVE); URINE UROBILINOGEN 0.2 mg/dL (0.2-1.0); URINE WBC 98 /uL (0-25.8)
[2024-03-28] MEDS ORDERED: ACETAMINOPHEN/CAFFEINE/BUTALBITAL 1 TAB PO ONE (07:22)
[2024-03-28 07:53] LABS: HEMATOCRIT 26.9 % (32.4-45.2); HEMOGLOBIN 7.4 GM/dL (10.7-15.3); MCHC 27.5 g/dl (32.0-36.0); MEAN CELL VOLUME 63.6 fl (80-96); MEAN PLT VOLUME 8.1 fl (7.5-11.1); PLATELET COUNT 314 10^3/uL (134-434); RBC 4.23 M/mm3 (3.60-5.2); WHITE BLOOD COUNT 6.1 K/mm3 (4.0-10.0)
[2024-03-28 07:59] LABS: MCH 17.5 pg (25.7-33.7)
[2024-03-28 08:01] LABS: POTASSIUM 3.7 mmol/L (3.5-5.1)
[2024-03-28 08:05] LABS: CALCIUM 8.3 mg/dL (8.5-10.1)
[2024-03-28 08:06] LABS: ALBUMIN 2.8 g/dl (3.4-5.0); BLOOD UREA NITROGEN 19.3 mg/dL (7-18); MAGNESIUM 1.8 mg/dL (1.8-2.4)
[2024-03-28 08:09] LABS: BILIRUBIN,TOTAL 0.3 mg/dL (0.2-1); TOT PROT 6.2 g/dl (6.4-8.2)
[2024-03-28 09:06] LABS: URINE RBC 36.4 /uL (0-23.9)
[2024-03-28] MEDS ORDERED: PIPERACILLIN/TAZOB 3.375 GM 3.375 GM in DEXTROSE 5%-WATER - 50 ML IVPB SCH (10:00)
[2024-03-28 10:11] LABS: ANISOCYTOSIS 1+; MACROCYTOSIS 0; OVALOCYTE 1+
[2024-03-28] MEDS: FUROSEMIDE 40 MG TABLET (FP) PO SCH (11:51)
[2024-03-28] MEDS: metoPROLOL SUCCINATE 25 MG TAB.SR.24H (FP) PO SCH (11:51)
[2024-03-28] MEDS: POTASSIUM CHLORIDE TABS 20 MEQ TABLET.ER (FP) PO SCH (11:52)
[2024-03-28] MEDS: PIPERACILLIN/TAZOB 3.375 GM 50 ML IVPB SCH (11:53)
[2024-03-28] MEDS: FLUTICASONE/UMECLIDIN/VILANTER(200-62.5-25 TRELEGY ELLIPTA) INAHLER IH SCH (11:56)
[2024-03-28] MEDS: CHOLECALCIFEROL (VIT D3) 1,000 UNIT (25 MCG) TABLET PO SCH (12:02)
[2024-03-28] MEDS: ACETAMINOPHEN/CAFFEINE/BUTALBITAL 1 TAB PO ONE (12:31)
[2024-03-28] MEDS: IRON SUCROSE INJECTION 200 MG in SODIUM CHLORIDE 100 ML IVPB ONE (12:33)
[2024-03-28] MEDS: methylPREDNISolone NA SUCC 40 MG/1 ML VIAL IVPUSH SCH (15:34)
[2024-03-29] MEDS ORDERED: VANCOMYCIN 750 MG in DEXTROSE 5%-WATER - 150 ML IVPB SCH (02:00)
[2024-03-29] MEDS: ZOLPIDEM TARTRATE 5 MG TABLET PO ONE (02:13)
[2024-03-29] MEDS: VANCOMYCIN/WATER FOR INJ (PEG) 750 MG/150 ML BAG IVPB SCH (02:30)
[2024-03-29 09:07] LABS: EOS % 0.7 % (0-4.5); HEMATOCRIT 26.3 % (32.4-45.2); HEMOGLOBIN 7.2 GM/dL (10.7-15.3); LYMPH % 12.8 % (8-40); MCHC 27.3 g/dl (32.0-36.0); MEAN CELL VOLUME 63.5 fl (80-96); MEAN PLT VOLUME 8.3 fl (7.5-11.1); MONO % 7.2 % (3.8-10.2); NEUT % 78.3 % (42.8-82.8); PLATELET COUNT 342 10^3/uL (134-434); RBC 4.15 M/mm3 (3.60-5.2); RDW 20.2 % (11.6-15.6); WHITE BLOOD COUNT 9.7 K/mm3 (4.0-10.0)
[2024-03-29 09:10] LABS: MCH 17.3 pg (25.7-33.7)
[2024-03-29 09:52] LABS: ALBUMIN 2.8 g/dl (3.4-5.0); BLOOD UREA NITROGEN 21.2 mg/dL (7-18)
[2024-03-29 09:53] LABS: CALCIUM 8.9 mg/dL (8.5-10.1)
[2024-03-29 09:55] LABS: CREATININE 0.8 mg/dL (0.55-1.3)
[2024-03-29 09:56] LABS: BILIRUBIN,TOTAL 0.2 mg/dL (0.2-1); TOT PROT 5.9 g/dl (6.4-8.2)
[2024-03-29] MEDS ORDERED: ALPRAZolam 0.25 MG TABLET PO PRN (11:48)
[2024-03-29] MEDS ORDERED: ALBUTEROL SO4 2.5/IPRATROPIUM 0.5 INH SOL 3 ML VIAL.NEB. NEB PRN (11:48)
[2024-03-29] MEDS: FUROSEMIDE 40 MG TABLET (FP) PO ONE (14:30)
[2024-03-29] MEDS: PIPERACILLIN/TAZOB 3.375 GM 50 ML IVPB SCH (18:08)
[2024-03-30] MEDS ORDERED: VANCOMYCIN/WATER FOR INJ (PEG) 750 MG/150 ML BAG IVPB SCH (02:00)
[2024-03-30] MEDS: PIPERACILLIN/TAZOB 3.375 GM 50 ML IVPB SCH (02:15)
[2024-03-30] MEDS: ACETAMINOPHEN 325 MG TABLET (FP) PO PRN (02:20)
[2024-03-30] MEDS: MELATONIN 5 MG TABLETS PO PRN (02:22)
[2024-03-30 08:04] LABS: EOS % 2.5 % (0-4.5); HEMATOCRIT 30.9 % (32.4-45.2); HEMOGLOBIN 8.8 GM/dL (10.7-15.3); LYMPH % 17.9 % (8-40); MCH 18.5 pg (25.7-33.7); MCHC 28.4 g/dl (32.0-36.0); MEAN CELL VOLUME 65.2 fl (80-96); MEAN PLT VOLUME 8.2 fl (7.5-11.1); MONO % 9.1 % (3.8-10.2); NEUT % 69.5 % (42.8-82.8); PLATELET COUNT 365 10^3/uL (134-434); RBC 4.74 M/mm3 (3.60-5.2); RDW 23.1 % (11.6-15.6); WHITE BLOOD COUNT 11.2 K/mm3 (4.0-10.0)
[2024-03-30 08:52] LABS: POTASSIUM 3.6 mmol/L (3.5-5.1)
[2024-03-30 08:56] LABS: CALCIUM 9.1 mg/dL (8.5-10.1)
[2024-03-30 08:57] LABS: ALBUMIN 2.8 g/dl (3.4-5.0); BLOOD UREA NITROGEN 20.3 mg/dL (7-18)
[2024-03-30 09:00] LABS: CREATININE 0.9 mg/dL (0.55-1.3)
[2024-03-30 09:01] LABS: BILIRUBIN,TOTAL 0.4 mg/dL (0.2-1)
[2024-03-30 09:02] LABS: TOT PROT 6.1 g/dl (6.4-8.2)
[2024-03-30] MEDS: PANTOPRAZOLE 40 MG TABLET PO SCH (09:55)
[2024-03-30] MEDS: FERROUS SO4 325 MG TABLET (FP) PO SCH (09:55)
[2024-03-31 01:47] VITALS: RESP 18
[2024-03-31] MEDS: ACETAMINOPHEN/CAFFEINE/BUTALBITAL 1 TAB PO ONE (09:23)
[2024-03-31 09:32] VITALS: BP 95/59; PULSE 84; TEMP 97.2
== END 2024-03-31 09:50 | disposition home or self-care (01) | DRG 871 ==
LOC: JER 22:50 → JERBED 03-28 04:23 → J4S 03-28 06:29
PROVIDERS: ADMIT Internal Medicine; ATTEND Internal Medicine
PROC: 30233N1 Transfusion of Nonautologous Red Blood Cells into Peripheral Vein, Percutaneous Approach (ICD-10-PCS; principal; 2024-03-29)
DX: A41.89 Other specified sepsis (principal); G93.41 Metabolic encephalopathy; I50.23 Acute on chronic systolic (congestive) heart failure; J18.9 Pneumonia, unspecified organism; N39.0 Urinary tract infection, site not specified; J44.9 Chronic obstructive pulmonary disease, unspecified; I25.10 Atherosclerotic heart disease of native coronary artery without angina pectoris; I11.0 Hypertensive heart disease with heart failure; E78.5 Hyperlipidemia, unspecified; D50.9 Iron deficiency anemia, unspecified; R09.02 Hypoxemia; R06.02 Shortness of breath
CPT/HCPCS: 0241U-QW; 36415; 36430; 70450-TC; 71045-TC-FY; 71250-TC; 76604; 80053; 80061; 81003; 82272; 82803; 83540; 83550; 83605; 83735; 83880; 84443; 84484; 85025; 85610; 85730; 86850; 86900; 86901; 86922; 87040; 87086; 87186; 87899; 93005; 93010; 93306-TC; 93308; 97116-GP; 97161-GP; 99285-25; J0131; J1756; P9058

== ENCOUNTER 2024-06-21 03:03 | Inpatient (IN) | payer OTHER ==
[2024-06-21] MEDS ORDERED: AZITHROMYCIN IVPB 500 MG/250 ML BAG IVPB ONE (03:11)
[2024-06-21] MEDS ORDERED: methylPREDNISolone NA SUCC 125 MG/2 ML VIAL ONE (03:11)
[2024-06-21] MEDS ORDERED: CEFTRIAXONE 1 G/50 ML PREMIX 50 ML IVPB ONE (03:11)
[2024-06-21] MEDS: methylPREDNISolone NA SUCC 125 MG/2 ML VIAL IVPB ONE (03:30)
[2024-06-21 03:34] LABS: ARTERIAL BLD GAS O2 SATURATION 96.4 % (95-98); ARTERIAL BLOOD GAS BASE EXCESS -10.7 mmol/L (-2-2); ARTERIAL BLOOD GAS PO2 121.6 mmHg (80-100)
[2024-06-21] MEDS: AZITHROMYCIN IVPB 500 MG in DEXTROSE 5%-WATER - 250 ML IVPB ONE (03:40)
[2024-06-21] MEDS: CEFTRIAXONE 1,000 MG in DEXTROSE 5%-WATER - 50 ML IVPB ONE (03:40)
[2024-06-21 03:46] LABS: ALLENS TEST POSITIVE; ARTERIAL BLOOD GAS pH 7.042 (7.350-7.450)
[2024-06-21 03:47] LABS: VENT MODE V-A/C; VENT RATE 12
[2024-06-21] MEDS ORDERED: ACETAMINOPHEN INJECTION 100 ML ONE (03:48)
[2024-06-21] MEDS: ACETAMINOPHEN 1000 MG/100 ML BAG IVPB ONE (03:52)
[2024-06-21 03:54] LABS: VENOUS BASE EXCESS -9.6 mmol/L (-2-2); VENOUS O2 SATURATION 64.6 % (70-80)
[2024-06-21 03:55] LABS: VENOUS PH 7.055 (7.310-7.410)
[2024-06-21 03:56] LABS: VENOUS PCO2 82.8 mmHg (38-52)
[2024-06-21] MEDS ORDERED: VANCOMYCIN 1 GM PREMIX (F) 1 GM/200 ML BAG ONE (04:01)
[2024-06-21] MEDS ORDERED: PIPERACILLIN/TAZOB 4.5 GM 4.5 GM/100 ML BAG IVPB ONE (04:01)
[2024-06-21] MEDS: VANCOMYCIN 1,000 MG in DEXTROSE 5%-WATER - 250 ML IVPB ONE (04:10)
[2024-06-21 04:20] LABS: HEMATOCRIT 44.6 % (32.4-45.2); HEMOGLOBIN 13.3 GM/dL (10.7-15.3); MCH 25.2 pg (25.7-33.7); MCHC 29.8 g/dl (32.0-36.0); MEAN CELL VOLUME 84.3 fl (80-96); MEAN PLT VOLUME 7.7 fl (7.5-11.1); PLATELET COUNT 508 10^3/uL (134-434); POTASSIUM 4.4 mmol/L (3.5-5.1); RBC 5.29 M/mm3 (3.60-5.2); WHITE BLOOD COUNT 26.3 K/mm3 (4.0-10.0)
[2024-06-21 04:21] LABS: ALBUMIN 2.7 g/dl (3.4-5.0); BLOOD UREA NITROGEN 31.4 mg/dL (7-18); CALCIUM 8.7 mg/dL (8.5-10.1)
[2024-06-21] MEDS: PIPERACILLIN/TAZOB 4.5 GM 4.5 GM in DEXTROSE 5%-WATER 100 ML IVPB ONE (04:23)
[2024-06-21 04:25] LABS: CREATININE 1.2 mg/dL (0.55-1.3)
[2024-06-21 04:26] LABS: BILIRUBIN,TOTAL 0.3 mg/dL (0.2-1); TOT PROT 6.2 g/dl (6.4-8.2)
[2024-06-21 04:46] LABS: ANISOCYTOSIS 0; MACROCYTOSIS 0; OVALOCYTE 2+
[2024-06-21 04:52] LABS: EPI CELLS 21 /uL (0-25.1); HYALINE CASTS 1 /uL (0-3.1); URINE APPEARANCE TURBID; URINE BACTERIA >9,000 /uL (0-1359); URINE BILIRUBIN NEGATIVE (NEGATIVE); URINE COLOR YELLOW; URINE GLUCOSE (UA) NEGATIVE (NEGATIVE); URINE KETONE NEGATIVE (NEGATIVE); URINE LEUK ESTERASE 2+ (NEGATIVE); URINE NITRITE NEGATIVE (NEGATIVE); URINE PROTEIN 2+ (NEGATIVE); URINE RBC 74 /uL (0-23.9); URINE UROBILINOGEN 0.2 mg/dL (0.2-1.0)
[2024-06-21 05:25] VITALS: BMI 21.9
[2024-06-21] MEDS ORDERED: ACETAMINOPHEN 1000 MG/100 ML BAG IVPB PRN (05:45)
[2024-06-21] MEDS: MIDAZOLAM IN 0.9 % SOD.CHLORID 100 MG/100 ML PLAST..BAG IVPB SCH (05:47)
[2024-06-21] MEDS: SODIUM CHLORIDE 1,000 ML IV SCH (05:50)
[2024-06-21] MEDS ORDERED: ALBUTEROL SO4 2.5/IPRATROPIUM 0.5 INH SOL 3 ML VIAL.NEB. NEB PRN (06:10)
[2024-06-21 06:24] LABS: ARTERIAL BLD GAS O2 SATURATION 89.2 % (95-98); ARTERIAL BLOOD GAS BASE EXCESS -7.6 mmol/L (-2-2); ARTERIAL BLOOD GAS PO2 78.2 mmHg (80-100)
[2024-06-21] MEDS: FENTANYL NS IVPB 500 MCG/100 ML BAG IVPB SCH (06:39)
[2024-06-21] MEDS: FENTANYL CITRATE/PF 50 MCG/ML VIAL IVPUSH ONE (06:40)
[2024-06-21 06:41] LABS: ARTERIAL BLOOD GAS pH 7.078 (7.350-7.450)
[2024-06-21 06:44] LABS: MAGNESIUM 1.7 mg/dL (1.8-2.4)
[2024-06-21 06:48] LABS: PHOSPHOROUS 6.8 mg/dL (2.5-4.9)
[2024-06-21] MEDS ORDERED: NOREPINEPHRINE BITARTRATE 4 MG/4 ML ML IV ONE (07:13)
[2024-06-21] MEDS: NOREPINEPHRINE BITARTRATE 4,000 MCG in DEXTROSE 5%-WATER - 496 ML IV SCH (07:25)
[2024-06-21] MEDS: INSULIN (NOVOLOG) ASPART 100 UNITS/ML 10ML VIAL SQ SCH (07:28)
[2024-06-21] MEDS ORDERED: MAGNESIUM SULF 50% (8.12 MEQ/2 ML-1 GM VIAL) ONE (07:41)
[2024-06-21] MEDS: MAGNESIUM 2GM/50ML STERILE WATER IVPB IVPB ONE (07:54)
[2024-06-21] MEDS: INSULIN ASPART SLIDING SCALE (NOVOLOG) 1 VIAL SQ SCH (07:54)
[2024-06-21] MEDS ORDERED: VASopressin 20 UNITS/ML VIAL IV ONE (07:57)
[2024-06-21] MEDS: HYDROCORTISONE SOD SUCCINATE 100 MG/2 ML VIAL IVPB SCH (08:01)
[2024-06-21 09:04] LABS: ARTERIAL BLD GAS O2 SATURATION 90.3 % (95-98); ARTERIAL BLOOD GAS BASE EXCESS -7.5 mmol/L (-2-2); ARTERIAL BLOOD GAS PO2 69.3 mmHg (80-100); ARTERIAL BLOOD GAS pH 7.222 (7.350-7.450)
[2024-06-21 09:05] LABS: ALLENS TEST POSITIVE
[2024-06-21 09:06] LABS: VENT MODE V/AC
[2024-06-21 09:07] LABS: VENT RATE 30
[2024-06-21] MEDS ORDERED: ROCURONIUM BROMIDE 50 MG/5 ML VIAL ONE ×2 (09:22→14:04)
[2024-06-21] MEDS: ROCURONIUM BROMIDE 50 MG/5 ML VIAL IV ONE (09:25)
[2024-06-21] MEDS: PANTOPRAZOLE SODIUM 40 MG VIAL IVPUSH SCH (09:44)
[2024-06-21] MEDS: MUPIROCIN 2% TOPICAL OINTMENT FOR DECOLONIZATION NS SCH (09:44)
[2024-06-21] MEDS: HEPARIN NA (PORCINE) 5,000 UNITS/ML 1ML VIAL SQ SCH (09:44)
[2024-06-21] MEDS: NOREPINEPHRINE 0.9 % NACL 8 MG/250 ML BAG IVPB SCH (10:33)
[2024-06-21] MEDS: VASopressin 40 UNITS/100 ML BAG IV SCH (10:34)
[2024-06-21 11:49] LABS: ARTERIAL BLD GAS O2 SATURATION 95.9 % (95-98); ARTERIAL BLOOD GAS BASE EXCESS -9.4 mmol/L (-2-2); ARTERIAL BLOOD GAS PO2 102.5 mmHg (80-100)
[2024-06-21 11:52] LABS: ALLENS TEST POSITIVE
[2024-06-21 11:53] LABS: VENT MODE A/C; VENT RATE 34
[2024-06-21 11:58] LABS: ARTERIAL BLOOD GAS pH 7.156 (7.350-7.450)
[2024-06-21] MEDS: PIPERACILLIN/TAZOB 3.375 GM 50 ML IVPB SCH (12:49)
[2024-06-21] MEDS ORDERED: HEPARIN NA (PORCINE) 5,000 UNITS/ML 1ML VIAL IVPUSH PRN ×2 (13:21)
[2024-06-21] MEDS ORDERED: HEPARIN NA (PORCINE) 5,000 UNITS/ML 1ML VIAL SQ SCH (14:00)
[2024-06-21] MEDS ORDERED: HEPARIN - 25,000 UNIT in SODIUM CHLORIDE 495 ML IV SCH (14:30)
[2024-06-21] MEDS: SODIUM BICARBONATE 8.4% - 75 MEQ in DEXTROSE 5%-WATER - 1,000 ML IV SCH ×2 (14:42→18:49)
[2024-06-21] MEDS: HEPARIN INFUSION - 25,000 UNITS/500 ML INFUS.BAG IVPB SCH (15:04)
[2024-06-21 15:06] LABS: VENT MODE V-A/C; VENT RATE 16
[2024-06-21] MEDS: VANCOMYCIN 1 GM PREMIX (F) 1 GM/200 ML BAG IVPB SCH (15:27)
[2024-06-21 16:37] LABS: VENOUS BASE EXCESS -12.2 mmol/L (-2-2); VENOUS O2 SATURATION 79.6 % (70-80); VENOUS PCO2 66.7 mmHg (38-52)
[2024-06-21 16:39] LABS: VENOUS PH 7.073 (7.310-7.410)
[2024-06-21] MEDS ORDERED: SODIUM BICARBONATE 8.4% 50 MEQ/50 ML DISP.SYRIN ONE (16:41)
[2024-06-21] MEDS ORDERED: SODIUM BICARBONATE 8.4% - 75 MEQ in DEXTROSE 5%-WATER - 1,000 ML IV SCH (17:30)
[2024-06-21] MEDS ORDERED: PIPERACILLIN/TAZOB 3.375 GM 50 ML IVPB SCH (18:00)
[2024-06-21] MEDS: SODIUM BICARBONATE 8.4% 50 MEQ/50 ML VIAL IVPUSH SCH (18:45)
[2024-06-21] MEDS: FLUDROCORTISONE ACETATE 0.1 MG TABLET (FP) PO SCH (20:08)
[2024-06-21 20:15] LABS: ARTERIAL BLD GAS O2 SATURATION 95.7 % (95-98); ARTERIAL BLOOD GAS BASE EXCESS -4.2 mmol/L (-2-2); ARTERIAL BLOOD GAS PO2 93.3 mmHg (80-100); ARTERIAL BLOOD GAS pH 7.235 (7.350-7.450)
[2024-06-21 20:20] LABS: VENT MODE V A/C; VENT RATE 34
[2024-06-21] MEDS: CHLORHEXIDINE GLUCONATE 4% CLEANSER FOR DECOLONIZATION TP SCH (21:28)
[2024-06-21 21:59] LABS: INR 1.21 (0.83-1.09); PROTHROMBIN TIME (PATIENT) 13.3 SEC (9.7-13.0)
[2024-06-21 22:02] LABS: ACTIVATED PTT 62.8 SECONDS (25.2-36.5)
[2024-06-21 22:13] LABS: POTASSIUM 3.7 mmol/L (3.5-5.1)
[2024-06-21 22:20] LABS: BLOOD UREA NITROGEN 38.7 mg/dL (7-18)
[2024-06-21 22:23] LABS: CREATININE 1.7 mg/dL (0.55-1.3); PHOSPHOROUS 6.2 mg/dL (2.5-4.9)
[2024-06-21 22:24] LABS: BILIRUBIN,TOTAL 0.4 mg/dL (0.2-1); CALCIUM 7.3 mg/dL (8.5-10.1); TOT PROT 4.9 g/dl (6.4-8.2)
[2024-06-22 06:07] LABS: ARTERIAL BLOOD GAS BASE EXCESS -5.1 mmol/L (-2-2); ARTERIAL BLOOD GAS pH 7.223 (7.350-7.450)
[2024-06-22 06:10] LABS: VENT MODE V-A/C; VENT RATE 34
[2024-06-22 06:12] VITALS: TEMP 97.7
[2024-06-22 07:13] LABS: HEMATOCRIT 42.9 % (32.4-45.2); HEMOGLOBIN 12.7 GM/dL (10.7-15.3); MCH 24.8 pg (25.7-33.7); MCHC 29.5 g/dl (32.0-36.0); MEAN PLT VOLUME 8.4 fl (7.5-11.1); PLATELET COUNT 332 10^3/uL (134-434); RBC 5.11 M/mm3 (3.60-5.2); RDW 15.9 % (11.6-15.6)
[2024-06-22 07:30] LABS: CHLORIDE 95 mmol/L (98-107); POTASSIUM 3.9 mmol/L (3.5-5.1); SODIUM 137 mmol/L (136-145)
[2024-06-22 07:33] LABS: ALBUMIN 1.8 g/dl (3.4-5.0); ANION GAP 13 mmol/L (4-13); BLOOD UREA NITROGEN 42.7 mg/dL (7-18); CO2 29 mmol/L (21-32); GLUCOSE,RANDOM 233 mg/dL (74-106); MAGNESIUM 1.9 mg/dL (1.8-2.4)
[2024-06-22 07:36] LABS: PHOSPHOROUS 6.4 mg/dL (2.5-4.9); SGOT/AST 68 U/L (15-37); SGPT/ALT 38 U/L (13-61)
[2024-06-22 07:38] LABS: BILIRUBIN,TOTAL 0.5 mg/dL (0.2-1); TOT PROT 4.8 g/dl (6.4-8.2)
[2024-06-22 07:39] LABS: ALK PHOS 58 U/L (45-117); CALCIUM 6.9 mg/dL (8.5-10.1)
[2024-06-22 08:01] LABS: WHITE BLOOD COUNT 34.3 K/mm3 (4.0-10.0)
[2024-06-22] MEDS: AZITHROMYCIN IVPB 500 MG/250 ML BAG IVPB SCH (09:20)
[2024-06-22 10:04] LABS: ANISOCYTOSIS 1+
[2024-06-22] MEDS: MILRINONE 20MG/100ML IVPB - 20,000 MCG/100 ML ML IVPB SCH (10:16)
[2024-06-22] MEDS: DEXMEDETOMIDINE PREMIX 400 MCG/100 ML BAG IVPB SCH (10:17)
[2024-06-22] MEDS: DOPAMINE 400 MG/D5W - 400,000 MCG/250 ML INFUS.BAG IVPB SCH (10:30)
[2024-06-22 10:31] VITALS: RESP 36
[2024-06-22 10:58] LABS: VENOUS BASE EXCESS -8.3 mmol/L (-2-2); VENOUS O2 SATURATION 33.1 % (70-80)
[2024-06-22 11:01] LABS: VENOUS PCO2 95.1 mmHg (38-52); VENOUS PH 7.033 (7.310-7.410)
[2024-06-22 11:39] VITALS: BP 59/49; PULSE 109
[2024-06-23] MEDS ORDERED: VANCOMYCIN 1 GM PREMIX (F) 1 GM/200 ML BAG IVPB SCH (16:00)
== END 2024-06-22 10:42 | disposition expired | DRG 871 ==
LOC: JER 03:03 → JERBED 04:13 → JICU 05:14
PROVIDERS: ADMIT Internal Medicine Pulmonary Disease; ATTEND Internal Medicine Pulmonary Disease
PROC: 5A1935Z Respiratory Ventilation, Less than 24 Consecutive Hours (ICD-10-PCS; principal; 2024-06-21)
PROC: 0BH17EZ Insertion of Endotracheal Airway into Trachea, Via Natural or Artificial Opening (ICD-10-PCS; 2024-06-21)
PROC: 03HY32Z Insertion of Monitoring Device into Upper Artery, Percutaneous Approach (ICD-10-PCS; 2024-06-21)
PROC: 4A133B1 Monitoring of Arterial Pressure, Peripheral, Percutaneous Approach (ICD-10-PCS; 2024-06-21)
PROC: 4A133J1 Monitoring of Arterial Pulse, Peripheral, Percutaneous Approach (ICD-10-PCS; 2024-06-21)
PROC: 02HV33Z Insertion of Infusion Device into Superior Vena Cava, Percutaneous Approach (ICD-10-PCS; 2024-06-21)
PROC: B548ZZA Ultrasonography of Superior Vena Cava, Guidance (ICD-10-PCS; 2024-06-21)
DX: A41.9 Sepsis, unspecified organism (principal); G93.41 Metabolic encephalopathy; I21.4 Non-ST elevation (NSTEMI) myocardial infarction; J96.21 Acute and chronic respiratory failure with hypoxia; J96.22 Acute and chronic respiratory failure with hypercapnia; R65.21 Severe sepsis with septic shock; J69.0 Pneumonitis due to inhalation of food and vomit; I50.22 Chronic systolic (congestive) heart failure; N17.9 Acute kidney failure, unspecified; E87.20 Acidosis, unspecified; J44.1 Chronic obstructive pulmonary disease with (acute) exacerbation; N39.0 Urinary tract infection, site not specified; I25.10 Atherosclerotic heart disease of native coronary artery without angina pectoris; I11.0 Hypertensive heart disease with heart failure; E78.5 Hyperlipidemia, unspecified; Z99.81 Dependence on supplemental oxygen; D75.839 Thrombocytosis, unspecified; E83.42 Hypomagnesemia; R57.0 Cardiogenic shock; I46.9 Cardiac arrest, cause unspecified
CPT/HCPCS: 0241U-QW; 31500; 36415; 36600; 70450-TC; 71045-TC-FY; 71250-TC; 80053; 81003; 82550; 82803; 82962; 83735; 83880; 84100; 84484; 85025; 85610; 85730; 87040; 87070; 87086; 87186; 87205; 87481; 93005; 93010; 94002; 99285-25; J0131; J1644; J3490